=== PATIENT | female | born 1940 | race Caucasian/White ===

== ENCOUNTER 2020-07-04 11:01 | Outpatient (REF) | payer MEDICARE, SELFPAY ==
--- NOTE | ~2020-07-04 | MM_ITS ---
EXAMINATION: MM SCREENING DIGITAL BREAST TOMOSYNTHESIS, BILATERAL CLINICAL INFORMATION: Screening. Asymptomatic. The lifetime risk of breast cancer based on the Tyrer-Cuzick Model is 0.8%. COMPARISON: Mammography: June 13, 2019 and studies dating back to March 07, 2010 TECHNIQUE: Digital breast tomosynthesis is performed in both the craniocaudal and mediolateral oblique views along with computer-aided detection (CAD). Synthesized 2D images are generated from the tomosynthesis. FINDINGS: There are scattered areas of fibroglandular density (ACR BI-RADS breast composition Category b). There are no significant masses, abnormal calcifications, or other abnormalities. MM/MM tomosynthesis screening BI IMPRESSION: There are no significant changes from prior study. ASSESSMENT: BI-RADS 1: Negative RECOMMENDATION: Routine annual mammography screening. This patient's information was entered into a reminder system with a target due date for their next mammogram.
== END 2020-07-04 11:02 | disposition home or self-care (01) ==
LOC: HO.MAMMO 11:01
PROVIDERS: Visit Provider Internal Medicine
DX: Z12.31 Encounter for screening mammogram for malignant neoplasm of breast (principal)
CPT/HCPCS: 77063; 77067

== ENCOUNTER 2021-07-05 10:18 | Outpatient (REF) | payer MEDICARE, SELFPAY ==
--- NOTE | ~2021-07-05 | MM_ITS ---
EXAMINATION: MM SCREENING DIGITAL BREAST TOMOSYNTHESIS, BILATERAL CLINICAL INFORMATION: Screening. Asymptomatic. The lifetime risk of breast cancer based on the Tyrer-Cuzick Model is 1%. COMPARISON: Mammography: 07/04/2020, 06/13/2019, 06/11/2018 TECHNIQUE: Digital breast tomosynthesis is performed in both the craniocaudal and mediolateral oblique views along with computer-aided detection (CAD). Synthesized 2D images are generated from the tomosynthesis. FINDINGS: There are scattered areas of fibroglandular density (ACR BI-RADS breast composition Category b). Parenchymal pattern is similar to prior studies. There is stable oval asymmetric density central left breast mid depth on MLO view similar to prior exams. There is no developing density or interval mass or architectural abnormality in either breast. No abnormal calcifications. The axilla and skin contours are unremarkable. MM/MM tomosynthesis screening BI IMPRESSION: No significant changes from prior exams. ASSESSMENT: BI-RADS 2: Benign RECOMMENDATION: Routine annual mammography screening. This patient's information was entered into a reminder system with a target due date for their next mammogram.
== END 2021-07-05 10:19 | disposition home or self-care (01) ==
LOC: HO.MAMMO 10:18
PROVIDERS: PCP Internal Medicine; Visit Provider Internal Medicine
DX: Z12.31 Encounter for screening mammogram for malignant neoplasm of breast (principal)
CPT/HCPCS: 77063; 77067

== ENCOUNTER 2022-07-07 10:16 | Outpatient (REF) | payer MEDICARE, SELFPAY ==
--- NOTE | ~2022-07-07 | MM_ITS ---
EXAMINATION: MM SCREENING DIGITAL BREAST TOMOSYNTHESIS, BILATERAL CLINICAL INFORMATION: Screening. Asymptomatic. COMPARISON: Mammography: 07/05/2021, 07/04/2020, 06/13/2019 TECHNIQUE: Digital breast tomosynthesis is performed in both the craniocaudal and mediolateral oblique views along with computer-aided detection (CAD). Synthesized 2D images are generated from the tomosynthesis. FINDINGS: There are scattered areas of fibroglandular density (ACR BI-RADS breast composition Category b). There are no significant masses, abnormal calcifications, or other abnormalities. No architectural abnormality or developing density or significant change from prior studies. There is a dermal lesion overlying the mid medial left breast, marked with skin marker. There are some scattered incidental vascular calcifications. The axilla are unremarkable. MM/MM tomosynthesis screening BI IMPRESSION: No mammographic evidence of malignancy. ASSESSMENT: BI-RADS 2: Benign RECOMMENDATION: Routine annual mammography screening. This patient's information was entered into a reminder system with a target due date for their next mammogram.
== END 2022-07-07 10:17 | disposition home or self-care (01) ==
LOC: HO.MAMMO 10:16
PROVIDERS: Visit Provider Internal Medicine
DX: Z12.31 Encounter for screening mammogram for malignant neoplasm of breast (principal)
CPT/HCPCS: 77063; 77067

== ENCOUNTER 2024-12-25 14:55 | Emergency (ER) | payer MEDICARE, SELFPAY ==
--- OUTSIDE RECORDS SUMMARY | 2024-12-20 23:59 | XMS_ITS | Continuity of Care Document ---
Author Organization [facility], [place] Pedro lt Address [address] [place] [address]- Care Team Providers Care Front Services Agent Name Role Phone Bere DENTON, Elanie Mcwilliams Primary Care Physician [phone] Encounter [facility] Date(s): 12/13/24 - 12/20/24 [facility] [place] [address] [place] [address]- Encounter Diagnosis Benign Essential Hypertension(Discharge Diagnosis) - 12/12/24 Osteoporosis(Discharge Diagnosis) - 12/13/24 Fatty liver(Discharge Diagnosis) - 12/13/24 Subclinical hypothyroidism(Discharge Diagnosis) - 12/13/24 Disturbance of memory MOCA immed recall 0/5(Discharge Diagnosis) - 12/13/24 Attending Physician: Elaine Blackburn NP Referring Physician: Tre Morales MD Encounter Type: Office Visit Allergies, Adverse Reactions, Alerts Substance Criticality Severity Reaction Reaction Severity Status amoxicillin 1 Active methenamine 2 Active Nuts Active Paxlovid 3 Active nitrofurantoin 4 Act adalberto lisinopril cough Active Augmentin Active Percocet 7.5/325 nausea Act adalberto 1pt tolerated piperacillin/tazobactam without issue (03/2013) 2raynauds 3diarrhea 4naisea hair loss Immunizations Given and Recorded Vaccine Date Status Refusal Reason RSV vaccine, preF A-preF B, recombinant 06/03/24 R ecorded influenza virus vaccine, inactivated 01/15/24 Jassi rded influenza virus vaccine, inactivated 02/01/23 Jassi rded influenza virus vaccine, inactivated 02/05/22 Jassi rded influenza virus vaccine, inactivated 01/16/21 Jassi rded influenza virus vaccine, inactivated 02/10/18 Give n influenza virus vaccine, inactivated 1 02/02/17 Gi sandra influenza virus vaccine, inactivated 02/14/16 Give n influenza virus vaccine, inactivated 02/06/15 Give n influenza virus vaccine, inactivated 02/07/14 Give n influenza virus vaccine, inactivated 01/11/13 Give n influenza virus vaccine, inactivated 02/19/11 Give n influenza virus vaccine, inactivated 03/01/10 Give n SARS-CoV-2(COVID-19)mRNA-LNP vac([id number]) 01/15/24 Recorded SARS-CoV-2(COVID-19)mRNA-LNP vac([id number]) 02/01/23 Recorded pneumococcal 20-valent conjugate vaccine 2 10/29/22 Given tetanus-diphtheria toxoids (Td) 3 07/09/22 Given tetanus-diphtheria toxoids (Td) 4 07/11/08 Given [id number] 12y+ bivalent booster vax 02/05/22 Recorded SARS-CoV-2 mRNA ([id number]) vax 09/03/21 Recorded SARS-CoV-2 (COVID-19) mRNA BNT-162b2 vac 02/12/21 Recorded SARS-CoV-2 (COVID-19) mRNA BNT-162b2 vac 06/25/20 Given SARS-CoV-2 (COVID-19) mRNA BNT-162b2 vac 06/04/20 Recorded hepatitis B adult vaccine 07/12/20 Given hepatitis B adult vaccine 01/23/20 Given hepatitis B adult vaccine 12/21/19 Given Hepatitis A Adult Vaccine 07/12/20 Given Hepatitis A Adult Vaccine 12/21/19 Given Influenza Virus Vaccine (oldterm) 12/28/19 Recorde d Influenza Virus Vaccine (oldterm) 02/01/14 Recorde d Influenza Virus Vaccine (oldterm) 02/09/09 Given Influenza Virus Vaccine (oldterm) 02/29/08 Given zoster vaccine, inactivated 10/26/17 Recorded zoster vaccine, inactivated 08/26/17 Recorded pneumococcal 13-valent vaccine 05/16/14 Given pneumococcal 13-valent vaccine 05/16/14 Given tetanus/diphtheria/pertussis, acel(Tdap) 03/12/12 Given Fluzone Preservative-Free (oldterm) 5 01/27/12 Giv en Zostavax (oldterm) 01/11/11 Given pneumococcal 23-valent vaccine 6 07/11/08 Given pneumococcal 23-valent vaccine 09/05/98 Given Influenza Inactive (IM) (oldterm) 7 04/15/06 Given Tetanus Toxoid Vaccine (oldterm) 05/04/98 Given 1Result Comment: [02/02/2017] [facility] [id number] HD 2Result Comment: [id number] 3Result Comment: [facility]# [id number] 4Admin Note: ADMIN BY MEGGAN 5Anikolein Note: vis given 6Admin Note: ADMIN BY MEGGAN 7Amiko Note: recieved elsewhere Medications amLODIPine 5 mg oral tablet 1 tablet, By Mouth, Daily, # 30 tablet, 5 Refills, Maintenance, 11/08/24 7:11:00 AM EDT, [facility] # [facility], 159.5, cm, 10/18/24 10:10:00 EDT, Height, 63.5, kg, 03/17/23 17:41:00 EST, Dry Weight Start Date: 11/08/24 Status: Ordered Quantity: 30.0 Unit: tablet Repeat number: 6 aspirin 81 mg oral delayed release tablet 81 mg, 1, tablet, By Mouth, Daily, # 30 tablet, Refills 0, Maintenance, 09/01/20 10:24:00 PM EDT, Partial fill upon patient request if the prescription is for a schedule II opioid drug. Start Date: 09/01/20 Status: Ordered Quantity: 30.0 Unit: tablet Repeat number: 1 diclofenac 1% topical gel 1 application, Topically, 4 times a day, # 100 Gm, 0 Refills, Maintenance, 10/18/24 10:21:00 AM EDT,Gel, [facility] # [facility], Partial fill upon patient request if the prescription is for a schedule II opioid drug., 159.5, cm, 10/18/24 10:10:00 EDT, Height, 63.5, kg, 03/17/23 17:41:00 EST, Dry Weight Start Date: 10/18/24 Status: Ordered Quantity: 100.0 Unit: g Repeat number: 1 Estrace Vaginal Cream 0.1 mg/g See Instructions, Three times a week, # 42.5 Gm, 0 Refills, Maintenance, 05/14/22 2:45:00 PM EST, [facility] # [facility], Partial fill upon patient request if the prescription is for a schedule II opioiddrug., 165.1, cm, 04/29/22 11:53:00 EST, Height, 61.69, kg, 12/03/21 16:38:00 EDT, Dry Weight Start Date: 05/14/22 Status: Ordered Quantity: 42.5 Unit: g Repeat number: 1 Indications: Urinary tract infection, site not specified; famotidine 40 mg oral tablet 1 tablet, By Mouth, Daily at bedtime, # 90 tablet, 1 Refills, Maintenance, 07/11/24 7:10:00 PM EDT, [facility] # [facility], 159.5, cm, 06/03/24 9:08:00 EST, Height, 63.5, kg, 03/17/23 17:41:00 EST, Dry Weight Start Date: 07/11/24 Status: Ordered Quantity: 90.0 Unit: tablet Repeat number: 1 fluticasone 50 mcg/inh nasal spray See Instructions, INHALE 2 SPRAYS IN EACH NOSTRIL DAILY. USE OPPOSITE HAND FOR EACH NOSTRIL, # 16 Gm, 5 Refills, Maintenance, 10/17/24 7:13:00 AM EDT, [facility] # [facility], 30, INHALE 2 SPRAYS IN EACH NOSTRIL DAILY. USE OPPOSITE HAND FOR EACH NOSTRIL, 159.5, cm, 06/03/24 9:08:00 EST, Height, 63.5, kg, 03/17/23 17:41:00 EST, Dry Weight Start Date: 10/17/24 Status: Ordered Quantity: 16.0 Unit: g Repeat number: 6 hydrocortisone 1% topical cream 1 application, Topically, 3 times a day, # 21 Gm, 1 Refills, Maintenance, 03/04/21 11:10:00 AM EDT, Cream, [facility] # [facility], Partial fill upon patient request if the prescription is for a schedule II opioid drug., 1 application Topically 3 times a day, 165, cm, 02/19/21 9:19:00 EDT, Height, 62, kg, 02/04/21 18:38:00 EDT, Dry Weight Start Date: 03/04/21 Status: Ordered Quantity: 21.0 Unit: g Repeat number: 2 losartan 50 mg oral tablet 50 mg, 1, tablet, By Mouth, Daily, # 90 tablet, Refills 1, Tot. Refills 1, Maintenance, 08/24/24 11:01:00 AM EDT, Route to Pharmacy Electronically, [facility], 159.5, cm, 06/03/24 9:08:00 EST, Height, 63.5, kg, 03/17/23 17:41:00 EST, Dry Weight Start Date: 08/24/24 Status: Ordered Quantity: 90.0 Unit: tablet Repeat number: 2 MiraLax oral powder for reconstitution = 17 Gm, By Mouth, Daily, dissolve in water before taking, # 255 Gm, 1 Refills, Maintenance, 12/01/22 10:34:00 AM EDT, REC Powder, [facility], Partial fill upon patient request if the prescription is for a schedule II opioid drug., 17 Gm By Mouth Daily,Instr:dissolve in water before taking,165, cm, 11/29/22 19:50:00 EDT, Height, 62, kg, 11/29/22 19:50:00 EDT, Dry Weight Start Date: 12/01/22 Status: Ordered Quantity: 255.0 Unit: g Repeat number: 2 mirtazapine 15 mg oral tablet 1 tablet, By Mouth, Daily at bedtime, # 90 tablet, 1 Refills, Maintenance, 10/09/24 5:14:00 PM EDT, [facility], 159.5, cm, 06/03/24 9:08:00 EST, Height, 63.5, kg, 03/17/23 17:41:00 EST, Dry Weight Start Date: 10/09/24 Status: Ordered Quantity: 90.0 Unit: tablet Repeat number: 1 Prolia 60 mg/mL subcutaneous solution 1 mL = 60 mg, Subcutaneous Injection, Every 6 months, # 1 mL, 1 Refills, Maintenance, 06/03/24 9:12:00 AM EST, Solution, [facility], 159.5, cm, 06/03/24 9:08:00 EST, Height, 63.5, kg, 03/17/23 17:41:00 EST, Dry Weight Start Date: 06/03/24 Status: Ordered Quantity: 1.0 Unit: mL Repeat number: 2 Tums Smoothies 750 mg oral tablet, chewable 1 tablet = 750 mg, Chew, 2 times a day, PRN as needed for dyspepsia, # 8 tablet, 0 Refills, Maintenance, 09/01/20 10:25:00 PM EDT, Chew Tablet, Partial fill upon patient request if the prescription is for a schedule II opioid drug. Start Date: 09/01/20 Status: Ordered Quantity: 8.0 Unit: tablet Repeat number: 1 Tylenol 325 mg oral tablet 650 mg, 2, tablet, By Mouth, Every 4 hours, PRN, Do not take together with percocer, Refills 0, Maintenance, Pain , Mild, 07/15/21 10:20:00 AM EDT, Partial fill upon patient request if the prescription is for a schedule II opioid drug. Start Date: 07/15/21 Status: Ordered Repeat number: 1 Vitamin B12 1000 mcg oral tablet 1 tablet = 1,000 mcg, By Mouth, Daily, 0 Refills, Maintenance, 03/13/21 7:04:00 AM EST, Partial fill upon patient request if the prescription is for a schedule II opioid drug. Start Date: 03/13/21 Status: Ordered Repeat number: 1 Vitamin D3 oral tablet 1 tablet = 400 International_Units, By Mouth, Daily, # 30 tablet, 0 Refills, Maintenance, 09/01/20 10:25:00 PM EDT, Tablet, Partial fill upon patient request if the prescription is for a schedule II opioid drug. Start Date: 09/01/20 Status: Ordered Quantity: 30.0 Unit: tablet Repeat number: 1 Problem List Condition Confirmation Course Effective Dates Status H ealth Status Informant Acquired lymphedema 1 Confirmed Active Asymptomatic bacteriuria- Klebsiella pneum Confirmed Active Asymptomatic Varicose Veins 2 Confirmed Active Benign Essential Hypertension Confirmed 07/11/08 Active Chronic back pain Confirmed Active Dupuytren's contracture rt hnad Confirmed Active H/O ovarian cancer Confirmed Active H/O multiple small bowel obstructions Confirmed 03/19/13 Active History of compression fracture of vertebral column L5 Confirmed Active Insomnia Confirmed Active Leukopenia Confirmed Active LVH (left ventricular hypertrophy) 3, 4 Confirmed Active Disturbance of memory MOCA immed recall 0/5 Confirmed 01/17/22 Active Osteoporosis compf fx spine.normal PTH/no paraprotein 5, 6 Confirmed Active Peripheral neuropathy normal B12/spep 2019 Confirmed 11/19/20 Active Proctitis;radiation 7 Confirmed Active Prolonged QT interval 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' now 448 Confirmed Active Raynaud's disease Confirmed Active Recurrent UTI- seeing urology Confirmed Active RLS (restless legs syndrome) 8 Confirmed Active Fatty liver Confirmed 12/15/19 Active Celiac artery stenosis- no intervention needed per vascular team Confirmed 02/04/21 Active Subclinical hypothyroidism Confirmed 11/17/19 Active Vitamin B12 deficiency (non anemic) Confirmed Active 1followed Dr beaver; surgery 1004.[address] Beaver ;vascular 3402.10 4asymmetric septal hypettrophy also 5alendronare 10+ years 6no paraprotein 7per colonoscopy 2005 8refuses meds Diagnosis Diagnosis Type Effective Dates Health Status Clinical Service Informant Benign Essential Hypertension Discharge Diagnosis 12/12/24 Osteoporosis Discharge Diagnosis 12/13/24 Non-Specified Fatty liver Discharge Diagnosis 12/13/24 Subclinical hypothyroidism Discharge Diagnosis 12/13/24 Disturbance of memory MOCA immed recall 0/5 Discharge Diagnosis 12/13/24 Social History Social History Type Response Smoking Status Never (less than 100 in lifetime) entered on: 10/23/22 Sex Sex Representation Female (finding) Note * Marisol Miles: PERFORM Event Display: Patient Education/Instruction Authored Date: [id number] Ambulatory Adult Visit Summary [facility] [place] [facility] [address] [address] Name: SARBJIT ASHLEY : 1940?? Visit: 12/13/2024 08:55?? Ambulatory Visit Instructions ?? Your Care Team Primary Care Provider Bere Elaine DENTON? This Visit Provider Bere Elaine DENTON. Your Diagnosis Benign Essential Hypertension Osteoporosis compf fx spine.normal PTH/no paraprotein Fatty liver Subclinical hypothyroidism Disturbance of memory MOCA 24 immed recall 0/5 Vitals Signs Pulse Rate: 74 bpm Height: 159.5 cm Systolic Blood Pressure: 114 mm Hg Weight: 67.8 kg Diastolic Blood Pressure: 70 mm Hg Body Mass Index:??26.65 kg/m2??High Oxygen Saturation: 96 % Body surface area: 1.73 What to do next Follow-Up Appointments Follow Up with??Elaine Blackburn NP Why: for annual exam Where: ?? Follow Up with??Elaine Blackburn NP When:??In 6 months Where: ?? Future Orders TSH Rfx on Abnormal to Free T4 - Routine, Once, 12/13/24 9:21:00 EDT, Order for Today, [facility], Blood?? Vitamin D 25 Hydroxy Level - Routine, Once, 12/13/24 9:21:00 EDT, Order for Today, [facility], Blood?? Comprehensive Metabolic Panel - Routine, Once, 12/13/24 9:30:00 EDT, Order for Today, [facility], Blood?? Medications The list below reflects the information in our records and provided by you today along with any changes made during this visit. Please continue your medications until treatment is completed or stopped by your provider. If this is different from the information you have or there are other questions,please contact the prescribing provider. What How Much When Why Instructions Unchanged Acetaminophen (Tylenol 325 mg oral tablet) 2 tab(s) Oral Every 4 hours as needed for Pain , Mild Do not take together with percocer ?? Unchanged Amlodipine (amLODIPine 5 mg oral tablet) 1 tab(s) Oral Daily Unchanged Aspirin (aspirin 81 mg oral delayed release tablet) 1 tab(s) Oral Daily Unchanged Calcium Carbonate (Tums Smoothies 750 mg oral tablet, chewable) 1 tab(s) Chew Twice a day as needed for as needed for dyspepsia Unchanged Cholecalciferol (Vitamin D3 oral tablet) 1 tab(s) Oral Daily Unchanged Cyanocobalamin (Vitamin B12 1000 mcg oral tablet) 1 tab(s) Oral Daily Unchanged denosumab (Prolia 60 mg/ mL subcutaneous solution) 1 Milliliter Subcutaneous Injection Every 6 months Unchanged Diclofenac Topical (diclofenac 1% topical gel) 1 melchor Topically 4 times a day Unchanged Estradiol Topical (Estrace Vaginal Cream 0.1 mg/ g) See instructions Recurrent UTI;2017 Three times a week ?? Unchanged Famotidine (famotidine 40 mg oral tablet) 1 tab(s) Oral Daily at Bedtime Unchanged Fluticasone Nasal (fluticasone 50 mcg/ inh nasal spray) See instructions INHALE 2 SPRAYS IN EACH NOSTRIL DAILY. USE OPPOSITE HAND FOR EACH NOSTRIL ?? Unchanged Hydrocortisone Topical (hydrocortisone 1% topical cream) 1 melchor Topically 3 times a day Unchanged Losartan (losartan 50 mg oral tablet) 1 tab(s) Oral Daily Unchanged Mirtazapine (mirtazapine 15 mg oral tablet) 1 tab(s) Oral Daily at Bedtime Unchanged Polyethylene Glycol 3350 (MiraLax oral powder for reconstitution) 17 gram Oral Daily dissolve in water before taking ?? Test Performed Below is a partial list of the tests performed during your Visit. You may have had other tests and procedures not included in this list. Please discuss all test results with your provider. Comprehensive Metabolic Panel?-- Results Pending -- TSH Rfx on Abnormal to Free T4?-- Results Pending -- Vitamin D 25 Hydroxy Level?-- Results Pending -- Medications and Immunizations Administered Medications Given During Visit No medications given during this visit.?? Allergies (NKA means No Known Allergies) Augmentin Nuts Paxlovid Percocet 7.5/325??(nausea) amoxicillin lisinopril??(cough) methenamine nitrofurantoin Common Emergency Awareness Tips IS IT A STROKE? Act FAST and Check for these signs: FACE Does the face look uneven? ARM Does one arm drift down? SPEECH Does their speech sound strange? TIME Call at any sign of stroke ?? Heart Attack Signs Chest discomfort: Most heart attacks involve discomfort in the center of the chest and lasts more than a few minutes, or goes away and comes back. It can feel like uncomfortable pressure, squeezing, fullness or pain. Discomfort in upper body: Symptoms can include pain or discomfort in one or both arms, back, neck, jaw or stomach. Shortness of breath: With or without discomfort. Other signs: Breaking out in a cold sweat, nausea, or lightheaded. Remember, MINUTES DO MATTER. If you experience any of these heart attack warning signs, call to get immediate medical attention! ?? Smoking can increase your chances of developing chronic health problems and can cause harmful effects to other family members in your house. If you smoke, you are strongly encouraged to quit. Please call [facility] [employer]Row at [phone] or [phone]) or log in to [email or web address] for referrals to smoking cessation programs. ?? The National Suicide Prevention Hotline is available 24/11 if you or someone you know needs to find a reason to keep living. By calling 7-090-240-[employer] (2421) you'll be connected to a skilled, trained counselor at a crisis center in your area. [facility] ALTHIA Portal You can view and manage your care through the patient portal or by using a health care melchor of your choosing. [employer] is a website that allows you to securely view your medical information including your hospital discharge summary, office visit summaries, medications and follow-up visits. You can also request appointments, renew medications, and request access to your medical information using a health care melchor of your choosing, or just ask a question. You can enroll at [email or web address] or register during your next office visit. [facility], in keeping with [facility] guidance, no longer requires face masks for staff, patientsor visitors in most situations. Similiar to time spent indoors at other locations, there is the chance that you were exposed to repiratory viruses during your time with us (such as flu or COVID-19). If you develop symptoms concerning for a viral respiratory infection, please seek testing (and treatment if indicated) from your medical provider or home test kit. ?? Disclaimer: The information provided is of a general nature and is intended to be used in conjunction with the recommendations and advice of your health care practitioner. Every effort has been made to ensure that the information provided is accurate and complete at the time it is provided to you however, as your needs change, or, as new information becomes available, different or additional instructions may be required. ?? If you have questions, please consult with your primary care provider or pharmacist, as appropriate. This information is not intended to serve as substitution for assessment and evaluation by a qualified health care provider. If you do not have a primary care provider, you may find a [facility] provider by calling [employer] Link at [phone]. * [employer] Marianna MORA: PERFORM, SIGN, VERIFY Event Display: Clinical Summary Authored Date: [id number] Patient: SARBJIT ASHLYE Age: 84 years Sex: Female : 1940 Associated Diagnoses: None Author: Tiffani RN, Marianna Visit Information Type of Visit Action Taken: Patient here with Elaine for a visit today, Supplied her own Prolia, RN administered 60mg Prolia to right arm, Patient tolerated well. Due next in Jun 2025. [id number] exp september 2027. Patient on medication for osteoporosis .. Patient Care team information Care Team Personnel Name: Jerry Hernández RN Position: [facility] ED RN W/OE and Tasks Member Role: Primary Care Nurse Name: Darline Schneider NP Position: [facility] Associate Professional Member Role: Primary Care Nurse Address: [address] [place] [address] [place] [address]- FN Telecom: Name: Cherise Werner RN Position: [facility] RN Member Role: Primary Care Nurse Name: Edyta Plok RN Position: [facility] AMB Nurse Member Role: Primary Care Nurse Name: Teetee Rodriguez RN Position: [facility] RN Member Role: Primary Care Nurse Name: Elaine Blackburn NP Position: [facility] PCO Associate Professional Member Role: PCP Address: [address] [place] [address]- Telecom: Name: Muna Baldwin RN Position: [facility] RN Member Role: Primary Care Nurse Name: Rosanne Sequeira RN Position: [facility] RN Member Role: Primary Care Nurse Name: Mac Pfeiffer RN Position: [facility] Outreach Member Role: Primary Care Nurse Name: Tolu Koehler RN Position: [facility] Juventino RN Member Role: Primary Care Nurse Name: Kelvin Raymundo RN Position: [facility] RN Member Role: Primary Care Nurse Name: Janice Hutchinson RN Position: [facility] RN Member Role: Primary Care Nurse Name: Yvonne Tong RN Position: [facility] RN Member Role: Primary Care Nurse Name: Ari Witt RN Position: [facility] RN Member Role: Primary Care Nurse Name: Jared Brunner RN Position: [facility] RN Member Role: Primary Care Nurse Name: Ralf Donovan RN Position: [facility] RN Member Role: Primary Care Nurse Name: Susanne Crooks RN Position: [facility] RN Member Role: Primary Care Nurse Name: Gardenia Garner RN Position: [facility] RN Member Role: Primary Care Nurse Name: Tracy Cruz RN Position: [facility] Catering Sales Manager Member Role: Primary Care Nurse Name: Lindsey Michel RN Position: [facility] Catering Sales Manager Member Role: Primary Care Nurse Name: Macho Woo RN Position: [facility] Outreach Member Role: Primary Care Nurse Name: Ally Siddiqui RN Position: [facility] RN Member Role: Primary Care Nurse Name: Sanam Tellez RN Position: [facility] RN Member Role: Primary Care Nurse Name: Hailee Vogt RN Position: [facility] RN Member Role: Primary Care Nurse Name: Bertha Hernandez RN Position: [facility] RN Member Role: Primary Care Nurse Name: Cherise Westbrook RN Position: [facility] RN Member Role: Primary Care Nurse Care Team Related Persons Name: STEPHANIE ASHLEY Name: DAMON ASHLEY Insurance Providers Guarantor name: [facility] [place] [facility] [place] Plan Information #: 1 Payer: [facility] PPO Payer Identifier: CHARLEEN Member Number: [id number] Group Number: CHARLEEN Subscriber Identifier: [id number] Relationship to Subscriber: self Coverage Type: Medicare PPO Coverage Verification Date: NA Telecom: CHARLEEN Address:
--- NOTE | ~2024-12-25 | XR_ITS ---
CLINICAL HISTORY: anterior swelling and tender 4 view left knee Comparison: None provided Findings: Osteopenia. Transversely oriented fracture of the mid portal vein subtle, nondisplaced. Trace joint effusion. 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 No radiopaque foreign body. Anterior soft tissue swelling. IMPRESSION: Patellar fracture. This document has been electronically signed by: Mahamed Bean MD on 12/25/2024 17:44:17
--- NOTE | ~2024-12-25 | XR_ITS ---
CLINICAL HISTORY: fall, olecranon ttp 2 view right elbow Comparison: None provided Findings: Distracted olecranon fracture, with 1.6 cm diastasis between the fragments. Additional nondisplaced fracture along the olecranon process. Regional soft tissue edema/hematoma. No significant arthritic change or erosions. Small joint effusion. No radiopaque foreign body. IMPRESSION: Multipart proximal ulnar fracture. This document has been electronically signed by: Mahamed Bean MD on 12/25/2024 17:38:43
[2024-12-25 15:02] VITALS: BP 138/80; PULSE 71; O2SAT 98
[2024-12-25 15:26] VITALS: BP 152/72; PULSE 72; RESP 20; TEMP 36.6; O2SAT 96; BMI 25.9
[2024-12-25 16:00] VITALS: BP 178/88; PULSE 70; RESP 15; TEMP 36.9; O2SAT 96
--- NOTE | 2024-12-25 16:20 | ED.FALL ---
HPI - Fall General Chief Complaint: Fall Stated Complaint: FALL, LT KNEE PAIN, RT ELBOW PAIN Time Seen by Provider: 12/25/24 16:05 Related Data Allergies Allergy/AdvReac Type Severity Reaction Status Date / Time No Known Allergies Allergy Verified 12/25/24 15:30 [facility] Social History Social History Smoked in Last 30 Days: No Use of substances other than those prescribed or required for medical reasons: No Advance Directives: Yes Advance Directives Information Provided: No Advance Directives on File: No Do you have a plan to hurt others: No Plan Physical Exam Exam: Exam: Primary Survey: GCS: 15 Airway: Intact airway Breathing: Spontaneous respirations with bilateral breath sounds Circulation: Palpable bilateral carotid, brachial, femoral DP pulses with good skin color and distal perfusion. Disability: No gross paresis of the extremities or obvious focal neuro deficit. E FAST Ultrasound: NA Secondary Survey GENERAL: Well appearing. No apparent distress. Alert. HEAD: The head is atraumatic, without swelling or ecchymosis of the face or behind the ears, including the periorbital area. There is no tenderness to face, and the oral and nasal mucosa are nonbloody. Dentition is intact. The TMs are without hemotympanum. NECK: Cervical collar in place. There is no midline cervical neck tenderness or stepoffs. The patient denies any numbness, tingling, or weakness of the extremities. ?After CT/clinical clearance; Later examination after collar removal: The patient is able to range their neck completely without midline cervical pain, numbness, tingling, or weakness. EYES: Normal to inspection. Sclera non-icteric. EOMI, Pupils grossly symmetric/reactive. ENMT: External nose normal. No facial depression, gross hemotympanum, epistaxis. RESPIRATORY: Respiratory effort normal. Lungs clear to auscultation bilaterally. CARDIOVASCULAR: Regular rate. Normal rhythm. No murmur. No rubs. GI: Soft, non-tender, non-distended. No rebound or guarding. No masses palpable. No hepatosplenomegaly. No bruising. MSK: Chest Wall: Atraumatic, nontender, no crepitus, seat belt sign or ecchymosis. Back: No ecchymosis, no abrasions or other external signs of trauma, no midline spinal tenderness. Upper Extremities: Right upper extremity right-hand dominant bruising tenderness right elbow olecranon region. No gross instability she is able to pronate and supinate with limited range neurovascularly intact distally otherwise: Atraumatic, no swelling, deformity, focal tenderness, +FROM of all joints. Lower Extremities: Left knee severe tenderness over the patella moderate swelling diffusely. Limited range of motion secondary to pain. No popliteal tenderness or gross instability. Full range of motion at the ankle with some pain exhibited. Neurovascularly intact otherwise: Atraumatic, no swelling, deformity, focal tenderness, +FROM of all joints. SKIN: No jaundice. No abrasions, lacerations, or ecchymosis. NEUROLOGICAL: Alert. Comprehensive Neuro exam: Face symmetric, tongue midline, strong symmetric eye closure intact strong face deviation and shoulder shrug. Sensation intact to light touch throughout 5 out of 5 strength in bilateral upper extremities, 5 and 5 strength in lower extremities bilaterally? PSYCHIATRIC: Alert. Appearance appropriate for situation. Attitude cooperative. Vital Signs: Vital Signs: Last Vital Signs Temp 97.9 F 12/25/24 15:26 Pulse 72 12/25/24 15:26 Resp 20 12/25/24 15:26 BP 152/72 H 12/25/24 15:26 Pulse Ox 96 12/25/24 15:26 O2 Del Method Room Air 12/25/24 15:26 BMI result Body Mass Index 25.9 Medications Administered Discontinued Medications Generic Name Dose Route Start Last Admin Trade Name Freq PRN Reason Stop Dose Admin Acetaminophen 975 mg 12/25/24 16:18 12/25/24 17:16 Acetaminophen 325 Mg Tablet PO 12/25/24 16:19 975 mg ONCE ONE Administration Medical Decision Making Medical Decision Making MDM Narrative: Medical Decision Makin-year-old female quite healthy on baby aspirin no other anticoagulation with clear nonsyncopal, mechanical fall just prior to arrival and a drug store slipped on her shoe fell directly onto the right elbow and left knee no other blunt injuries or direct blows. No loss of consciousness pain and swelling and bruising to the right elbow and left knee only. No neurologic symptoms. Patient on unable to successfully support herself we will initiate PT case management. I did discuss this inability to ambulate or safely take care of herself at home with orthopedic team they did not feel that if she was admitted to the hospital she would get urgent surgery and recommended rehab. 17:51 we will initiate case management physician observation Preliminary Favored Differential Diagnosis: Elbow or knee fracture among additional considered etiologies Testing Interpreted Independently: ?See below for details Radiology or Lab testing Results Reviewed: ?See below for details Consults: ?See below for details Independent Historians/External Chart Reviews: ?See below for details Social Determinants of Health Impacting MDM/Planning: ?See below for details Independent Interpretation I performed an independent interpretation of an: Plain X-Ray (Right elbow with olecranon fracture, left knee with horizontal patellar fracture) Discharge Plan Discharge Clinical Impression: Closed olecranon fracture, Patellar fracture Patient Disposition: Home, Self-Care Instructions: Crutch Instructions (ED), Elbow Fracture (DC), Patellar Fracture (ED) Additional Instructions: DISCHARGE DIAGNOSES: Right olecranon, elbow bone fracture splint in place Left patella fracture horizontal with knee immobilizer in place HISTORY OF PRESENTATION: ?Fall without passing out or other injuries aside from right elbow and left knee EMERGENCY DEPARTMENT COURSE,TESTS, TREATMENTS: While in the ED today you had an x-ray of the right elbow and left knee identifying the fractures above you had a splint placed in the right arm with a sling and a knee immobilizer placed in the left leg DISCHARGE MEDICATIONS: ?[We have made no changes to your regular medication regimen] FOLLOW-UP: ?Call your primary or general physician soon as possible to discuss your symptoms, your ED visit and to discuss follow up plans Call orthopedics for follow up they are aware of your case INSTRUCTIONS ?& RETURN PRECAUTIONS: If any symptoms change first call your primary physician, if it is after-hours your primary doctors office should have a provider immigration paralegal you can speak with. If the symptoms are severe or very concerning to you then call 911 or return to the ED. Ibuprofen and Tylenol as needed keep the left knee elevated with a bag of ice on 10 minutes at a time several times a day Ben Logan MD Emergency Physician [facility] Referrals: [facility] [Provider Group, Hand Surgery] Referral Note: Be sure to tell him you have right elbow fracture but also a left knee patellar fracture Print Language: Tamazight
[2024-12-25 18:00] VITALS: BP 179/84; PULSE 70; RESP 15; TEMP 36.9; O2SAT 96
--- NOTE | 2024-12-25 21:59 | ED.FALL ---
HPI - Fall General Chief Complaint: Fall Stated Complaint: FALL, LT KNEE PAIN, RT ELBOW PAIN Time Seen by Provider: 12/25/24 16:05 History of Present Illness ED Provider: Ben Logan MD HPI Narrative: 84-year-old female with nonsyncopal fall at [facility] prior to arrival. Struck directly in the right elbow and left knee no other injuries. No LOC. takes baby aspirin daily pain and swelling about the right elbow no focal motor or sensory symptoms described. Pain and swelling left anterior knee with swelling there Related Data Home Medications ?Medication ?Instructions ?Recorded ?Confirmed amlodipine 5 mg tablet 5 mg PO DAILY 12/26/24 12/26/24 denosumab 60 mg/mL subcutaneous 60 mg subcut [id number] 12/26/24 12/26/24 syringe (Prolia) famotidine 40 mg tablet 40 mg PO DAILY 12/26/24 12/26/24 losartan 50 mg tablet 50 mg PO DAILY 12/26/24 12/26/24 mirtazapine 15 mg tablet 15 mg PO BEDTIME 12/26/24 12/26/24 Previous Rx's ?Medication ?Instructions ?Recorded oxycodone 5 mg tablet 5 mg PO Q6H PRN pain #4 tabs 12/28/24 Allergies Allergy/AdvReac Type Severity Reaction Status Date / Time No Known Allergies Allergy Verified 12/25/24 15:30 Physical Exam Exam: Exam: Primary Survey: GCS: 15 Airway: Intact airway Breathing: Spontaneous respirations with bilateral breath sounds Circulation: Palpable bilateral carotid, brachial, femoral DP pulses with good skin color and distal perfusion. Disability: No gross paresis of the extremities or obvious focal neuro deficit. E FAST Ultrasound: NA Secondary Survey GENERAL: Well appearing. No apparent distress. Alert. HEAD: The head is atraumatic, without swelling or ecchymosis of the face or behind the ears, including the periorbital area. There is no tenderness to face, and the oral and nasal mucosa are nonbloody. Dentition is intact. The TMs are without hemotympanum. NECK: Cervical collar in place. There is no midline cervical neck tenderness or stepoffs. The patient denies any numbness, tingling, or weakness of the extremities. ?After CT/clinical clearance; Later examination after collar removal: The patient is able to range their neck completely without midline cervical pain, numbness, tingling, or weakness. EYES: Normal to inspection. Sclera non-icteric. EOMI, Pupils grossly symmetric/reactive. ENMT: External nose normal. No facial depression, gross hemotympanum, epistaxis. RESPIRATORY: Respiratory effort normal. Lungs clear to auscultation bilaterally. CARDIOVASCULAR: Regular rate. Normal rhythm. No murmur. No rubs. GI: Soft, non-tender, non-distended. No rebound or guarding. No masses palpable. No hepatosplenomegaly. No bruising. MSK: Chest Wall: Atraumatic, nontender, no crepitus, seat belt sign or ecchymosis. Back: No ecchymosis, no abrasions or other external signs of trauma, no midline spinal tenderness. Upper Extremities: Right elbow ecchymotic swollen limited range of motion pronation flexion-extension due to pain and swelling. Soft compartments in the upper and forearm. Neurovascularly intact distally otherwise: Atraumatic, no swelling, deformity, focal tenderness, +FROM of all joints. Lower Extremities: Left knee swelling tender over the patella. Atraumatic, no swelling, deformity, focal tenderness, +FROM of all joints. SKIN: No jaundice. No abrasions, lacerations, or ecchymosis. NEUROLOGICAL: Alert. Comprehensive Neuro exam: Face symmetric, tongue midline, strong symmetric eye closure intact strong face deviation and shoulder shrug. Sensation intact to light touch throughout 5 out of 5 strength in bilateral upper extremities, 5 and 5 strength in lower extremities bilaterally? PSYCHIATRIC: Alert. Appearance appropriate for situation. Attitude cooperative. Vital Signs: Vital Signs: Last Vital Signs Temp 97.6 F 12/28/24 11:27 Pulse 86 12/28/24 11:27 Resp 20 12/28/24 11:27 BP 125/67 12/28/24 11:27 Pulse Ox 94 12/28/24 11:27 O2 Del Method Room Air 12/28/24 11: O2 Flow Rate 94 12/26/24 01:19 BMI result Body Mass Index 25.9 Course Reevaluation(s) Reevaluation #1: 19:00 physician observation placed for case management SNF placement due to injury. Inability to walk safely home. Time: 08:25 Reevaluation #2: 0825 12/26/24 Leopoldo, VISUAL BASIC PROGRAMMER: Patient remains on physician observation pending PT/CM evaluation. Vital signs stable. Time: 09:00AM Date: 12/27/24 Provider: CEZAR Gross Patient in physician observation for case management needs. No acute events reported overnight.? No current issues or complaints. VS stable. Patient is pending placement at facility/pending PT/CM eval. Will continue to monitor. 4:25 PM 12/27/2024 (Jerrica Hylton PA-C): It was brought to my attention that patient is hypotensive, patient reports that she is feeling well, has no current concerns. Blood pressure 87/55. She does report that she is tired however states that this is attributed to her not being able to sleep for the last 2 days as she has been awaiting in the emergency room. 6:00 PM 12/27/2024 (Jerrica Hylton PA-C): Labs returned, she has no leukocytosis, stable H&H, chemistry revealing elevated creatinine at 1.53 and a BUN of 27, no previous for comparison. AST and ALT slightly elevated at 50 and 46, alk phos 217. Patient medicated with 1 L of IV fluids. Likely dehydration and etiology. Discussed with Dr. Diaz, who recommends repeating chemistry after IV fluids are completed. We will also repeat troponin as we have no previous EKG for comparison. Blood pressure has improved, 116/59. EKG performed, revealing normal sinus rhythm at a ventricular rate of 84 beats per minute, there is a right bundle-branch block seen, we have no previous for comparison. No STEMI. Sign-out given to my colleague, Alejandro Mclean PA-C pending repeat CMP, trop, will continue in physician observation. Reevaluation #3: 1:44 AM 12/28/2024 (Marilee ROBB): Patient is signed out to this provider at shift change, in summary the patient is an 84-year-old female originally presenting to the ED for evaluation after a fall, was found to have a patellar fracture, was held for case management and STR placement. On previous provider's shift the patient reportedly became hypotensive without complaint. Patient was provided IV fluid hydration with resolution of hypotension. Initial labs prior to fluid hydration showed stable H&H, without leukocytosis, there was an elevated creatinine at 1.53 with BUN of 27. Following IV fluid hydration patient was ordered for repeat troponin and CMP. Patient is signed out pending repeat laboratory evaluation. At this time the patient's laboratory evaluation has resulted and shows improvement in creatinine, as well as normal troponin. The patient is medically cleared to return to case management status for STR placement. 0912/28/2024 Observation care revealed the the patient does not meet medical necessity for hospitalization. Final disposition of discharge to [facility] discussed with the patient. Patient completed observation care at 0911, total time spent in observation care was 2 days, 15 hours, and 20 minutes. Time: 11:03 Additional Reevaluation(s): 01/01/25 O'Ramos- the patient's urine culture grew mixed bacterial do characteristics of contamination. I reviewed her urinalysis that did not have a significant amount of squamous epithelial cells, there was positive leukocytes, esterase and nitrites. The patient is discharged to [facility], I called [facility] and spoke to the patient's nurse. The patient has no fever in his not had any complaints of UTI symptoms. I advised nursing staff that if the patient does complain of UTI symptoms she can have their provider repeat a urinalysis. Medications Administered Discontinued Medications Generic Name Dose Route Start Last Admin Trade Name Freq PRN Reason Stop Dose Admin Acetaminophen 975 mg 12/25/24 16:18 12/25/24 17:16 Acetaminophen 325 Mg Tablet PO 12/25/24 16:19 975 mg ONCE ONE Administration Acetaminophen 650 mg 12/25/24 20:00 12/26/24 08:24 Acetaminophen 325 Mg Tablet PO 650 mg RQ4H WHILE AWAKE [place] Administration Acetaminophen 650 mg 12/26/24 12:00 12/28/24 07:58 Acetaminophen 325 Mg Tablet PO 650 mg RQ4H WHILE AWAKE [place]A Administration Al Hydroxide/Mg Hydroxide 30 ml 12/28/24 03:34 12/28/24 03:48 Magnesium Hydrox/Alum Hydrox 30 Ml Oral.Susp PO 12/28/24 03:35 30 ml ONCE ONE Administration Amlodipine Besylate 5 mg 12/26/24 08:32 12/26/24 09:35 Amlodipine Besylate 5 Mg Tablet PO 12/26/24 08:33 5 mg ONCE ONE Administration Protocol Aspirin 81 mg 12/26/24 09:27 12/26/24 09:34 Aspirin 81 Mg Tab.Chew PO 12/26/24 09:28 81 mg ONCE ONE Administration Famotidine 40 mg 12/26/24 08:32 12/26/24 09:34 Famotidine 20 Mg Tablet PO 12/26/24 08:33 40 mg ONCE ONE Administration Famotidine 20 mg 12/28/24 03:34 12/28/24 03:48 Famotidine 20 Mg Tablet PO 12/28/24 03:35 20 mg ONCE ONE Administration Sodium Chloride 1,000 mls @ 999 mls/hr 12/27/24 16:26 12/27/24 18:29 Ns IV 12/27/24 17:26 Infused .Q1H1M ONE Infusion Lidocaine HCl 15 ml 12/28/24 03:34 12/28/24 03:48 Lidocaine Hcl Viscous 2 % 15 Ml Solution PO 12/28/24 03:35 15 ml ONCE ONE Administration Losartan Potassium 50 mg 12/26/24 08:32 12/26/24 09:36 Losartan Potassium 50 Mg Tablet PO 12/26/24 08:33 50 mg ONCE ONE Administration Protocol Ondansetron HCl 4 mg 12/26/24 17:37 12/26/24 17:41 Ondansetron Odt 4 Mg Tab.Rapdis TRANSLINGU 12/26/24 17:38 4 mg ONCE ONE Administration Ondansetron HCl 4 mg 12/27/24 13:33 12/27/24 13:37 Ondansetron Odt 4 Mg Tab.Rapdis TRANSLINGU 12/27/24 13:34 4 mg ONCE ONE Administration Ondansetron HCl 4 mg 12/28/24 05:15 12/28/24 05:49 Ondansetron Hcl 4 Mg/2 Ml Vial IVPUSH 12/28/24 05:16 4 mg ONCE ONE Administration Oxycodone HCl 5 mg 12/25/24 21:07 12/26/24 08:58 Oxycodone Hcl Immed Release 5 Mg Tablet PO 5 mg Q6H PRN Administration Pain, Mild 1-3,fever,headache Oxycodone HCl 5 mg 12/26/24 04:45 12/26/24 04:57 Oxycodone Hcl Immed Release 5 Mg Tablet PO 12/26/24 04:46 5 mg ONCE ONE Administration Procedures Orthopedic Splinting/Casting Injury #1: Side: right Upper Extremity Injury Location: elbow Upper Extremity Immobilizer: posterior splint Medical Decision Making Medical Decision Making MDM Narrative: Medical Decision Makin-year-old female with nonsyncopal fall striking the right elbow left knee. Injuries identified by x-rays and clinical examination are limited to right olecranon fracture and left horizontal patellar fracture. Case discussed with orthopedics see discussion below. Patient unfortunately due to the dominant arm injury and left knee injury her age and frailty given the situation she will not be safely discharged. Plan for knee immobilizer splint crutches and possible SNF placement tomorrow morning. No urgent operation as planned by Orthopedics per my discussion with the team Preliminary Favored Differential Diagnosis: [ ] among additional considered etiologies Testing Interpreted Independently: ?See below for details Radiology or Lab testing Results Reviewed: ?See below for details Consults: ?See below for details Independent Historians/External Chart Reviews: ?See below for details Social Determinants of Health Impacting MDM/Planning: ?See below for details Lab Data 12/27/24 16:49 12/27/24 19:22 Labs: Lab Results 12/27/24 12/27/24 12/28/24 Range/Units 16:49 19:22 06:34 WBC 4.8 (4.8-10.8) X10*3/uL RBC 4.03 L (4.20-5.50) X10*6/uL Hgb 12.7 (12.0-16.0) g/dl Hct 38.4 (37.0-47.0) % MCV 95.3 (80.0-98.0) fL MCH 31.5 (27.0-33.0) pg MCHC 33.1 (31.0-35.0) g/dl RDW 14.1 (11.0-16.0) % Plt Count 280 (160-400) X10*3/uL MPV 9.0 L (9.4-12.3) fL Immature Gran % (Auto) 0.4 (0.0-0.4) % Neut % (Auto) 81.6 H (45-73) % Lymph % (Auto) 8.2 L (20-40) % [place] % (Auto) 9.2 (2-11) % Eos % (Auto) 0.4 (0-4) % Baso % (Auto) 0.2 (0-2) % Lymph # (Auto) 0.4 L (1.2-4.9) X10*3/uL [place] # (Auto) 0.4 (0.1-1.2) X10*3/uL Eos # (Auto) 0.0 (0.0-0.4) X10*3/uL Baso # (Auto) 0.0 (0.0-0.2) X10*3/uL Abs Immat Gran (auto) 0.02 (0.00-0.03) X10*3/uL Absolute Neuts (auto) 3.9 (2.0-8.3) x10*3/uL Absolute Nucleated RBC 0.000 (0.0-0.012) X10*3/uL Nucleated RBC % (auto) 0.0 (0.0-0.2) /100WBC Sodium 139 140 (135-145) mmol/L Potassium 4.4 4.4 (3.3-5.1) mmol/L Chloride 108 109 H (96-108) mmol/L Carbon Dioxide 22 21 L (22-29) mmol/L Anion Gap 13 14 (12-20) BUN 27 H 27 H (9-16) mg/dL Creatinine 1.53 H 1.34 (0.5-1.4) mg/dL Estim Creat Clear Calc 26.0 29.7 Estimated GFR 32 38 Random Glucose 139 H 132 H (60-115) mg/dL Calcium 8.5 8.5 (8.4-10.2) mg/dL Magnesium 2.0 (1.6-2.6) mg/dL Total Bilirubin 0.7 0.7 (0.0-1.0) mg/dL Direct Bilirubin 0.3 (0.0-0.5) mg/dL AST 50 H 46 H (5-31) U/L ALT 46 H 47 H (0-31) U/L Alkaline Phosphatase 217 H 206 H (39-117) U/L Troponin I High Sens 7.0 6.0 (<3.5-17.0) ng/L Total Protein 6.1 L 5.9 L (6.5-8.0) g/dL Albumin 3.6 3.6 (3.5-5.0) g/dL Urine Color Yellow Urine Appearance Cloudy Urine pH 6.0 (5.0-9.0) Ur Specific [place] >= 1.030 H (1.005-1.025) Urine Protein 30 (1+) H (Neg-Trace) mg/dL Urine Glucose (UA) Negative (Negative) mg/dL Urine Ketones Trace (Negative) mg/dL Urine Blood Moderate (2+) H (Negative) Urine Nitrite Positive H (Negative) Ur Leukocyte Esterase Small (1+) H (Negative) Urine RBC >20 H (0-2) /HPF Urine WBC >50 H (0-5) /HPF Ur Squamous Epith Cells 0-2 (0-2) /HPF Calcium Oxalate Crystal Present Urine Bacteria 4+ (None Seen) Hyaline Casts 0-2 (0-2) /LPF Independent Interpretation I performed an independent interpretation of an: Plain X-Ray (Olecranon displaced fracture right side. Left horizontal patellar fracture) Discharge Plan Discharge Clinical Impression: Closed olecranon fracture, Patellar fracture Patient Disposition: Xfer SNF Transfer Details: [facility] Instructions: Crutch Instructions (ED), Elbow Fracture (DC), Patellar Fracture (ED) Additional Instructions: DISCHARGE DIAGNOSES: Right olecranon, elbow bone fracture splint in place Left patella fracture horizontal with knee immobilizer in place HISTORY OF PRESENTATION: ?Fall without passing out or other injuries aside from right elbow and left knee EMERGENCY DEPARTMENT COURSE,TESTS, TREATMENTS: While in the ED today you had an x-ray of the right elbow and left knee identifying the fractures above you had a splint placed in the right arm with a sling and a knee immobilizer placed in the left leg DISCHARGE MEDICATIONS: ?[We have made no changes to your regular medication regimen] FOLLOW-UP: ?Call your primary or general physician soon as possible to discuss your symptoms, your ED visit and to discuss follow up plans Call orthopedics for follow up they are aware of your case INSTRUCTIONS ?& RETURN PRECAUTIONS: If any symptoms change first call your primary physician, if it is after-hours your primary doctors office should have a provider operations liaison you can speak with. If the symptoms are severe or very concerning to you then call 911 or return to the ED. Ibuprofen and Tylenol as needed keep the left knee elevated with a bag of ice on 10 minutes at a time several times a day Ben Logan MD Emergency Physician [facility] Prescriptions: New oxycodone 5 mg tablet 5 mg PO Q6H PRN (Reason: pain) Qty: 4 0RF Rx Instructions: Partial Fill upon patient request. No Action losartan 50 mg tablet 50 mg PO DAILY famotidine 40 mg tablet 40 mg PO DAILY amlodipine 5 mg tablet 5 mg PO DAILY mirtazapine 15 mg tablet 15 mg PO BEDTIME Prolia 60 mg/mL syringe 60 mg subcut [id number] Referrals: [facility] Orthopedic Surgeons [Provider Group, Hand Surgery] Referral Note: Be sure to tell him you have right elbow fracture but also a left knee patellar fracture [facility] [Outside] Referral Note: [address] [place] [address] Elaine Blackburn NP [Primary Care Provider, Internal Medicine] Interventions: ED Discharge Assessment Last Done: 12/28/24 11:27 Discharge Date/Time: 12/28/24 11:28 Print Language: Finnish
[2024-12-26] VITALS (7 sets, daily range): BP systolic 95–144; BP diastolic 62–80; PULSE 72–106; RESP 14–18; TEMP 36.3–36.6; O2SAT 94–95
[2024-12-26] MEDS: oxyCODONE HCl Immed Release 5 MG TABLET PO ×3 (01:23→08:58)
--- NOTE | 2024-12-26 02:09 | PC.NURSE ---
Left knee immobilizer applied. Switched to hospital bed. Tolerated well.
--- NOTE | 2024-12-26 07:40 | PHA.MEDREC ---
Pharmacy Consult ? Medication Reconciliation Pharmacy has reviewed the medication reconciliation completed nu nursing. Claims match med rec.
--- NOTE | 2024-12-26 07:47 | PC.NURSE ---
Pt A&O X4 VSS Lise po well, at Bedside. Pt denies complaints.
--- NOTE | 2024-12-26 09:40 | PC.NURSE ---
Pt seen by PT and recommended for shirt term rehab per pt but pt and state they want pt to go home with VNA. I explained to pt concerns for mobility and safety -pt and verbalize understanding but states there's no place like home .
--- NOTE | 2024-12-26 15:19 | MHC.CM.PN ---
S/P Fall DX Ulnar + Patella FX. Baseline independent. PT eval recommendation is STR. [facility] has offered a bed. Patient has accepted the bed. Insurance authorization is pending. DP STR @ [facility] via BLS.
--- NOTE | 2024-12-26 17:58 | PC.NURSE ---
Addendum entered by Loyda Rosales RN 12/26/24 18:26: Pt continues to feel nauseous Noted episode of vomiting with three large heaves. Pt complaining of pain to RUE Reviewed availability for Tylenol and PRN Oxycodone Discussed with Pt and family at this time that will let GI rest for a short term to see if n/v improves. Ice chips ok for now and will progress as tolerated. Pt in agreement and will alert RN when she feels ready to be medicated. Original Note: Scheduled Tylenol not given at due time as Pt was sleeping. Discsussed with Pts family and all in agreement to allow Pt to rest. Will medicate when Pt awake. This RN called to bedside by family as Pt was significantly nauseous and vomiting. One dose Zofran given. Will continue to monitor.
[2024-12-27 03:58] VITALS: BP 111/57; PULSE 82; RESP 17; TEMP 36.6; O2SAT 93
[2024-12-27 05:08] VITALS: BP 101/51; PULSE 82; RESP 16; TEMP 36.9; O2SAT 93
[2024-12-27 16:00] VITALS: BP 87/55; PULSE 90; RESP 18; TEMP 36.8; O2SAT 97
--- NOTE | 2024-12-27 16:26 | ECG_ITS ---
Test Reason : FALL Blood Pressure : */* mmHG Vent. Rate : 84 BPM Atrial Rate : 84 BPM P-R Int : 132 ms QRS Dur : 108 ms QT Int : 390 ms P-R-T Axes : 55 -66 42 degrees QTcB Int : 460 ms Normal sinus rhythm Right bundle branch block Left anterior fascicular block Bifascicular block Abnormal ECG No previous ECGs available Referred By: Jerrica Hylton Electronically Signed By: SAJAN KIDD
[2024-12-27 16:30] VITALS: BP 99/60; PULSE 87
--- NOTE | 2024-12-27 16:32 | MHC.CM.PN ---
Insurance authorization has been received. Patient will discharge to [facility] tomorrow 12/27/24. Transportation is scheduled for 11 am peanut picker at [facility]
[2024-12-27 16:54] LABS: MANUAL DIFF FLAG NO
--- NOTE | 2024-12-27 16:54 | PC.NURSE ---
PA aware of low bp and decreased urinary output. 20g IV placed in left ac. fluids infusing per order
--- NOTE | 2024-12-27 16:55 | PC.NURSE ---
d/t right knee fx patient unable to complete ortho bp`s, PA aware stating will cancel
[2024-12-27 17:02] LABS: Hematocrit 38.4 % (37.0-47.0); Hemoglobin 12.7 g/dl (12.0-16.0); Imm Gran Abs Auto 0.02 X10*3/uL (0.00-0.03); Imm Gran Pct Auto 0.4 % (0.0-0.4); Lymphocytes Absolute Auto 0.4 X10*3/uL (1.2-4.9); Mean Corpuscular HGB Conc 33.1 g/dl (31.0-35.0); Mean Corpuscular Hemoglobin 31.5 pg (27.0-33.0); Mean Corpuscular Volume 95.3 fL (80.0-98.0); NRBC Abs Auto 0.000 X10*3/uL (0.0-0.012); NRBC Pct Auto 0.0 /100WBC (0.0-0.2); Platelet Count 280 X10*3/uL (160-400); Red Blood Count 4.03 X10*6/uL (4.20-5.50); White Blood Count 4.8 X10*3/uL (4.8-10.8)
[2024-12-27 17:03] VITALS: BP 116/59
[2024-12-27 17:10] LABS: Alanine Aminotransferase 46 U/L (0-31); Albumin Level 3.6 g/dL (3.5-5.0); Alkaline Phosphatase 217 U/L (39-117); Anion Gap 13 (12-20); Aspartate Amino Transferase 50 U/L (5-31); Blood Urea Nitrogen 27 mg/dL (9-16); Calcium 8.5 mg/dL (8.4-10.2); Carbon Dioxide 22 mmol/L (22-29); Chloride 108 mmol/L (96-108); Creatinine Clr Calc Pharmacy 26.0; Estimated Glomerular Filt Rate 32; Magnesium 2.0 mg/dL (1.6-2.6); Potassium 4.4 mmol/L (3.3-5.1); Sodium 139 mmol/L (135-145); Total Protein 6.1 g/dL (6.5-8.0)
[2024-12-27 17:17] LABS: Troponin-I High Sensitivity 7.0 ng/L (<3.5-17.0)
--- NOTE | 2024-12-27 17:57 | PC.NURSE ---
bladder scanned for 202mls, provider aware
--- NOTE | 2024-12-27 19:26 | PC.NURSE ---
pt is axox4 resting comfortably at this time, family is at bedside. vitals improved. pt denies pain at this time, had approx 10mL UO in purewick, denies urge to urinate at this time. ordered labs drawn. plan of care ongoing.
[2024-12-27 19:38] VITALS: BP 126/65; PULSE 89; RESP 18; TEMP 36.9; O2SAT 94
[2024-12-27 19:47] LABS: Alanine Aminotransferase 47 U/L (0-31); Albumin Level 3.6 g/dL (3.5-5.0); Alkaline Phosphatase 206 U/L (39-117); Anion Gap 14 (12-20); Aspartate Amino Transferase 46 U/L (5-31); Blood Urea Nitrogen 27 mg/dL (9-16); Calcium 8.5 mg/dL (8.4-10.2); Carbon Dioxide 21 mmol/L (22-29); Chloride 109 mmol/L (96-108); Creatinine Clr Calc Pharmacy 29.7; Estimated Glomerular Filt Rate 38; Potassium 4.4 mmol/L (3.3-5.1); Sodium 140 mmol/L (135-145); Total Protein 5.9 g/dL (6.5-8.0)
[2024-12-27 19:52] LABS: Troponin-I High Sensitivity 6.0 ng/L (<3.5-17.0)
[2024-12-28 01:39] VITALS: BP 132/64; PULSE 80; RESP 14; O2SAT 96
--- NOTE | 2024-12-28 01:40 | PC.NURSE ---
pt had approx 100mL UO. bladder scan showed 449mL. pt denies any discomfort. per Alejandro ROBB to hold off on interventions at this time and will continue to monitor urine output.
--- NOTE | 2024-12-28 03:35 | PC.NURSE ---
pt reports had some juice then started having cp/indigestion like sx. Alejandro ROBB made aware.
[2024-12-28] MEDS: Lidocaine HCl Viscous 2 % 15 ML SOLUTION PO (03:48)
[2024-12-28] MEDS: Magnesium Hydrox/Alum Hydrox 30 ML ORAL.SUSP PO (03:48)
[2024-12-28 06:22] VITALS: BP 125/67; PULSE 86; RESP 20; TEMP 36.4; O2SAT 94
[2024-12-28 06:41] LABS: Appearance Urine Cloudy; Glucose Urine UA Negative (Negative); PH 6.0 (5.0-9.0); Specific Gravity - Urine >= 1.030 (1.005-1.025); UMIC TRIGGER UACC YES
--- NOTE | 2024-12-28 07:30 | PC.NURSE ---
Care of Pt assumed at change of shift. request Pt be boosted in bed. while attempting to boost, bed sheets noted to be soiled in urine. Full bed linen change completed and new puriwck placed. Pt scheduled to transfer to [facility] at 11a today.
[2024-12-28 08:41] LABS: UACC Culture Trigger YES
--- NOTE | 2024-12-28 09:08 | MHC.CM.ED ---
Patient remains in ER. Will d/c to [facility] via BLS at 11am. [facility] verified to be booked. Med nec with chart. Patient, Loyda De La O RN and Karoline ROBB aware. Continue to monitor for d/c needs.
--- NOTE | 2024-12-28 10:31 | PC.NURSE ---
Call placed to Graciela Ambrosio @ [phone] to completed RN to dry transfer man report. Per the community service organization director, the RN is unable to come to the phone d/t med pass. Name and call back number provided for RN to reach out when available.
[2024-12-28 11:27] VITALS: BP 125/67; PULSE 86; RESP 20; TEMP 36.4; O2SAT 94
== END 2024-12-28 11:28 | disposition skilled nursing facility (03) ==
PROVIDERS: Physician Assistant Medical; Emergency Provider Emergency Medicine; PCP Nurse Practitioner Family
DX: S52.021A Displaced fracture of olecranon process without intraarticular extension of right ulna, initial encounter for closed fracture (principal); S82.002A Unspecified fracture of left patella, initial encounter for closed fracture; W18.30XA Fall on same level, unspecified, initial encounter; M25.562 Pain in left knee; M79.89 Other specified soft tissue disorders; Y93.01 Activity, walking, marching and hiking; Y92.481 Parking lot as the place of occurrence of the external cause; Y99.9 Unspecified external cause status; Z79.899 Other long term (current) drug therapy
CPT/HCPCS: 29125; 36415; 73070; 73564; 80048; 80053; 80076; 81001; 83735; 84484; 85025; 87086; 93005; 97162; 99285; J2405

== ENCOUNTER → 2024-12-25 16:20 | Outpatient (BNV) | payer MEDICARE, SELFPAY | PROVIDERS: Emergency Provider Emergency Medicine; PCP Nurse Practitioner Family; Visit Provider Radiology Diagnostic Radiology | DX: S82.002A Unspecified fracture of left patella, initial encounter for closed fracture (principal); S52.001A Unspecified fracture of upper end of right ulna, initial encounter for closed fracture; W19.XXXA Unspecified fall, initial encounter | CPT/HCPCS: 73070; 73564 ==

== ENCOUNTER → 2024-12-27 16:26 | Outpatient (BNV) | payer MEDICARE, SELFPAY | PROVIDERS: Emergency Provider Emergency Medicine; PCP Nurse Practitioner Family; Visit Provider Internal Medicine | DX: I45.2 Bifascicular block (principal) | CPT/HCPCS: 93010 ==

== ENCOUNTER 2025-01-04 09:47 | Outpatient (AMB) | payer MEDICARE, SELFPAY ==
--- OUTSIDE RECORDS SUMMARY | 2023-07-15 05:00 | XMS_ITS ---
Author Organization Kb Asher III, MD Address [address] [place] [address] Care Team Providers Care Mechanical Engineering Specialist Name Role Phone Mery GALO, Chavez Primary Care Provider Kb Cook Unavailable [phone] Allergies Allergen (clinical drug ingredient) Drug/Non Drug Allergy documented on EMR Reaction Allergy Type Onset Date Status amoxicillin / clavulanate Augmentin Unknown Drug Allergy Active amoxicillin Amoxicillin Rash Drug Allergy Act adalberto acetaminophen / oxycodone Percocet nausea/ hives Drug Allergy Active REASON FOR VISIT History of ovarian sarcoma Medications Medication SIG (Take, Route, Frequency, Duration) Notes Start Date End Date Status amLODIPine Besylate 5 MG (Prior Auth: Rx Ref#:[id number]) Oral Active Eliquis 5 MG as directed Orally Active Aspirin 81 81 MG 1 tablet Orally Once a day Active Vitamin D 1000 UNIT 1 tablet Orally Once a day Active Calcium 150 MG as directed Orally Active Acamprosate Calcium 333 MG 3 tablets Ora lly once aday Active Losartan Potassium 50 MG 1 tablet Orally Once a day Active Vitamin B 12 100 MCG as directed Orally once a day Active Social History Tobacco Use: Social History Observation Description Date Details (start date - stop date) Never Smoker NA - NA Tobacco Use/Smoking Question Answer Notes Patient is a nonsmoker Additional Findings: Tobacco Non-User Aggressive non-smoker Vital Signs Temperature 98.3 degrees Fahrenheit 07/15/19 24 Blood pressure systolic 138 mm Hg 07/15/19 24 Blood pressure diastolic 78 mm Hg 024 Heart Rate 79 /min 07/15/2023 Height 64 in 07/15/2023 Weight 144 lbs 07/15/2023 BMI 24.71 kg/m2 07/15/2023 Encounters Encounter Location Date Provider Diagnosis Kb Asher III, MD [address] [place] [address] DR [place]AL, YOL[place]DA [address] 07/15/2023 Kb Asher Ovarian sarcoma, 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 His free of disease. She will be seen once a year. 07/15/2023 Hiatal hernia (ICD-1 0 - K44.9) Her symptoms are mild and well controlled with kflj-nam-tsnxkmd medication. No change in her regimen is necessary. 07/15/2023 Asymptomatic postsurgical menopause (ICD-10 - E89.40) She remains under the care of culture room worker and primary care physician. 07/15/2023 Gastrointestinal hemorrhage, unspecified gastrointestinal hemorrhage type (ICD-10 - K92.2) She gives a history of episodic bleeding. Causes unclear and she is not aware of it. She has been referred to a surgeon at [facility] to evaluate this and also a possible small bowel obstruction episode. 07/15/2023 Acute deep vein thrombosis (DVT) of calf muscle vein of left lower extremity (ICD-10 - I82.462) She has had no further blood clots since 2019. There was no sign of such on today's examination. No change in her therapy was made. Plan Of Treatment Medication Medication Name Sig Start Date Stop Date Notes amLODIPine Besylate 5 MG (Prior Auth: Rx Ref#:[id number]) Oral Eliquis 5 MG as directed Orally Aspirin 81 81 MG 1 tablet Orally Once a day Vitamin D 1000 UNIT 1 tablet Orally Once a day Calcium 150 MG as directed Orally Acamprosate Calcium 333 MG 3 tablets Orally once aday Losartan Potassium 50 MG 1 tablet Orally Once a day Vitamin B 12 100 MCG as directed Orally once a day Next Appt Details Follow Up: 1 Year, Reason: O V no tests Provider Name:Kb Asher, 07/13/2025 10:00:00 AM, [address] [place] [address] DR, [place] [address], [place], [address], Progress Notes * Moriah ASHLEY ADOB:1939 (83 yo F)Acc No.[id number]:07/15/2023 Progress Notes Patient: Moriah Burt Provider: Florencio Asher MD :1940 A ge:83 Y S ex:Female Date:07/15/2023 Address:[address] [place], [place] [id number] Pcp:Chavez Ordonez MD Subjective: * Chief Complaints: * H istory of ovarian sarcoma * HPI: C OVID-19 Screening: 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 She is now 83 years old and asymptomatic. Her primary care provider is Vanessa Blackburn NP, at the [facility] in [place]. She is on an antibiotic for UTI. She has had no vaginal bleeding rectal bleeding pain, anorexia or weight loss. Questions H ave you experienced fever, chills, cough, sore throat, shortness of breath, difficulty breathing, muscle aches, loss of taste or smell? N o H ave you been exposed to the virus within the last 10 days? N o H ave you travelled internationally in the last 10 days? N o H ave you been exposed to COVID-19 in the past? Y es * ROS: G eneral/Constitutional: pain o nly normal aches and pains. C hills d enies.?Fatigue a dmits. F ever d enies. E NT: Decreased hearing i n both ears. R espiratory: Cough d enies. C ardiovascular: Chest pain with exertion d enies. D yspnea on exertion?denies. S hortness of breath d enies. G astrointestinal: Constipation o ccasional. D ecreased appetite d enies. D iarrhea d enies. H eartburn d enies. N ausea d enies. R ectal bleeding d enies. V omiting d enies. H ematology: bruising d enies. p etechiae d enies. S wollen glands n one have been noted. G enitourinary: Frequent urination a small amount. M usculoskeletal: Muscle aches d enies. P ainful joints d enies. S ciatica d enies. W eakness d enies. S kin: Itching d enies. R misty d enies. S kin lesion(s)?denies. N eurologic: Difficulty speaking d enies. D izziness d enies.?Headache d enies. L ow back pain d enies. P sychiatric: Depressed mood d enies. * Medical History: * Surgical History: t onsillectomy oophorectomy SBO treated conservatively * Hospitalization/Major Diagno stic Procedure: b lock of small bowel 03/2018 * Family History: F ather: 45 yrs, myocardial infarction,arthric rhematic cardiac problems. M other: 86 yrs, Parkinsons, alzheimer. 2 brother(s) , 1 sister(s) . 1 son(s) , 1 daughter(s) - healthy. . Her sister has arthritis and a brother has Crohn\'s disease. * Social History: T obacco Use: T obacco Use/Smoking P atient is a n onsmoker A dditional Findings: Tobacco Non-User A ggressive non-smoker S he was born in [place], [place]. She is to [place] for many years. * Medications: T akingVitamin B 12 100 MCG Lozenge as directed Orally once a dayAcamprosate Calcium 333 MG Tablet Delayed Release 3 tablets Orally once adayLosartan Potassium 50 MG Tablet 1 tablet Orally Once a dayamLODIPine Besylate 5 MG Tablet (Prior Auth: Rx Ref#:[id number]) Oral Eliquis 5 MG Tablet as directed Orally Aspirin 81 81 MG Tablet Delayed Release 1 tablet Orally Once a dayVitamin D 1000 UNIT Tablet 1 tablet Orally Once a dayCalcium 150 MG Tablet as directed Orally Taking Vitamin B 12 100 MCG Lozenge as directed Orally once a dayTaking Acamprosate Calcium 333 MG Tablet Delayed Release 3 tablets Orally once adayTaking Losartan Potassium 50 MG Tablet 1 tablet Orally Once a dayTaking amLODIPine Besylate 5 MG Tablet (Prior Auth: Rx Ref#:[id number]) Oral Taking Eliquis 5 MG Tablet as directed Orally Taking Aspirin 81 81 MG Tablet Delayed Release 1 tablet Orally Once a dayTaking Vitamin D 1000 UNIT Tablet 1 tablet Orally Once a dayTaking Calcium 150 MG Tablet as directed Orally DiscontinuedFosamax Plus D 70-2800 MG-UNIT Tablet 1 tablet Orally once a weekMedication List reviewed and reconciled with the patientDiscontinued Fosamax Plus D 70-2800 MG-UNIT Tablet 1 tablet Orally once a weekMedication List reviewed and reconciled with the patient * Allergies: P ercocet: nausea/ hives - Side EffectsAmoxicillin: RashAugmentinno[Allergies Verified] Objective: * Vitals: H t: 64, Wt:144, BMI:24.71, BP:138/78, HR:79, Temp:98.3, Wt-k.32. * Examination: G eneral Examination: GENERAL APPEARANCE: p leasant, well nourished, well developed, in no acute distress, calm and relaxed , elderly woman. HEAD: a traumatic, normocephalic. EYES: e alta, perrla, anicteric, conjugate. EARS: n ormal. NOSE: s eptum intact. ORAL CAVITY: n ormal, unremarkable. NECK/THYROID: n o jugular venous distention, no carotid bruit, thyroid normal. LYMPH NODES: n o enlarged lymph nodes,spleen normal. SKIN: n o suspicious lesions, anicteric. HEART: n o clicks, gallops, murmurs, or rubs, regular rhythm, S1, S2 normal, no s3, or vascular bruits. LUNGS: c lear to auscultation . BREASTS: n ot examined. ABDOMEN: b owel sounds normal, no ascites, no organomegaly, no mass. RECTAL EXAM: n ot examined. MUSCULOSKELETAL: e xtremities unremarkable, no clubbing, cyanosis or edema. PERIPHERAL PULSES: n ormal. NEUROLOGIC: a lert and oriented, cranial nerves 2-12 grossly intact, deep tendon reflexes 2+ symmetrical, motor strength normal upper and lower extremities, sensory exam intact. PSYCH: a lert, oriented. Assessment: * Assessment: 1. O varian sarcoma, unspecified laterality - C56.9 (Primary), There is no sign of relapse or new primary today and she seems healthy and well. His free of disease. She will be seen once a year. 2. H iatal hernia - K44.9, Her symptoms are mild and well controlled with crpq-gbm-nojjrah medication. No change in her regimen is necessary. 3 . 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 4 . G astrointestinal hemorrhage, unspecified gastrointestinal hemorrhage type - K92.2, She gives a history of episodic bleeding. Causes unclear and she is not aware of it. She has been referred to a surgeon at [facility] to evaluate this and also a possible small bowel obstruction episode. 5 . A cute deep vein thrombosis (DVT) of calf muscle vein of left lower extremity - I82.462, She has had no further blood clots since 2019. There was no sign of such on today's examination. No change in her therapy was made. Plan: * Treatment: 2. O thers Continue Aspirin 81 Tablet Delayed Release, 81 MG, 1 tablet, Orally, Once a day; C ontinue Vitamin D Tablet, 1000 UNIT, 1 tablet, Orally, Once a day; C ontinue Calcium Tablet, 150 MG, as directed, Orally. * Procedure Codes: * Follow Up: 1 Year (Reason: OV no tests ) * Images: * Sign off status: Completed true * Provider: Florencio Asher MD Date: 0 07/15/2023 Generated for Mario burton/Michael/Joceitting on: 0 01/04/2025 10:54 AM EDT History and Physical Notes * HPI (History of Present Illness) Category Sub-Category Detail Notes COVID-19 Screening Questions Have you had any new onset fever, chills, cough, congestion, sore throat, shortness of breath, muscle aches?: No Have you been exposed to the virus withi n the last 10 days?: No Have you travelled internationally in last 10 days?: No Have you been exposed to COVID-19 in the past?: Yes Examination Category Sub-Category Detail Notes General Examination GENERAL APPEARANCE: pleasant , well nourished, well developed, in no acute distress, calm and relaxed , elderly woman HEAD: atraumatic, normocep halic EYES: eomi, perrla, anicte ascencion, conjugate EARS: normal NOSE: septum intact NECK/THYROID: no jugular venous di stention, no carotid bruit, thyroid normal HEART: no clicks, gallops, murmurs, or rubs, regular rhythm, S1, S2 normal, no s3, or vascular bruits LUNGS: clear to auscultatio n ABDOMEN: bowel sounds normal, no ascites, no organomegaly, no mass NEUROLOGIC: alert and oriented, cranial nerves 2-12 grossly intact, deep tendon reflexes 2+ symmetrical, motor strength normal upper and lower extremities, sensory exam intact SKIN: no suspicious lesion s, anicteric PERIPHERAL PULSES: normal BREASTS: not examined MUSCULOSKELETAL: extremities unremark able, no clubbing, cyanosis or edema LYMPH NODES: no enlarged lymph no hermes,spleen normal RECTAL EXAM: not examined PSYCH: alert, oriented ORAL CAVITY: normal, unremarkable
--- OUTSIDE RECORDS SUMMARY | 2024-07-20 05:30 | XMS_ITS ---
Author Organization Kb Asher III, MD Address [address] [place] [address] Care Team Providers Care White Metal Caster Name Role Phone Mery GALO, Chavez Primary Care Provider Kb Cook Unavailable [phone] Allergies Allergen (clinical drug ingredient) Drug/Non Drug [...] amLODIPine Besylate 5 MG (Prior Auth: Rx Ref#:[id number]) Oral Active Eliquis 5 MG as directed Orally Active Social History Tobacco Use: Social History Observation Description Date Details (start date - stop date) Never Smoker NA - NA Tobacco Use/Smoking Question Answer Notes Patient is a nonsmoker Additional Findings: Tobacco Non-User Aggressive non-smoker Problems Problem Type SNOMED Code ICD Code Onset Dates Problem Status W/U Status Risk Notes Problem 5983060 Former smoker (Z87.891) Active confirmed She has [...] Date Provider Diagnosis Kb Asher III, MD [address] [place] [address] [address] VELIZSARAH, YOLANDA [address] 07/20/2024 Kb Asher Ovarian sarcoma, unspecified laterality [...] symptoms are mild and well controlled with ofro-svh-zyjcmnf medication. No change in her regimen is necessary. 07/20/2024 Ileus of unspecified type (ICD-10 - K56.7) 07/20/2024 Asymptomatic postsurgical menopause (ICD-10 - E89.40) She remains under the care of grain wafer machine operator and primary care physician. 07/20/2024 Gastrointestinal hemorrhage, unspecified gastrointestinal hemorrhage type (ICD-10 - K92.2) She gives a history of episodic bleeding. Causes unclear and she is not aware of it. She has been referred to a surgeon at [facility] to evaluate this and also a [...] amLODIPine Besylate 5 MG (Prior Auth: Rx Ref#:[id number]) Oral Eliquis 5 MG as directed Orally Next Appt Details Follow Up: 1 Year, Reason: o v Provider Name:Kb Asher, 07/13/2025 10:00:00 AM, [address] [place] [address] GISELA [place]ADO, [place], [address], Progress Notes * Moriah ASHLEY ADOB:1939 (84 yo F)Acc No.[id number]:07/20/2024 Progress Notes Patient: Moriah FISHER Provider: Florencio Asher MD :1940 A ge:84 Y S ex:Female Date:07/20/2024 Address:[address] [place], [place] [id number] Pcp:Chavez Ordonez MD Subjective: * Chief Complaints: * H istory of ovarian sarcomaHistory of DVTHistory of gastrointestinal hemorrhage * HPI: C OVID-19 Screening: 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 She was treated with resection followed by adjuvant radiation therapy. He has been compliant with follow-up by DIETITIAN CONSULTANT. She has had no new complaints since [...] ggressive non-smoker S he was born in [place], [place]. She is to Chavez for many years. * Medications: T akingVitamin B 12 100 MCG Lozenge as directed Orally once a day Acamprosate Calcium 333 MG Tablet Delayed Release 3 tablets Orally once aday Losartan Potassium 50 MG Tablet 1 tablet Orally Once a day amLODIPine Besylate 5 MG Tablet (Prior Auth: Rx Ref#:[id number]) Oral Eliquis 5 MG Tablet as directed [...] Besylate 5 MG Tablet (Prior Auth: Rx Ref#:[id number]) Oral Taking Eliquis 5 MG Tablet as [...] symptoms are mild and well controlled with xpde-wnp-lsetreo medication. No change in her regimen is necessary. 3 . I leus of unspecified type - K56.7 4 . 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 5 . G astrointestinal hemorrhage, unspecified gastrointestinal hemorrhage type - K92.2 N otes :She gives a history of episodic bleeding. Causes unclear and she is not aware of it. She has been referred to a surgeon at [facility] to evaluate this and also a [...] 07/20/2024 Generated for Mario burton/Michael/Joceitting on: 0 01/04/2025 [...]
--- NOTE | 2025-01-04 10:20 | A.OFFVIS_ITS ---
Vital Signs 01/04/25 10:24 Height 5 ft 5 in Weight 144 lb BMI 24.0 Intake Visit Reasons: B/L RT elbow olecranon fx and LT knee patella fx Intake Note: Moriah is an 84 year old female who presents today as a new patient for an ER follow up of right olecranon fracture and left patella fracture, DOI 12/25/24. Patient presented to [facility] by ambulance status post fall while she was at [facility]. She was placed in a sugar tong splint and a knee immobilizer. Patient reports she is doing well, states not really any pain or discomfort. She complains of bruising on her arm. States her swelling has improved. She has been using Tylenol Extra Strength as needed for her discomfort. Allergies No Known Allergies Allergy (Verified 01/04/25 10:35) Medication List - Last Reconciled 01/04/25 by Anjana Austin PA-C amlodipine 5 mg PO DAILY denosumab (Prolia) 60 mg subcut [id number] famotidine 40 mg PO DAILY losartan 50 mg PO DAILY mirtazapine 15 mg PO BEDTIME HPI HPI B/L RT elbow olecranon fx and LT knee patella fx: Details: 84 yo female presents to the office today for an injury she sustained to her right elbow and left knee after sustaining a fall 12/25/24 . She [facility] and may have caught her foot and fell. She does not use a walker or cane at baseline. She was brought to ED via EMS. X-rays obtained in the emergency department were significant for a displaced right olecranon fracture and a nondisplaced left patellar fracture. She was placed in an immobilizer for the left knee and a splint for the right elbow and referred to our office for ortho eval. Patient lives at home with her . She does not use a walker or a cane at baseline and she is independent with her ADLs. No Significant cardiopulmonary disease. [facility] Medical History (Updated 01/04/25 @ 11:12 by Anjana Austin PA-C) Hypertension Surgical History History of gastric surgery Social History (Updated 01/04/25 @ 10:24 by KAMAR Avalos) Patient Tobacco Use Status: Never used Tobacco Current occupational status: retired Review of Systems Const All systems reviewed & are unremarkable except as noted in HPI and below Physical Exam Vital Signs: BMI result Body Mass Index 24.0 Const General: cooperative, healthy appearing, comfortable, no acute distress, well developed and alert Orientation/consciousness: patient oriented x3 HEENT Head: Yes normal to inspection, Yes normocephalic and Yes atraumatic Eyes General: appearance normal, both eyes and all related structures Neck Neck: Yes normal visual inspection and Yes no lymphadenopathy Resp Effort & Inspection: normal respiratory effort and able to speak in complete sentences Cardio Rate: regular rate Peripheral pulses: Peripheral pulses 2+ throughout GI Inspection: Yes normal to inspection Palpation (GI): Soft to palpation Skin General skin exam: no rashes or lesions noted Neuro General: patient oriented x3 Extrem Other: Right elbow skin is intact there is no open wounds or abrasions. She does have mild swelling through the elbow with some ecchymosis. She is neurovascularly intact. Left knee skin is intact. She has mild tenderness along the patella with no abnormalities proximal or distal to the patella. Calf is supple and nontender neurovascularly intact. Psych Appearance: grossly normal Mental Status: mental status grossly normal Office Procedures Casting/Splints 59185-Kuotvbn Splint Application Procedure code (CPT) selection complete Results Reviewed Results Reviewed: X-rays of the right elbow obtained in the office today show a displaced olecranon fracture X-rays of the left knee obtained in the office today show a nondisplaced patellar fracture Assessment & Plan Assessment & Plan (1) Closed olecranon fracture: Code(s): S52.023A - Displaced fracture of olecranon process without intraarticular extension of unspecified ulna, initial encounter for closed fracture Category: Medical Qualifiers: Encounter type: initial encounter Laterality: right Qualified Code(s): S52.021A - Displaced fracture of olecranon process without intraarticular extension of right ulna, initial encounter for closed fracture Plan: I explained to the patient and her family the extent of his injury which would benefit from surgical intervention for optimal functioning. The patient does understand nonsurgical intervention would result in significantly limited function of the right elbow and also risk of joint collapse. Given the patient's activity level and he is independent with ADL's, it would be recommended to pursue surgical intervention. We discussed the procedure in detail along with the risks benefits and alternatives. Risks including but not limited to infection, injury to surrounding nerves and tissue and bone, small and large vessels, stiffness,need for further surgery, DVT/PE along with intraoperative complications including but not limited to . We discussed postoperative recovery which includes Home with VNA vs STR. I explained typical recovery is often a splint immediately postop followed by some gentle range of motion and caution with lifting for 6 weeks. Overall recovery could be anywhere from 3-6 months. The patient does express understanding and would like to proceed with Operative fixation of the right elbow with Dr. Gutierrez. The patient will be booked accordingly. She was placed in a posterior splint of her right elbow prior to discharge today. (2) Patellar fracture: Code(s): S82.009A - Unspecified fracture of unspecified patella, initial encounter for closed fracture Category: Medical Qualifiers: Encounter type: initial encounter Fracture alignment: nondisplaced Fracture morphology: transverse Fracture type: closed Laterality: left Qualified Code(s): S82.035A - Nondisplaced transverse fracture of left patella, initial encounter for closed fracture Plan: I explained to the patient and her family the patella fracture is nondisplaced therefore if we keep it straight and avoid any type of flexion or stress on the patella we could hopefully maintain its alignment and avoid surgery. She is currently in a knee immobilizer which she will continue to use. She can apply weight on her left lower extremity, partial weight-bearing and increase in weightbearing as tolerated. She should use a verito walker as to not put any weight on the right upper extremity. She is currently in his short-term rehab and we will need to be instructed on how to begin weight-bearing and using the walker prior to discharge. I would like to see her back in 2 weeks for her left knee so we can re-x-ray and see if she is able to progress with range of motion. Patient is content with this plan and will see me back as discussed. Orders: Orders XR elbow RT min 3V Today M25.521 - Pain in right elbow XR knee LT 2V Today M25.562 - Pain in left knee Coding Level of Care Code New Pt Level 4 (49249) Complex EM visit Add On G2211 Diagnoses Closed olecranon fracture S52.021A Encounter type: initial encounter Laterality: right Patellar fracture S82.035A Encounter type: initial encounter Fracture alignment: nondisplaced Fracture morphology: transverse Fracture type: closed Laterality: left CPT Codes Splint - CPT: 24348-Hycgwfd Splint Application ([id number])
[2025-01-04 10:24] VITALS: BMI 24.0
--- OUTSIDE RECORDS SUMMARY | 2025-01-04 10:55 | XMS_ITS | Patient Health Record ---
Author Organization Kb Asher III, MD Address [address] [place] [address] Care Team Providers Care Robotic Weld Technician Name Role Phone Mery GALO, Chavez Primary Care Provider Kb Cook Unavailable [phone] Allergies Allergen (clinical drug ingredient) Drug/Non Drug Allergy documented on EMR Reaction Allergy Type Onset Date Status acetaminophen / oxycodone Percocet nausea/ hives Drug Allergy Active amoxicillin / clavulanate Augmentin Unknown Drug Allergy Active amoxicillin Amoxicillin Rash Drug Allergy Act adablerto Reason For Referral No Information Medications Medication SIG (Take, Route, Frequency, Duration) Notes Start Date End Date Status Aspirin 81 81 MG 1 tablet Orally Once a day Active Vitamin D 1000 UNIT 1 tablet Orally Once a day Active amLODIPine Besylate 5 MG (Prior Auth: Rx Ref#:[id number]) Oral Active Eliquis 5 MG as directed Orally Active Acamprosate Calcium 333 MG 3 tablets Ora lly once aday Active Losartan Potassium 50 MG 1 tablet Orally Once a day Active Vitamin B 12 100 MCG as directed Orally once a day Active Calcium 150 MG as directed Orally Active Immunizations Vaccine Route Administration Date Status Comme nts Influenza Unknown 02/01/2014 Administered Pneumococcal Unknown 02/13/2014 Administered Social History Tobacco Use: Social History Observation Description Date Details (start date - stop date) Never Smoker NA - NA Tobacco Use/Smoking Question Answer Notes Patient is a nonsmoker Additional Findings: Tobacco Non-User Aggressive non-smoker Alcohol Screen Question Answer Notes Did you have a drink containing alcohol in the p ast year? 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 Problem 80326859 Hiatal hernia (K44.9) Active confirmed Her symptoms are mild and well controlled with ycfw-xkn-rdzg ter medication. No change in her regimen is necessary. 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 His free of disease. She will be seen once a year. 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 Problem 63134991 Gastrointestinal hemorrhage, unspecified gastrointestinal hemorrhage type (K92.2) Active confirmed She gives a history of episodic bleeding. Causes unclear and she is not aware of it. She has been referred to a surgeon at [facility] to evaluate this and also a possible small bowel obstruction episode. 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 There was no sign of such on today's examination. No change in her therapy was made. Vital Signs Heart Rate 78 /min 07/20/2024 Temperature 97.7 degrees Fahrenheit 07/20/2024 Blood pressure diastolic 78 mm Hg 07/20/2024 Height 64 in 07/20/2024 Blood pressure systolic 138 mm Hg 07/20/2024 Weight 149 lbs 07/20/2024 BMI 25.57 kg/m2 07/20/2024 Encounters Encounter Location Date Provider Diagnosis Kb Asher III, MD [address] [place] [address] DR [place], YOLANDA [address] 07/20/2024 Kb Asher Ovarian sarcoma, unspecified laterality C56.9 ; Hiatal hernia K44.9 ; Ileus of unspecified type K56.7 ; Asymptomatic postsurgical menopause E89.40 ; Gastrointestinal hemorrhage, unspecified gastrointestinal hemorrhage type K92.2 and Former smoker Z87.891 Assessments Encounter Date Diagnosis (ICD Code) Assessment Notes Treat ment Notes Treatment Clinical Notes 07/20/2024 Hiatal hernia (ICD-1 0 - K44.9) Her symptoms are mild and well controlled with ndqo-akm-msiyjtm medication. No change in her regimen is necessary. 07/20/2024 Ovarian sarcoma, unspecified laterality (ICD-10 - 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 His free of disease. She will be seen once a year. 07/20/2024 Ileus of unspecified type (ICD-10 - K56.7) 07/20/2024 Asymptomatic postsurgical menopause (ICD-10 - E89.40) She remains under the care of chemistry intern and primary care physician. 07/20/2024 Gastrointestinal hemorrhage, unspecified gastrointestinal hemorrhage type (ICD-10 - K92.2) She gives a history of episodic bleeding. Causes unclear and she is not aware of it. She has been referred to a surgeon at [facility] to evaluate this and also a possible small bowel obstruction episode. 07/20/2024 Former smoker (ICD-1 0 - Z87.891) She has a plan to prevent relapse in times of stress and illness. Plan Of Treatment Next Appt Details Provider Name:Kb Asher, 07/13/2025 10:00:00 AM, [address] [place] [address] GISELA CORONADO, [place], [address], Insurance Providers Payer Name Payer Address Payer Phone Subscriber Number Group Number Insured Name Patient Relationship to Insured Coverage Start Date Coverage End Date [facility] [address] [place], [place] [id number] [phone] [id number] Moriah Zacarias Self - patient is the insured Medical (General) History Medical History History ICD Code [id number] menopause between ages 52 and 54 In 1975 she was hospitalized for a sheba ite obtained in PDV. 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
--- OUTSIDE RECORDS SUMMARY | 2025-01-04 10:55 | XMS_ITS | Encounter Summary ---
Author Organization [facility] Address [address] [address] Phone Care Team Providers Care Traffic Sign Erection Supervisor Name Role Phone Pcp, Unknown Primary Care Provider Elaine Manning NP Primary Care Provider [phone] Reason for Referral * Physical Therapy (Routine) - Closed Specialty Diagnoses / Procedures Referred By Contariana t Referred To Contact Physical Therapy Diagnoses Encounter for rehabilitation Shay Baker MD [address] [place] [address] Phone: tel: fax: [email or web address] [place] [address] Phone: tel: Referral ID Status Reason Start Date Expiration Date Visits Re quested Visits Authorized [id number] Closed 08/06/2023 2024 99 99 Encounter Details Date Type Department Care Team (Latest Contact Info) Description 08/06/2023 Transcribe Orders [facility] [address] [place] [address] Shay Baker MD [address] [place] [address] [email or web address] Encounter for rehabilitation (Primary Dx) Social History Tobacco Use Types Packs/Day Years Used Date Smoking Tobacco: Never Assessed Education Answer Date Recorded Are you interested in more education? Not on gregory e 08/29/2022 Are you concerned about learning? Not on file 08/29/2022 No 08/29/2022 No 08/29/2022 Digital Access Answer Date Recorded No 09/30/2022 No 09/30/2022 Reliable internet access at home? Not on file 09/30/2022 Device with a working camera? Not on file Comments Unknown Sex and Gender Information Value Date Recorded Sex Assigned at Not on file Legal Sex Female 9:42 AM EDT Gender Identity Not on file Sexual Orientation Not on file documented as of this encounter Plan of Treatment Not on file documented as of this encounter Procedures Procedure Name Priority Date/Time Associated Diagnosis Comments AMB REFERRAL TO [facility] PHYSICAL THERAPY Routine 10/28/2023 10:13 AM EDT Encounter for rehabilitation documented in this encounter Results * Ambulatory referral to [facility] Physical Therapy (10/28/2023 10:13 AM EDT) Other us Shay Baker MD AMB [facility] REFERRALS Final R esult documented in this encounter Visit Diagnoses Diagnosis Encounter for rehabilitation- Primary documented in this encounter Care Teams Traffic Sign Erection Supervisor Relationship Specialty Start Date End Date Pcp, Unknown PCP - General 08/04/23 11/01/23 Elaine Blackburn NP [address] [place] [address] PCP - General Nurse Practitioner 11/02/23 documented as of this encounter Additional Source Comments The information contained in this document represents components of the legal health record. It is not the complete legal health record.[facility]
--- OUTSIDE RECORDS SUMMARY | 2025-01-04 10:55 | XMS_ITS | Clinical Summary ---
Author Organization [facility] Address [address] [place] [address] Phone Care Team Providers Care Quality Assurance Supervisor Body Name Role Phone Elaine Blackburn NP Primary Care Provider [phone] Allergies No known active allergies Medications No known medications Active Problems No known active problems Encounters Date Type Department Care Team Description 12/22/2024 Ancillary Orders [facility],Outside Imaging [address] [place] [address] Nirav Gastelum MD 12/20/2024 12:00 PM EDT Office Visit [facility] [address] [place] [address] Alvin Tyson, PAMoiseC Primary osteoarthritis of left knee (Primary Dx) 12/20/2024 Orders Only [facility] [address] [place] [address] Provider, MD Lara 10/18/2024 - 10/18/2024 11:59 PM EDT [facility] [address] [place] [address] Unknown, MD Nirav Discharge Disposition: Home or Self Care from Last 3 Months Social History Tobacco Use Types Packs/Day Years [...] on file Sexual Orientation Not on file Plan of Treatment Health Maintenance Due Date Last Done Comments Adult Td,Tdap Booster 1938 DEPRESSION SCREENING 1950 PNEUMOCOCCAL VACCINES (50+ years) (1 of 1 - PCV) 1988 ZOSTER VACCINES (1 of 2) 1988 OSTEOPOROSIS SCREENING INITI AL (ONE-TIME) 2003 RSV VACCINE (1 - 1-dose 75+ series) 2013 COVID-19 VACCINE (2023-2 5 season) 2024 06/25/2020, 06/04/2020 INFLUENZA VACCINE (#1) 2024 12/28/2019 HEPATITIS A VACCINES Aged Out 07/12/2020 No long er eligible based on patient's age to complete this topic HIB VACCINES Aged Out No longer eligi ble based on patient's age to complete this topic MENINGOCOCCAL VACCINES (ACWY) Aged Out No longer eligible based on patient's age to complete this topic MENINGOCOCCAL VACCINES (B) Aged Out N o longer eligible based on patient's age to complete this topic Medical Devices Not on file Procedures Procedure Name Priority Date/Time Associated Diagnosis Comments OUTSIDE IMAGING Routine 12/20/2024 4:10 PM EDT XR LOWER EXTREMITY OUTSIDE (NO INTERPRETATION) Routine 10/18/2024 12:00 AM EDT from Last 3 Months Results * Outside Imaging Report Only (12/20/2024 4:10 PM EDT) us Historical Provider MD LOPEZ XR CHEST Final Res ult * XR Lower Extremity Outside (No Interpretation) (10/18/2024 12:00 AM EDT) Narrative SYSTEMGENERATED, DOCUMENTATION - 12/22/2024 7:53 AM EDT This study is for PACS storage only and not for interpretation. us Unknown Unknown MD LOPEZ OUTSIDE IMAGING W/OUT INT ERPRETATION Final Result from Last [address] [place] [address] MEDICARE PPO [address] [place] [address] [place] [address] MED[address]ARE PPO [address] [place] [address] [place] [address] [address]PO BLUE [place] [address] [place] [address] MEDICARE PPO BLUE REPLACEMENT Care Teams Quality Assurance Supervisor Body Relationship Specialty Start Date End Date Elaine Blackburn NP [address] [place] [address] PCP - General Nurse Practitioner 11/02/23 Additional Source Comments The information contained in this document represents components of the legal health record. It is not the complete legal health record.[facility]
--- OUTSIDE RECORDS SUMMARY | 2025-01-04 10:55 | XMS_ITS | Encounter Summary ---
Author Organization [facility] Address [address] [place] [address] Phone Care Team Providers Care Carbon Brushes Assembler Name Role Phone BereElaine NP Primary Care Provider [phone] Encounter Details Date Type Department Care Team (Late st Contact Info) Description 12/20/2024 Orders Only [facility] Orthopedics & Sports Medicine [address] [place] [address] Provider, MD Lara [address] [place] [address] Social History Tobacco Use Types Packs/Day Years [...] OUTSIDE IMAGING Routine 12/20/2024 4:10 PM EDT documented in this encounter Results * Outside Imaging Report Only (12/20/2024 4:10 PM EDT) Historical Provider MD IMG XR CHEST Final Res ult documented in this encounter Visit Diagnoses Not on filedocumented in this encounter Care Teams Carbon Brushes Assembler Relationship Specialty Start Date End Date Bere, CORRIE Henry [address] [place] [address] PCP - General Nurse Practitioner 11/02/23 documented as of this encounter Additional Source Comments The information contained in this document represents components of the legal health record. It is not the complete legal health record.[facility]
== END 2025-01-04 12:04 | disposition home or self-care (01) ==
LOC: HO.HOS 09:48
PROVIDERS: PCP Nurse Practitioner Family; Visit Provider Physician Assistant
DX: S52.021A Displaced fracture of olecranon process without intraarticular extension of right ulna, initial encounter for closed fracture (principal); S82.035A Nondisplaced transverse fracture of left patella, initial encounter for closed fracture
CPT/HCPCS: 29125; 99204

== ENCOUNTER → 2025-01-04 09:50 | Outpatient (BNV) | payer MEDICARE, SELFPAY | PROVIDERS: Visit Provider Radiology Diagnostic Radiology | DX: M25.521 Pain in right elbow (principal); S52.031D Displaced fracture of olecranon process with intraarticular extension of right ulna, subsequent encounter for closed fracture with routine healing; M25.562 Pain in left knee; M25.462 Effusion, left knee; S82.045D Nondisplaced comminuted fracture of left patella, subsequent encounter for closed fracture with routine healing | CPT/HCPCS: 73080; 73560 ==

== ENCOUNTER 2025-01-04 15:02 | Outpatient (REF) | payer MEDICARE, SELFPAY ==
--- NOTE | ~2025-01-04 | XR_ITS ---
EXAMINATION: XR KNEE, LEFT CLINICAL INFORMATION: M25.562 - Pain in left knee COMPARISON: December 25, 2024 TECHNIQUE: AP and lateral views of the left knee. FINDINGS: There is no joint effusion. Again seen is an obliquely oriented fracture through patella extends from the central anterior surface to the inferior margin of the articular surface. Joint effusion is resolved. There is mild narrowing of the medial greater than lateral joint spaces. Medial intercondylar tubercle is peaked. XR/XR knee LT 2V IMPRESSION: Stable nondisplaced intra-articular fracture of the inferior pole patella. Result joint effusion. Mild degenerative change. Electronically signed by: Myron Baugh MD 01/04/2025 10:59 AM EDT
--- NOTE | ~2025-01-04 | XR_ITS ---
EXAMINATION: XR ELBOW, RIGHT CLINICAL INFORMATION: M25.521 - Pain in right elbow , follow-up intra-articular fracture COMPARISON: December 25, 2024 TECHNIQUE: AP, lateral, and oblique views of the right elbow. FINDINGS: Since prior examination, splint has been placed along the dorsal region of the elbow. Again seen is an intra-articular fracture through the base of the olecranon. The olecranon fragment is distracted by approximately 2 cm which is similar to the prior. The olecranon fragment is fractured into the anterior and posterior fragment. No other abnormality is evident. XR/XR elbow RT min 3V IMPRESSION: Distracted intra-articular olecranon fracture. Stable. Electronically signed by: Myron Baugh MD 01/04/2025 10:57 AM EDT
== END 2025-01-04 15:03 | disposition home or self-care (01) ==
LOC: HO.HOSX 15:02
PROVIDERS: Visit Provider Physician Assistant
DX: S52.021A Displaced fracture of olecranon process without intraarticular extension of right ulna, initial encounter for closed fracture (principal); S82.035A Nondisplaced transverse fracture of left patella, initial encounter for closed fracture; X58.XXXA Exposure to other specified factors, initial encounter
CPT/HCPCS: 29125; 73080; 73560; 99202

== ENCOUNTER → 2025-01-05 13:00 | Outpatient (REF) | payer MEDICARE, SELFPAY ==
--- OUTSIDE RECORDS SUMMARY | 2023-07-15 05:00 | XMS_ITS ---
Author Organization Kb Asher III, MD Address [address] [place] [address] Care Team Providers Care Electroplating Sales Representative Name Role Phone Mery GALO, Chavez Primary Care Provider Kb Cook Unavailable [phone] Allergies Allergen (clinical drug ingredient) Drug/Non Drug [...] amLODIPine Besylate 5 MG (Prior Auth: Rx Ref#:[id number]) Oral Active Eliquis 5 MG as directed [...] Date Provider Diagnosis Kb Asher III, MD [address] [place] [address] [address] VILLARREAL, YOLANDA [address] 07/15/2023 Kb Asher Ovarian sarcoma, unspecified laterality [...] symptoms are mild and well controlled with munc-rqm-glypwir medication. No change in her regimen is necessary. 07/15/2023 Asymptomatic postsurgical menopause (ICD-10 - E89.40) She remains under the care of soil technician and primary care physician. 07/15/2023 Gastrointestinal hemorrhage, unspecified gastrointestinal hemorrhage type (ICD-10 - K92.2) She gives a history of episodic bleeding. Causes unclear and she is not aware of it. She has been referred to a surgeon at [facility] to evaluate this and also a possible [...] amLODIPine Besylate 5 MG (Prior Auth: Rx Ref#:[id number]) Oral Eliquis 5 MG as directed Orally [...] tests Provider Name:Kb Asher, 07/13/2025 10:00:00 AM, [address] [place] [address] DR, [place] [address], [place], [address], Progress Notes * Moriah ASHLEY ADOB:1939 (83 yo F)Acc No.[id number]:07/15/2023 Progress Notes Patient: Moriah Burt Provider: Florencio Asher MD :1940 A ge:83 Y S ex:Female Date:07/15/2023 Address:[address] [place], [place] [id number] Pcp:Chavez Ordonez MD Subjective: * Chief Complaints: * H istory of ovarian sarcoma * HPI: C OVID-19 Screening: 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 She is now 83 years old and asymptomatic. Her primary care provider is Vanessa Blackburn NP, at the [facility] [place]. She is on an antibiotic for UTI. [...] ggressive non-smoker S he was born in [place], [place]. She is to [place] for many years. * Medications: T akingVitamin B 12 100 MCG Lozenge as directed Orally once a dayAcamprosate Calcium 333 MG Tablet Delayed Release 3 tablets Orally once adayLosartan Potassium 50 MG Tablet 1 tablet Orally Once a dayamLODIPine Besylate 5 MG Tablet (Prior Auth: Rx Ref#:[id number]) Oral Eliquis 5 MG Tablet as directed [...] Besylate 5 MG Tablet (Prior Auth: Rx Ref#:[id number]) Oral Taking Eliquis 5 MG Tablet as [...] symptoms are mild and well controlled with vftq-hah-byikrjo medication. No change in her regimen is necessary. 3 . 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 4 . G astrointestinal hemorrhage, unspecified gastrointestinal hemorrhage type - K92.2, She gives a history of episodic bleeding. Causes unclear and she is not aware of it. She has been referred to a surgeon at [facility] to evaluate this and also a possible [...] 07/15/2023 Generated for Mario burton/Michael/Joceitting on: 0 01/05/2025 02:15 PM EDT History and Physical Notes * HPI [...]
--- OUTSIDE RECORDS SUMMARY | 2024-07-20 05:30 | XMS_ITS ---
Author Organization Kb Asher III, MD Address [address] [place] [address] Care Team Providers Care Promotions Firm Accounts Manager Name Role Phone Mery GALO, Chavez Primary Care Provider Kb Cook Unavailable [phone] Allergies Allergen (clinical drug ingredient) Drug/Non Drug [...] amLODIPine Besylate 5 MG (Prior Auth: Rx Ref#:[id number]) Oral Active Eliquis 5 MG as directed Orally Active Social History Tobacco Use: Social History Observation Description Date Details (start date - stop date) Never Smoker NA - NA Tobacco Use/Smoking Question Answer Notes Patient is a nonsmoker Additional Findings: Tobacco Non-User Aggressive non-smoker Problems Problem Type SNOMED Code ICD Code Onset Dates Problem Status W/U Status Risk Notes Problem 4397015 Former smoker (Z87.891) Active confirmed She has [...] Date Provider Diagnosis Kb Asher III, MD [address] [place] [address] DR VELIZSARAH, YOLANDA [address] 07/20/2024 Kb Asher Ovarian sarcoma, unspecified laterality [...] symptoms are mild and well controlled with moaw-eas-ctspcfn medication. No change in her regimen is necessary. 07/20/2024 Ileus of unspecified type (ICD-10 - K56.7) 07/20/2024 Asymptomatic postsurgical menopause (ICD-10 - E89.40) She remains under the care of home health assistant and primary care physician. 07/20/2024 Gastrointestinal hemorrhage, unspecified gastrointestinal hemorrhage type (ICD-10 - K92.2) She gives a history of episodic bleeding. Causes unclear and she is not aware of it. She has been referred to a surgeon at [facility] to evaluate this and also a [...] amLODIPine Besylate 5 MG (Prior Auth: Rx Ref#:[id number]) Oral Eliquis 5 MG as directed Orally Next Appt Details Follow Up: 1 Year, Reason: o v Provider Name:Kb Asher, 07/13/2025 10:00:00 AM, [address] [place] [address] GISELA [place], [place], [address], Progress Notes * Moriah ASHLEY ADOB:1939 (84 yo F)Acc No.[id number]:07/20/2024 Progress Notes Patient: Moriah FISHER Provider: Florencio Asher MD :1940 A ge:84 Y S ex:Female Date:07/20/2024 Address:[address] [place], [place] [id number] Pcp:Chavez Ordonez MD Subjective: * Chief Complaints: * H istory of ovarian sarcomaHistory of DVTHistory of gastrointestinal hemorrhage * HPI: C OVID-19 Screening: 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 She was treated with resection followed by adjuvant radiation therapy. He has been compliant with follow-up by WAREHOUSE FOREMAN. She has had no new complaints since [...] ggressive non-smoker S he was born in [place], [place]. She is to Chavez for many years. * Medications: T akingVitamin B 12 100 MCG Lozenge as directed Orally once a day Acamprosate Calcium 333 MG Tablet Delayed Release 3 tablets Orally once aday Losartan Potassium 50 MG Tablet 1 tablet Orally Once a day amLODIPine Besylate 5 MG Tablet (Prior Auth: Rx Ref#:[id number]) Oral Eliquis 5 MG Tablet as directed [...] Besylate 5 MG Tablet (Prior Auth: Rx Ref#:[id number]) Oral Taking Eliquis 5 MG Tablet as [...] symptoms are mild and well controlled with gals-lcl-flovvxi medication. No change in her regimen is necessary. 3 . I leus of unspecified type - K56.7 4 . 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 5 . G astrointestinal hemorrhage, unspecified gastrointestinal hemorrhage type - K92.2 N otes :She gives a history of episodic bleeding. Causes unclear and she is not aware of it. She has been referred to a surgeon at [facility] to evaluate this and also a [...] 0 07/20/2024 Generated for Mario burton/Michael/Joceitting on: 0 01/05/2025 [...]
--- NOTE | 2025-01-05 13:03 | CA_ITS ---
Transthoracic Echocardiogram Patient (Last, First, Middle): Moriah Zacarias A Gender: F Date of : 1940 Age: 84 Procedure Date: 01/05/2025 Procedure Type: Transthoracic Echocardiogram Location: OP Height: 165.1 cm Weight: 64.41 kg BSA: 1.71 m2 Heart Rate: bpm BP: 140 / 82 mmHg Teller Coordinator: TO Referring MD: Anjana Austin PA-C Slot Machine Key Person: Norberto Nelson MD Symptoms: Z01.818 - Encounter for other preprocedural examination Study Quality: Technically Difficult ECG Rhythm: Sinus Conclusions: - 1. Normal LV ejection fraction of 65-70% with mild asymmetric septal hypertrophy with dynamic LVOT obstruction of mild degree 2. Normal cardiac valvular Dopplers 3. Normal RV systolic pressure 4. No gross pericardial effusion Findings Procedure Information Contrast agent, definity, is being given per protocol without apparent complications. Left Ventricle Normal left ventricular size, thickness, and systolic function. The visually estimated ejection fraction is between 65-70%. The left ventricular outflow tract gradient at rest is 7 mmHg. Spectral Doppler is indicative of an impaired relaxation filling pattern. E/E prime ratio is between 8 and 15 consistent with indeterminate filling pressures. There is mild septal asymmetric hypertrophy. that has mild increasing gradient across the LVOT with Valsalva maneuver to a peak of 33 mm Hg consistent with dynamic obstruction Right Ventricle Normal right ventricular cavity size and systolic function. Atria Both atria are normal in size. Interatrial shunt cannot be excluded. Aortic Valve There is mild calcification of the aortic valve. There is no aortic valve stenosis. There is no aortic valve regurgitation. Mitral Valve There is mild anterior and posterior mitral leaflet thickening. There is mild mitral annular calcification. There is trace mitral valve regurgitation. There is no mitral valve stenosis. Pulmonic Valve The pulmonic valve was not well visualized. Tricuspid Valve Likely normal tricuspid valve structure and function. There is mild tricuspid valve regurgitation. The right ventricular systolic pressure is normal. The right ventricular systolic pressure is 31 mmHg. Normal right atrial pressure. There is no evidence of pulmonary hypertension. Great Vessels All visible segments of the aorta are normal in size. The pulmonary artery was not well visualized. There is no dilatation of the ascending aorta measuring 3.10 cm. Small plaque is seen in the sino tubular ridge. Venous The inferior vena cava is normal in size and collapses greater than 50% with inspiration. Pericardium/Pleural There is no evidence of pericardial effusion. Prior Study Comparison No prior study available for comparison. Measurements 2D Linear Measurements IVSd: 1.33 0.6-0.9/0.6-1.0 cm LVIDd: 3.74 3.9-5.3/4.2-5.9 cm LVIDd Index: 2.19 2.4-3.2/2.2-3.1 cm/m2 LVIDs: 2.43 2.0-3.6 cm LVPWd: 0.82 0.7-1.1 cm LV Mass: 158.43 67-162/88-224 g LV Mass Index: 92.65 43-95/49-115 g/m2 LVOT Diam: 2.10 3.0+(-)1.3 cm 2D Systolic Function EF 4C: 65.30 >55% EF 2C: 72.30 >55% EF BiP: 69.20 >55% Mitral Valve MV Pk E: 0.63 MV PK A: 0.89 MV Decel Time: 219.00 E/A: 0.70 E'Lateral: 7.40 E'Medial: 5.66 E/E' Med: 11.10 E/E' Lat: 8.50 PHT: 64.00 MVA PHT: 3.44 Decel Shelby: 2.86 Aortic Valve AoV Pk Valdez: 1.94 AoV Mn Valdez: 1.25 AoV VTI: 0.35 AoV Pk Grad: 15.00 Aov Mn Grad: 7.00 VAUGHN Cont.VTI: 3.34 LVOT LVOT Pk Valdez: 1.79 LVOT Mn Valdez: 1.27 LVOT VTI: 0.33 LVOT Pk Grad: 13.00 LVOT Mn Grad: 7.00 LVOT Diam: 2.10 LVOT Area: 3.46 Diastolic Function MV Pk E: 0.63 MV Pk A: 0.89 E/A: 0.70 E'Medial: 5.66 E/E' Med: 11.10 E' Laterial: 7.40 E/E' Lat: 8.50 Right Ventricle TAPSE (mm): 17.70 TVS' Valdez: 10.90 Tricuspid Valve TR Pk Valdez: 2.65 TR Pk Grad: 28.00 RA Press: 3.00 RVSP: 31.00 Great Vessels Aorta Sinus of Valsalva: 3.52 2.0-3.5 cm Ao Asc: 3.10 2.1-3.4 cm Updated in Other Vendor System with Status of Final Norberto Nelson MD electronically signed on 01/05/2025 3:42:40 PM with status of Final
--- OUTSIDE RECORDS SUMMARY | 2025-01-05 14:16 | XMS_ITS | Clinical Summary ---
Author Organization [facility] Address [address] [place] [address] Phone Care Team Providers Care Mobile Health Vehicle Operator Name Role Phone Elaine Blackburn NP Primary Care Provider [phone] Allergies No known active allergies Medications No known medications Active Problems No known active problems Encounters Date Type Department Care Team Description 12/22/2024 Ancillary Orders [facility],Outside Imaging [address] [place] [address] Nirav Gastelum MD 12/20/2024 12:00 PM EDT Office Visit [facility] Orthopedics & Sports Medicine [address] [place] [address] Alvin Tyson, PAMoiseC Primary osteoarthritis of left knee (Primary Dx) 12/20/2024 Orders Only [facility] Orth[facility]ics & Sports Medicine [address] [place] [address] Provider, MD Lara 10/18/2024 - 10/18/2024 11:59 PM EDT [facility] [address] [place] [address] Unknown, MD Nirav Discharge Disposition: Home or [...] VACCINE (1 - 1-dose 75+ series) 2013 INFLUENZA VACCINE (#1) 2024 12/28/2019 COVID-19 VACCINE (3 - 2024-2 6 season) 2025 06/25/2020, 06/04/2020 HEPATITIS A VACCINES Aged Out 07/12/2020 No [...] Final Result from Last [address] [place] [address] [address] [place] [address] MEDICARE PPO BLUE [place] [address] [address] MEDICARE PPO [place] [address] [place] [address] MEDICARE PPO [place] [address] [place] [address] MEDICARE PPO BLUE REPLACEMENT Care Teams Mobile Health Vehicle Operator Relationship Specialty Start Date End Date Elaine Blackburn NP [address] [place] [address] PCP - General Nurse Practitioner 11/02/23 Additional Source Comments The information contained in this document represents components of the legal health record. It is not the complete legal health record.[facility]
--- OUTSIDE RECORDS SUMMARY | 2025-01-05 14:16 | XMS_ITS | Encounter Summary ---
Author Organization [facility] Address [address] [address] Phone Care Team Providers Care [facility] Psychiatrist Name Role Phone Pcp, Unknown Primary Care Provider Elaine Manning NP Primary Care Provider [phone] Reason for Referral * Physical Therapy (Routine) - Closed Specialty Diagnoses / Procedures Referred By Contariana t Referred To Contact Physical Therapy Diagnoses Encounter for rehabilitation Shay Baker MD [address] [place] [address] Phone: tel: fax: [email or web address] [address] [place] [address] Phone: tel: Referral ID Status Reason Start Date Expiration Date Visits Re quested Visits Authorized [id number] Closed 08/06/2023 2024 99 99 Encounter Details Date Type Department Care Team (Latest Contact Info) Description 08/06/2023 Transcribe Orders [facility] [address] [place] [address] Shay Baker MD [address] [place] [address] [email or web address] Encounter for rehabilitation (Primary Dx) Social History [...] Date/Time Associated Diagnosis Comments AMB REFERRAL TO [facility] PHYSICAL THERAPY Routine 10/28/2023 10:13 AM EDT Encounter for rehabilitation documented in this encounter Results * Ambulatory referral to [facility] Physical Therapy (10/28/2023 10:13 AM EDT) Other us Shay Baker MD AMB [facility] REFERRALS Final R esult documented in this encounter Visit Diagnoses Diagnosis Encounter for rehabilitation- Primary documented in this encounter Care Teams [facility] Facility Psychiatrist Relationship Specialty Start Date End Date Pcp, Unknown PCP - General 08/04/23 11/01/23 Elaine Blackburn NP [address] [place] [address] PCP - General Nurse Practitioner 11/02/23 documented as of this encounter Additional Source Comments The information contained in this document represents components of the legal health record. It is not the complete legal health record.[facility]
--- OUTSIDE RECORDS SUMMARY | 2025-01-05 14:16 | XMS_ITS | Patient Health Record ---
Author Organization Kb Asher III, MD Address [address] [place] [address] Care Team Providers Care Qa Analyst Name Role Phone Mery GALO, Chavez Primary Care Provider Kb Cook Unavailable [phone] Allergies Allergen (clinical drug ingredient) Drug/Non Drug Allergy documented on EMR Reaction Allergy Type Onset Date Status acetaminophen / oxycodone Percocet nausea/ hives Drug Allergy Active amoxicillin / clavulanate Augmentin Unknown Drug Allergy Active amoxicillin Amoxicillin Rash Drug Allergy Act adalberto Reason For Referral No Information Medications Medication SIG (Take, Route, Frequency, Duration) Notes Start Date End Date Status Aspirin 81 81 MG 1 tablet Orally Once a day Active Vitamin D 1000 UNIT 1 tablet Orally Once a day Active amLODIPine Besylate 5 MG (Prior Auth: Rx Ref#:[id number]) Oral Active Eliquis 5 MG as directed [...] Problem Status W/U Status Risk Notes Problem 7262147 Former smoker (Z87.891) Active confirmed She has a plan to prevent relapse in times of stress and illness. Problem 94821033 Hiatal hernia (K44.9) Active confirmed Her symptoms are mild and well controlled with bstw-mqf-wtrx ter medication. No change in her regimen is necessary. 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 His free of disease. She will be seen once a year. 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 Problem 48223248 Gastrointestinal hemorrhage, unspecified gastrointestinal hemorrhage type (K92.2) Active confirmed She gives a history of episodic bleeding. Causes unclear and she is not aware of it. She has been referred to a surgeon at [facility] to evaluate this and also a possible small bowel obstruction episode. Problem [id number] Acute deep vein thrombosis (DVT) of calf [...] Date Provider Diagnosis Kb Asher III, MD [address] [place] [address] DR VILLARREAL, YOLANDA [id number] 07/20/2024 Kb Asher Ovarian sarcoma, unspecified laterality [...] symptoms are mild and well controlled with dbmy-xbe-bfhowdh medication. No change in her regimen is [...] E89.40) She remains under the care of superintendent geophysical laboratory and primary care physician. 07/20/2024 Gastrointestinal hemorrhage, unspecified gastrointestinal hemorrhage type (ICD-10 - K92.2) She gives a history of episodic bleeding. Causes unclear and she is not aware of it. She has been referred to a surgeon at [facility] to evaluate this and also a possible small bowel obstruction episode. 07/20/2024 Former smoker (ICD-1 0 - Z87.891) She has a plan to prevent relapse in times of stress and illness. Plan Of Treatment Next Appt Details Provider Name:Kb Asher, 07/13/2025 10:00:00 AM, [address] [place] [address] GISELA CORONADO, [place], [address], Insurance Providers Payer Name Payer Address Payer Phone Subscriber Number Group Number Insured Name Patient Relationship to Insured Coverage Start Date Coverage End Date [facility] [address] [place], [place] [id number] Moriah Zacarias Self - patient is the insured Medical (General) History Medical History History ICD Code [id number] menopause between ages 52 and 54 In 1975 she was hospitalized for a sheba ite obtained in [place]. 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
--- OUTSIDE RECORDS SUMMARY | 2025-01-05 14:16 | XMS_ITS | Encounter Summary ---
Author Organization [facility] Address [address] [place] [address] Phone Care Team Providers Care Embedded Software Engineer Name Role Phone BereElaine NP Primary Care Provider [phone] Encounter Details Date Type Department Care Team (Late st Contact Info) Description 12/20/2024 Orders Only [facility] Orthopedics & Sports Medicine [address] [place] [address] Provider, MD Lara [address] [place] [address] Social History Tobacco Use Types Packs/Day [...] on filedocumented in this encounter Care Teams Embedded Software Engineer Relationship Specialty Start Date End Date Bere, CORRIE Henry [address] [place] [address] PCP - General Nurse Practitioner 11/02/23 documented as of this encounter Additional Source Comments The information contained in this document represents components of the legal health record. It is not the complete legal health record.[facility]
== END ==
LOC: HO.CARD 13:00
PROVIDERS: Visit Provider Physician Assistant
DX: Z01.818 Encounter for other preprocedural examination (principal)
CPT/HCPCS: 93306; Q9957

== ENCOUNTER → 2025-01-05 13:03 | Outpatient (BNV) | payer MEDICARE, SELFPAY | PROVIDERS: Visit Provider Internal Medicine Cardiovascular Disease | DX: I42.1 Obstructive hypertrophic cardiomyopathy (principal) | CPT/HCPCS: 93306 ==

== ENCOUNTER 2025-01-11 08:23 | Day surgery (SDC) | payer MEDICARE, SELFPAY ==
--- OUTSIDE RECORDS SUMMARY | 2023-07-15 05:00 | XMS_ITS ---
Author Organization Kb Asher III, MD Address [address] [place] [address] Care Team Providers Care Race Starter Name Role Phone Mery GALO, Chavez Primary Care Provider Kb Cook Unavailable [phone] Allergies Allergen (clinical drug ingredient) Drug/Non Drug [...] amLODIPine Besylate 5 MG (Prior Auth: Rx Ref#:[id number]) Oral Active Eliquis 5 MG as directed [...] Date Provider Diagnosis Kb Asher III, MD [address] [place] [address] [address] VILLARREAL, YOLANDA [address] 07/15/2023 Kb Asher Ovarian sarcoma, unspecified laterality [...] symptoms are mild and well controlled with mhco-pgl-kivasui medication. No change in her regimen is necessary. 07/15/2023 Asymptomatic postsurgical menopause (ICD-10 - E89.40) She remains under the care of merchandise appraiser and primary care physician. 07/15/2023 Gastrointestinal hemorrhage, unspecified gastrointestinal hemorrhage type (ICD-10 - K92.2) She gives a history of episodic bleeding. Causes unclear and she is not aware of it. She has been referred to a surgeon at [facility] to evaluate this and also a possible [...] amLODIPine Besylate 5 MG (Prior Auth: Rx Ref#:[id number]) Oral Eliquis 5 MG as directed Orally [...] tests Provider Name:Kb Asher, 07/13/2025 10:00:00 AM, [address] [place] [address] DR, [place] [address], [place], [address], Progress Notes * Moriah ASHLEY ADOB:1939 (83 yo F)Acc No.[id number]:07/15/2023 Progress Notes Patient: Moriah Brut Provider: Florencio Asher MD :1940 A ge:83 Y S ex:Female Date:07/15/2023 Address:[address] [place], [place] [id number] Pcp:Chavez Ordonez MD Subjective: * Chief Complaints: * H istory of ovarian sarcoma * HPI: C OVID-19 Screening: 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 She is now 83 years old and asymptomatic. Her primary care provider is Vanessa Blackburn NP, at the [facility] in [place]. She is on an antibiotic for UTI. [...] ggressive non-smoker S he was born in [place], [place]. She is to [place] for many years. * Medications: T akingVitamin B 12 100 MCG Lozenge as directed Orally once a dayAcamprosate Calcium 333 MG Tablet Delayed Release 3 tablets Orally once adayLosartan Potassium 50 MG Tablet 1 tablet Orally Once a dayamLODIPine Besylate 5 MG Tablet (Prior Auth: Rx Ref#:[id number]) Oral Eliquis 5 MG Tablet as directed [...] Besylate 5 MG Tablet (Prior Auth: Rx Ref#:[id number]) Oral Taking Eliquis 5 MG Tablet as [...] symptoms are mild and well controlled with ylxk-nug-qeqeben medication. No change in her regimen is necessary. 3 . 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 4 . G astrointestinal hemorrhage, unspecified gastrointestinal hemorrhage type - K92.2, She gives a history of episodic bleeding. Causes unclear and she is not aware of it. She has been referred to a surgeon at [facility] to evaluate this and also a possible [...] 07/15/2023 Generated for Mario burton/Michael/Joceitting on: 0 01/09/2025 04:49 PM EDT History and Physical Notes * [...]
--- OUTSIDE RECORDS SUMMARY | 2024-07-20 05:30 | XMS_ITS ---
Author Organization Kb Asher III, MD Address [address] [place] [address] Care Team Providers Care Clinical Technician Name Role Phone Mery GALO, [place] Primary Care Provider Kb Cook Unavailable [phone] Allergies Allergen (clinical drug ingredient) Drug/Non Drug [...] amLODIPine Besylate 5 MG (Prior Auth: Rx Ref#:[id number]) Oral Active Eliquis 5 MG as directed Orally Active Social History Tobacco Use: Social History Observation Description Date Details (start date - stop date) Never Smoker NA - NA Tobacco Use/Smoking Question Answer Notes Patient is a nonsmoker Additional Findings: Tobacco Non-User Aggressive non-smoker Problems Problem Type SNOMED Code ICD Code Onset Dates Problem Status W/U Status Risk Notes Problem [id number] Former smoker (Z87.891) Active confirmed She has [...] Date Provider Diagnosis Kb Asher III, MD [address] [place] [address] DR VELIZSARAH, YOLANDA [address] 07/20/2024 Kb Asher Ovarian sarcoma, unspecified laterality [...] symptoms are mild and well controlled with qupk-msl-kqxeewj medication. No change in her regimen is necessary. 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 07/20/2024 Gastrointestinal hemorrhage, unspecified gastrointestinal hemorrhage type (ICD-10 - K92.2) She gives a history of episodic bleeding. Causes unclear and she is not aware of it. She has been referred to a surgeon at [facility] to evaluate this and also a [...] amLODIPine Besylate 5 MG (Prior Auth: Rx Ref#:[id number]) Oral Eliquis 5 MG as directed Orally Next Appt Details Follow Up: 1 Year, Reason: o v Provider Name:Kb Asher, 07/13/2025 10:00:00 AM, [address] [place] [address] GISELA CORONADO, [place], [address], Progress Notes * Moriah ASHLEY ADOB:1939 (84 yo F)Acc No.[id number]:07/20/2024 Progress Notes Patient: Moriah FISHER Provider: Florencio Ashre MD :1940 A ge:84 Y S ex:Female Date:07/20/2024 Address:[address] [place], [place] [id number] Pcp:Chavez Ordonez MD Subjective: * Chief Complaints: * H istory of ovarian sarcomaHistory of DVTHistory of gastrointestinal hemorrhage * HPI: C OVID-19 Screening: 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 She was treated with resection followed by adjuvant radiation therapy. He has been compliant with follow-up by PROJECT MANAGEMENT CONSULTANT. She has had no new complaints [...] ggressive non-smoker S he was born in [place], [place]. She is to [place]avez for many years. * Medications: T akingVitamin B 12 100 MCG Lozenge as directed Orally once a day Acamprosate Calcium 333 MG Tablet Delayed Release 3 tablets Orally once aday Losartan Potassium 50 MG Tablet 1 tablet Orally Once a day amLODIPine Besylate 5 MG Tablet (Prior Auth: Rx Ref#:[id number]) Oral Eliquis 5 MG Tablet as directed [...] Besylate 5 MG Tablet (Prior Auth: Rx Ref#:[id number]) Oral Taking Eliquis 5 MG Tablet as [...] symptoms are mild and well controlled with zrmn-tud-cnzolem medication. No change in her regimen is necessary. 3 . I leus of unspecified type - K56.7 4 . A symptomatic postsurgical menopause - E89.40 N otes :She remains under the care of security rep and primary care physician. 5 . G astrointestinal hemorrhage, unspecified gastrointestinal hemorrhage type - K92.2 N otes :She gives a history of episodic bleeding. Causes unclear and she is not aware of it. She has been referred to a surgeon at [facility] to evaluate this and also a [...] 07/20/2024 Generated for Mario burton/Michael/Joceitting on: 0 01/09/2025 [...]
[2025-01-05 14:51] VITALS: BMI 24.0
[2025-01-05 15:06] VITALS: BMI 24.0
--- NOTE | 2025-01-09 14:45 | HO.ANESPROP2 ---
Documented by User: Miley Nguyen NP 01/11/25 08:26 HPI - Anesthesia Eval Consult details Narrative: 84 yr old female for right olecranon ORIF Se[facility] [place] [facility] [place] nonsyncopal fall 12/26/24, EKG was notable for bivascular block, pt had echo done 01/05/25 that was essentially unremarkable (see below) PMFSH Past Medical History Medical History Subclinical hypothyroidism RLS (restless legs syndrome) Raynauds disease Prolonged QT interval Radiation proctitis Peripheral neuropathy Osteoporosis LVH (left ventricular hypertrophy) Leukopenia Insomnia Compression fracture of vertebra Ovarian cancer Small bowel obstruction Dupuytren contracture Fatty liver Chronic back pain Celiac artery stenosis Acquired lymphedema Hypertension Surgical History Surgical History History of gastric surgery Social History Social History Patient Tobacco Use Status: Never used Tobacco Use of substances other than those prescribed or required for medical reasons: No Advance Directives Information Provided: Yes FDLMP: n/a Current occupational status: retired Meds Allergies Allergy/AdvReac Type Severity Reaction Status Date / Time oxycodone Allergy Intermediate Nausea Verified 01/05/25 14:57 amoxicillin Allergy Unknown Unknown Verified 01/05/25 14:57 clavulanic acid (From Allergy Unknown Unknown Verified 01/05/25 14:57 Augmentin) methenamine Allergy Unknown Unknown Verified 01/05/25 14:57 nirmatrelvir (From Paxlovid) Allergy Unknown Unknown Verified 01/05/25 14:57 nitrofurantoin Allergy Unknown Unknown Verified 01/05/25 14:57 ritonavir (From Paxlovid) Allergy Unknown Unknown Verified 01/05/25 14:57 lisinopril AdvReac Intermediate Cough Verified 01/05/25 14:57 Home Medications ?Medication ?Instructions ?Recorded ?Confirmed ?Last Taken ?Type amlodipine 5 mg tablet 5 mg PO DAILY 12/26/24 01/05/25 01/10/25 History denosumab 60 mg/mL subcutaneous 60 mg subcut [id number] 12/26/24 01/05/25 10/11/24 History syringe (Prolia) famotidine 40 mg tablet 40 mg PO DAILY 12/26/24 01/05/25 01/10/25 History losartan 50 mg tablet 50 mg PO DAILY 12/26/24 01/05/25 01/10/25 History mirtazapine 15 mg tablet 15 mg PO BEDTIME 12/26/24 01/05/25 01/10/25 History aspirin 81 mg tablet,delayed 81 mg PO DAILY 01/05/25 01/05/25 01/09/25 History release cholecalciferol (vitamin D3) 10 10 mcg PO DAILY 01/05/25 01/05/25 01/09/25 History mcg (400 unit) tablet (Vitamin D3) cyanocobalamin (vitamin B-12) 1,000 mcg PO DAILY 01/05/25 01/05/25 01/10/25 History 1,000 mcg tablet (Vitamin B-12) fluticasone propionate 50 1 spray intranasal DAILY 01/05/25 01/05/25 01/10/25 History mcg/actuation nasal spray,suspension Exam Height,Weight and Vital Signs: Height 5 ft 5 in Weight 65.317 kg Pertinent Lab Results Pertinent Lab Results: Laboratory Tests 12/27/24 12/27/24 16:49 19:22 WBC 4.8 RBC 4.03 L Hgb 12.7 Hct 38.4 Plt Count 280 Sodium 140 Potassium 4.4 BUN 27 H Creatinine 1.34 Narrative Narrative: EKG 12/2024 Vent. Rate : 84 BPM Atrial Rate : 84 BPM P-R Int : 132 ms QRS Dur : 108 ms QT Int : 390 ms P-R-T Axes : 55 -66 42 degrees QTcB Int : 460 ms Normal sinus rhythm Right bundle branch block Left anterior fascicular block Bifascicular block Abnormal ECG No previous ECGs available ECHO 01/05/25 Conclusions: - 1. Normal LV ejection fraction of 65-70% with mild asymmetric septal hypertrophy with dynamic LVOT obstruction of mild degree 2. Normal cardiac valvular Dopplers 3. Normal RV systolic pressure 4. No gross pericardial effusion Documented by User: Irma Castillo MD 01/11/25 11:21 [facility] Past Medical History Medical History Subclinical hypothyroidism RLS (restless legs syndrome) Raynauds disease Prolonged QT interval Radiation proctitis Peripheral neuropathy Osteoporosis LVH (left ventricular hypertrophy) Leukopenia Insomnia Compression fracture of vertebra Ovarian cancer Small bowel obstruction Dupuytren contracture Fatty liver Chronic back pain Celiac artery stenosis Acquired lymphedema Hypertension Family History Family history of problems with anesthesia: No Surgical History Surgical History History of gastric surgery History of Problems with Anesthesia: No Social History Social History Patient Tobacco Use Status: Never used Tobacco Use of substances other than those prescribed or required for medical reasons: No Advance Directives Information Provided: Yes FDLMP: n/a Current occupational status: retired [employer] Allergies Allergy/AdvReac Type Severity Reaction Status Date / Time oxycodone Allergy Intermediate Nausea Verified 01/05/25 14:57 amoxicillin Allergy Unknown Unknown Verified 01/05/25 14:57 clavulanic acid (From Allergy Unknown Unknown Verified 01/05/25 14:57 Augmentin) methenamine Allergy Unknown Unknown Verified 01/05/25 14:57 nirmatrelvir (From Paxlovid) Allergy Unknown Unknown Verified 01/05/25 14:57 nitrofurantoin Allergy Unknown Unknown Verified 01/05/25 14:57 ritonavir (From Paxlovid) Allergy Unknown Unknown Verified 01/05/25 14:57 lisinopril AdvReac Intermediate Cough Verified 01/05/25 14:57 Home Medications ?Medication ?Instructions ?Recorded ?Confirmed ?Last Taken ?Type amlodipine 5 mg tablet 5 mg PO DAILY 12/26/24 01/05/25 01/10/25 History denosumab 60 mg/mL subcutaneous 60 mg subcut [id number] 12/26/24 01/05/25 10/11/24 History syringe (Prolia) famotidine 40 mg tablet 40 mg PO DAILY 12/26/24 01/05/2525 History losartan 50 mg tablet 50 mg PO DAILY 12/26/24 01/05/25 01/10/25 History mirtazapine 15 mg tablet 15 mg PO BEDTIME 12/26/24 01/05/25 01/10/25 History aspirin 81 mg tablet,delayed 81 mg PO DAILY 01/05/25 01/05/25 01/09/25 History release cholecalciferol (vitamin D3) 10 10 mcg PO DAILY 01/05/25 01/05/25 01/09/25 History mcg (400 unit) tablet (Vitamin D3) cyanocobalamin (vitamin B-12) 1,000 mcg PO DAILY 01/05/25 01/05/25 01/10/25 History 1,000 mcg tablet (Vitamin B-12) fluticasone propionate 50 1 spray intranasal DAILY 01/05/25 01/05/25 01/10/25 History mcg/actuation nasal spray,suspension Exam Airway Mallampati Class: II TM Dist: >3cm Neck ROM: Limited Heart: rrr Lungs: cta Assessment and Plan Assessment Anesthesia Assessment: Anesthesia Plan Discussed and Chart Reviewed Final Anesthetic Review Family History of Problems with Anesthesia: No History of Problems with Anesthesia: No NPO: Yes ASA Class: III Final Preanesthetic Review: No Changes in Pt Med Stat, Meds/Allgs Chart Reviewed, Consent Obtained/Reviewed and Anes Risks/Benef Reviewed Patient Risk: Intermediate Procedure Risk: Intermediate Anesthetic Plan Anesthetic Plan: GA, Regional Block and Agree w/ Assess. and Plan Disposition: Standard PACU
--- OUTSIDE RECORDS SUMMARY | 2025-01-09 16:49 | XMS_ITS | Encounter Summary ---
Author Organization [facility] Address [address] [address] Phone Care Team Providers Care Online Content Developer Name Role Phone Pcp, Unknown Primary Care Provider Elaine Manning NP Primary Care Provider [phone] Reason for Referral * Physical Therapy (Routine) - Closed Specialty Diagnoses / Procedures Referred By Contariana t Referred To Contact Physical Therapy Diagnoses Encounter for rehabilitation Shay Baker MD [address] [employer] [address] [place] [address] Phone: tel: fax: [email or web address]:[email or web address] [address] [place] [address] Phone: tel: Referral ID Status Reason Start Date Expiration Date Visits Re quested Visits Authorized [id number] Closed 08/06/2023 2024 99 99 Encounter Details Date Type Department Care Team (Latest Contact Info) Description 08/06/2023 Transcribe Orders [facility] Rehabilitation [facility] [address] [place] [address] Shay Baker MD [address] [employer] [address] [place] [address] [email or web address] Encounter for rehabilitation (Primary Dx) Social History [...] Date/Time Associated Diagnosis Comments AMB REFERRAL TO [facility] PHYSICAL THERAPY Routine 10/28/2023 10:13 AM EDT Encounter for rehabilitation documented in this encounter Results * Ambulatory referral to [facility] Physical Therapy (10/28/2023 10:13 AM EDT) Other us Shay Baker MD AMB [facility] REFERRALS Final R esult documented in this encounter Visit Diagnoses Diagnosis Encounter for rehabilitation- Primary documented in this encounter Care Teams Online Content Developer Relationship Specialty Start Date End Date Pcp, Unknown PCP - General 08/04/23 11/01/23 Elaine Blackburn NP [address] [place] [address] PCP - General Nurse Practitioner 11/02/23 documented as of this encounter Additional Source Comments The information contained in this document represents components of the legal health record. It is not the complete legal health record.[facility]
--- OUTSIDE RECORDS SUMMARY | 2025-01-09 16:49 | XMS_ITS | Encounter Summary ---
Author Organization [facility] Address [address] [place] [address] Phone Care Team Providers Care Electrical Calibrator Name Role Phone BereElaine NP Primary Care Provider [phone] Encounter Details Date Type Department Care Team (Late st Contact Info) Description 12/20/2024 Orders Only [facility] [address] [place] [address] Provider, MD Lara [address] [place] [address] Social History Tobacco Use Types Packs/Day [...] on filedocumented in this encounter Care Teams Electrical Calibrator Relationship Specialty Start Date End Date Bere, CORRIE Henry [address] [place] [address] PCP - General Nurse Practitioner 11/02/23 documented as of this encounter Additional Source Comments The information contained in this document represents components of the legal health record. It is not the complete legal health record.[facility]
--- OUTSIDE RECORDS SUMMARY | 2025-01-09 16:49 | XMS_ITS | Patient Health Record ---
Author Organization Kb Asher III, MD Address [address] [place] [address] Care Team Providers Care Supervisor Travel Trailer Name Role Phone Mery GALO, Chavez Primary Care Provider Kb Cook Unavailable [phone] Allergies Allergen (clinical drug ingredient) Drug/Non Drug [...] amLODIPine Besylate 5 MG (Prior Auth: Rx Ref#:[id number]) Oral Active Eliquis 5 MG as directed [...] Problem Status W/U Status Risk Notes Problem 9808431 Former smoker (Z87.891) Active confirmed She has a plan to prevent relapse in times of stress and illness. Problem 74172556 Hiatal hernia (K44.9) Active confirmed Her symptoms are mild and well controlled with oqyl-wvk-sakx ter medication. No change in her regimen is necessary. 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 His free of disease. She will be seen once a year. 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 Problem 29183099 Gastrointestinal hemorrhage, unspecified gastrointestinal hemorrhage type (K92.2) Active confirmed She gives a history of episodic bleeding. Causes unclear and she is not aware of it. She has been referred to a surgeon at [facility] to evaluate this and also a possible small bowel obstruction episode. Problem [id number] Acute deep vein thrombosis (DVT) of calf [...] Date Provider Diagnosis Kb Asher III, MD [address] [place] [address] DR VILLARREAL, YOLANDA [id number] 07/20/2024 Kb Asher Ovarian sarcoma, unspecified laterality [...] symptoms are mild and well controlled with ryqm-ghg-olzqrmh medication. No change in her regimen is [...] E89.40) She remains under the care of supply chain consultant and primary care physician. 07/20/2024 Gastrointestinal hemorrhage, unspecified gastrointestinal hemorrhage type (ICD-10 - K92.2) She gives a history of episodic bleeding. Causes unclear and she is not aware of it. She has been referred to a surgeon at [facility] to evaluate this and also a possible small bowel obstruction episode. 07/20/2024 Former smoker (ICD-1 0 - Z87.891) She has a plan to prevent relapse in times of stress and illness. Plan Of Treatment Next Appt Details Provider Name:Kb Asehr, 07/13/2025 10:00:00 AM, [address] [place] [address] GISELA CORONADO, [place], [address], Insurance Providers Payer Name Payer Address Payer Phone Subscriber Number Group Number Insured Name Patient Relationship to Insured Coverage Start Date Coverage End Date [facility] [address] [place], [place] [id number] Moriah Zacarias Self - patient is the insured Medical (General) History Medical History History ICD Code [id number] menopause between ages 52 and 54 In 1975 she was hospitalized for a sheba ite obtained in [email or web address]. 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
--- OUTSIDE RECORDS SUMMARY | 2025-01-09 16:49 | XMS_ITS | Clinical Summary ---
Author Organization [facility] Address [address] [place] [address] Phone Care Team Providers Care Process Description Writer Name Role Phone Elaine Blackburn NP Primary Care Provider [phone] Allergies No known active allergies Medications No known medications Active Problems No known active problems Encounters Date Type Department Care Team Description 12/22/2024 Ancillary Orders [facility],Outside Imaging [address] [place] [address] Nirav Gastelum MD 12/20/2024 12:00 PM EDT Office Visit [facility] [address] [place] [address] Alvin Tyson, PAMoise[employer] Primary osteoarthritis of left knee (Primary Dx) 12/20/2024 Orders Only [facility] [address] [place] [address] Provider, MD Lara 10/18/2024 - 10/18/2024 11:59 PM EDT [facility] [address] [place] [address] Unknown, MD Nirav Discharge Disposition: Home or [...] Final Result from Last [address] [place] [address] [address] [place] [address] MEDICARE PPO [place] [address] [address] [place] [address] [address] [place] [address] [place] [address] MED[address] [place] [address] [place] [address] MEDICARE PPO BLUE REPLACEMENT Care Teams Process Description Writer Relationship Specialty Start Date End Date Elaine Blackburn NP [address] [place] [address] PCP - General Nurse Practitioner 11/02/23 Additional Source Comments The information contained in this document represents components of the legal health record. It is not the complete legal health record.[facility]
[2025-01-11] VITALS (10 sets, daily range): BP systolic 123–161; BP diastolic 59–77; PULSE 69–79; RESP 12–20; TEMP 36.1–36.6; O2SAT 94–99; BMI 24.0
--- NOTE | ~2025-01-11 | FL_ITS ---
EXAMINATION: FL GUIDANCE ONLY HISTORY: olecranon ORIF, right COMPARISON: Correlation is made with plain films of the right elbow dated 01/04/2025. TECHNIQUE: Fluoroscopy time: 0.4 minutes. Cumulative Dose: 0.55 mGy. DAP: 0.0148 mGym2 Images: 3. FINDINGS: Fluoroscopic spot films of the right elbow demonstrate internal fixation of the previously seen comminuted fracture of the olecranon with a sideplate and multiple orthopedic screws. FL/FL guidance in OR IMPRESSION: Fluoroscopy during procedure. Please see procedure report for additional information. Electronically signed by: Kb Cartwright MD 01/11/2025 01:13 PM EDT
[2025-01-11] MEDS: Lactated Ringers 1,000 ML 100 ML IVCONT ×3 (09:19→23:13)
--- NOTE | 2025-01-11 09:20 | PC.NURSE ---
pt able to wiggle fingers denies numbness/tingling to right side pwd good capillary refill brace removed from left left leg elevated pt denies pain
--- NOTE | 2025-01-11 10:15 | MHC.SHP ---
Pre-Procedural Eval Section A - 24 Hr Update-Section A only Date of Service: 01/11/25 The patient is an INPATIENT: No Changes since office visit: No Cold of Flu in the past 2 weeks, No New Medical Problems, No Changes in Medication and No Patient answered all questions The patient has been examined within 24 hours of the surgical procedure. The History & Physical has been completed within 30 days and I have reviewed it.: Yes Section B - Complete if H&P > 30 days Chief Complaint: Displaced fracture of olecranon process Allergies: Allergies Allergy/AdvReac Type Severity Reaction Status Date / Time oxycodone Allergy Intermediate Nausea Verified 01/05/25 14:57 amoxicillin Allergy Unknown Unknown Verified 01/05/25 14:57 clavulanic acid (From Allergy Unknown Unknown Verified 01/05/25 14:57 Augmentin) methenamine Allergy Unknown Unknown Verified 01/05/25 14:57 nirmatrelvir (From Paxlovid) Allergy Unknown Unknown Verified 01/05/25 14:57 nitrofurantoin Allergy Unknown Unknown Verified 01/05/25 14:57 ritonavir (From Paxlovid) Allergy Unknown Unknown Verified 01/05/25 14:57 lisinopril AdvReac Intermediate Cough Verified 01/05/25 14:57 Plan I have reviewed the history and physical and performed a pertinent physical examination on my patient. No changes have occurred unless specified. Time Spent With Patient Time: Total time managing care of this patient today ____ minutes.
--- NOTE | 2025-01-11 13:22 | P.BOP_ITS ---
Brief Operative Note Date of Service: 01/11/25 Pre-op diagnosis: Displaced Olecranon fracture Post-op diagnosis: same Procedure: ORIF right Olecranon fracture Implants: [place] locking plate Surgeon: Blair Gutierrez MD Anesthesia: GETA Was an Central Communications Specialist used for this Procedure?: Yes Central Communications Specialist: Twila Jimenez Estimated blood loss (mL): 50 IV fluids (mL): 750 Pathology: none sent Condition: stable Disposition: PACU
[2025-01-11] MEDS: 0.9 % Sodium Chloride Flush 3 ML SYRINGE IVFLUSH (15:02)
--- NOTE | 2025-01-11 15:24 | PHA.MEDREC ---
Addendum entered by Augustus Gallegos, PharmD 01/11/25 16:15: MED REC CHECKED BY [facility] Original Note: Pharmacy Consult ? Medication Reconciliation Pharmacy has completed the medication reconciliation. Spoke with pt and pt son at bedside; spouse was able to confirm medications. Pt spouse confirmed pt takes Prolia every 6 months; spouse confirmed pt got it in the last couple months and isnt due to get it until the beginning of the year. Pt spouse states pt took one medication this morning but doesn't remember what one that was and confirmed everything else was yesterday.
--- NOTE | 2025-01-11 18:38 | P.CONHOSP_ITS ---
History of Present Illness Data of Consult Service Date: 01/11/25 Primary Care Provider: Elaine Blackburn NP HPI Reason for consult: Medical management Pt is an 84-year-old female with a PMH significant for HTN,, osteoporosis, GERD, and mood disorder who was admitted to the hospital under orthopedic services for elective ORIF of right olecranon fracture. Pt originally suffered olecranon and left patella fractures on 12/25 after mechanical fall in the community. Pt was initially treated conservatively with a sling, but is primarily right-hand dominant and elected to undergo surgical repair for maximum mobility on 01/11. Hospitalist consult for medical management. Pt seen and evaluated where she is resting comfortably in bed, eating her dinner using her left hand. Pt reports mild right arm discomfort but pain overall well-controlled. Also complains of some abdominal discomfort, but no nausea or vomiting, and is able to tolerate her diet. Denies any chest pain/pressure, palpitations. No SOB or difficulty breathing. Review of Systems Review of Systems: Negative except for that which is stated in the HPI. [facility] Medical History Subclinical hypothyroidism RLS (restless legs syndrome) Raynauds disease Prolonged QT interval Radiation proctitis Peripheral neuropathy Osteoporosis LVH (left ventricular hypertrophy) Leukopenia Insomnia Compression fracture of vertebra Ovarian cancer Small bowel obstruction Dupuytren contracture Fatty liver Chronic back pain Celiac artery stenosis Acquired lymphedema Hypertension Surgical History History of gastric surgery Social History Household Members: Spouse Housing: Condominium Do you presently have visiting nurse or other home services: No Comment: COUNTS CORRECT Patient Tobacco Use Status: Never used Tobacco Smoked in Last 30 Days: No Patient Interested in Nicotine Replacement: No Patient Given Instructions on How to Stop Smoking: No Second Hand Smoke Exposure: No Use of substances other than those prescribed or required for medical reasons: No Have you been hit, kicked, punched, or otherwise hurt by someone within the past year? If so, by whom?: No Do you feel safe in your current relationship?: Yes Is there a partner from a previous relationship who is making you feel unsafe now?: No Are you made to feel afraid or neglected: No Advance Directives Information Provided: Yes Do you have a plan to hurt others: No Plan Recently lost weight without trying: No Eating poorly because of decreased appetite: No Nutrition Risks: No Nutritional Risk Patient : No FDLMP: n/a : No Poor oral hygiene: No Current occupational status: retired [employer] Allergies Allergy/AdvReac Type Severity Reaction Status Date / Time oxycodone Allergy Intermediate Nausea Verified 01/05/25 14:57 amoxicillin Allergy Unknown Unknown Verified 01/05/25 14:57 clavulanic acid (From Allergy Unknown Unknown Verified 01/05/25 14:57 Augmentin) methenamine Allergy Unknown Unknown Verified 01/05/25 14:57 nirmatrelvir (From Paxlovid) Allergy Unknown Unknown Verified 01/05/25 14:57 nitrofurantoin Allergy Unknown Unknown Verified 01/05/25 14:57 ritonavir (From Paxlovid) Allergy Unknown Unknown Verified 01/05/25 14:57 lisinopril AdvReac Intermediate Cough Verified 01/05/25 14:57 Active Medications: Current Medications Acetaminophen (Acetaminophen 325 Mg Tablet) 650 mg PO Q6H PRN PRN Reason: Pain, Mild 1-3,fever,headache Amlodipine Besylate (Amlodipine Besylate 5 Mg Tablet) 5 mg PO DAILY [facility]; Protocol Aspirin (Aspirin 325 Mg Tablet) 325 mg PO BID [facility] Celecoxib (Celecoxib 200 Mg Capsule) 200 mg PO BID [facility] Cyanocobalamin (Cyanocobalamin (Vitamin B-12) 1,000 Mcg Tablet) 1,000 mcg PO DAILY [facility] Docusate Sodium (Docusate Sodium 100 Mg Capsule) 100 mg PO BID [facility] Famotidine (Famotidine 20 Mg Tablet) 40 mg PO DAILY [facility] Fluticasone Propionate (Fluticasone Propionate Nasal 16 Gm [place]) 1 spray NOSTRIL-B DAILY [facility] Hydromorphone HCl (Hydromorphone Hcl 0.5 Mg/0.5 Ml Syringe) 0.25 mg IVPUSH Q4H PRN; Protocol PRN Reason: Pain, Severe (Pain Scale 7-10) Lactated Ringer's (Lr) 1,000 mls @ 100 mls/hr IVCONT .Q10H [facility] Last Admin: 01/11/25 15:02 Dose: 100 mls/hr Losartan Potassium (Losartan Potassium 50 Mg Tablet) 50 mg PO DAILY [facility]; Protocol Magnesium Hydroxide (Milk Of Magnesia 30 Ml Oral.Susp) 30 ml PO DAILY PRN PRN Reason: Constipation Mirtazapine (Mirtazapine 15 Mg Tablet) 15 mg PO BEDTIME [facility] Naloxone HCl (Naloxone Hcl 0.4 Mg/Ml Vial) 0.04 mg IVPUSH Q5M PRN PRN Reason: Excessive sedation or RR < 8 Ondansetron HCl (Ondansetron Hcl 4 Mg/2 Ml Vial) 4 mg IVPUSH Q8H PRN PRN Reason: Nausea and Vomiting Oxycodone HCl (Oxycodone Hcl Immed Release 5 Mg Tablet) 5 mg PO Q4H PRN PRN Reason: Pain, Moderate(Pain Scale 4-6) Sodium Chloride (0.9 % Sodium Chloride Flush 3 Ml Syringe) 3 ml IVFLUSH QSHIFT [facility] Last Admin: 01/11/25 15:02 Dose: 3 ml Vitamin D (Cholecalciferol (Vitamin D3) 10 Mcg Tablet) 10 mcg PO DAILY [facility] Home Medications ?Medication ?Instructions ?Recorded ?Confirmed ?Last Taken ?Type amlodipine 5 mg tablet 5 mg PO DAILY 12/26/2401/1101/10/25 History denosumab 60 mg/mL subcutaneous 60 mg subcut [id number] 12/26/24 01/11/25 3 Months Ago History syringe (Prolia) ~10/11/24 famotidine 40 mg tablet 40 mg PO DAILY 12/26/2401/0201/10/25 History losartan 50 mg tablet 50 mg PO DAILY 12/26/2401/0201/10/25 History mirtazapine 15 mg tablet 15 mg PO BEDTIME 12/26/2401/10/25 History aspirin 81 mg tablet,delayed 81 mg PO DAILY 01/05/25 0 01/11/25 01/10/25 History release cholecalciferol (vitamin D3) 10 10 mcg PO DAILY 01/11/25 01/10/25 History mcg (400 unit) tablet (Vitamin D3) cyanocobalamin (vitamin B-12) 1,000 mcg PO DAILY 01/0501/11/25 01/10/25 History 1,000 mcg tablet (Vitamin B-12) fluticasone propionate 50 1 spray intranasal DAILY PRN Nasal 01/05/25 01/11/25 Unknown History mcg/actuation nasal Congestion spray,suspension d-mannose 500 mg capsule 500 mg PO DAILY 01/11/2502/2501/10/25 History Physical Exam Vital Signs and Narrative: Vital Signs: Last Vital Signs Temp 97.8 F 01/11/25 14:42 Pulse 76 01/11/25 14:42 Resp 16 01/11/25 14:42 BP 161/77 H 01/11/25 14:42 Pulse Ox 94 01/11/25 14:42 O2 Del Method Room Air 01/11/25 14:42 O2 Flow Rate 2 01/11/25 14:22 BMI result Body Mass Index 24.0 General: AOx3, no acute distress Resp: CTA bilaterally CVS: S1, S2, RRR GI: +BS, NT, no distention Skin: Warm, dry Neuro: Cranial nerves II-XII grossly intact bilaterally. Motor grossly intact bilaterally Extremities: No edema. Right arm in sling. Left knee in brace. Psych: Appropriate affect Results Imaging Radiologist's Impressions: Impressions Guidance Fluoroscopy 01/11/25 11:59 IMPRESSION: Fluoroscopy during procedure. Please see procedure report for additional information. Electronically signed by: Kb Cartwright MD 01/11/2025 01:13 PM EDT RP Assessment and Plan (1) Olecranon fracture: Status: Acute Plan Pt is an 84-year-old female with a PMH significant for HTN,, osteoporosis, GERD, and mood disorder who was admitted to the hospital under orthopedic services for elective ORIF of right olecranon fracture. Displaced right olecranon fracture S/p ORIF on 01/11, POD0 Pain well controlled Plan as per orthopedics HTN Continue amlodipine, losartan GERD Continue famotidine Mood disorder Continue mirtazapine Thank you for allowing us to participate in the care of this patient. Pt appears clinically stable without adjustments to current therapies. Signing off at this time. Please re-consult if any acute complaints or issues arise.
--- NOTE | 2025-01-11 22:01 | MHC.PIE ---
p; pt c/o unable to urinate, pt bladder scanned for >800. note; soliz order in ed - ? never placed in preop or pacu? i; pt educated on soliz, soliz placed e; immediate output of 800ml, will cont to monitor
[2025-01-12 03:31] VITALS: BP 134/66; PULSE 71; RESP 16; TEMP 36; O2SAT 97
[2025-01-12 06:24] LABS: MANUAL DIFF FLAG NO
[2025-01-12 06:27] LABS: Hematocrit 32.0 % (37.0-47.0); Hemoglobin 10.7 g/dl (12.0-16.0); Imm Gran Abs Auto 0.03 X10*3/uL (0.00-0.03); Imm Gran Pct Auto 0.4 % (0.0-0.4); Lymphocytes Absolute Auto 0.4 X10*3/uL (1.2-4.9); Mean Corpuscular HGB Conc 33.4 g/dl (31.0-35.0); Mean Corpuscular Hemoglobin 31.3 pg (27.0-33.0); Mean Corpuscular Volume 93.6 fL (80.0-98.0); NRBC Abs Auto 0.000 X10*3/uL (0.0-0.012); NRBC Pct Auto 0.0 /100WBC (0.0-0.2); Platelet Count 302 X10*3/uL (160-400); Red Blood Count 3.42 X10*6/uL (4.20-5.50); White Blood Count 7.6 X10*3/uL (4.8-10.8)
[2025-01-12 06:51] LABS: Anion Gap 11 (12-20); Blood Urea Nitrogen 17 mg/dL (9-16); Calcium 8.0 mg/dL (8.4-10.2); Carbon Dioxide 25 mmol/L (22-29); Chloride 110 mmol/L (96-108); Creatinine Clr Calc Pharmacy 54.2; Estimated Glomerular Filt Rate > 60; Potassium 4.0 mmol/L (3.3-5.1); Sodium 142 mmol/L (135-145)
[2025-01-12 07:28] VITALS: BP 129/62; PULSE 73; RESP 16; TEMP 36.6; O2SAT 96
[2025-01-12] MEDS: Cholecalciferol (Vitamin D3) 10 MCG TABLET PO (07:46)
[2025-01-12] MEDS: oxyCODONE HCl Immed Release 5 MG TABLET PO ×4 (08:12→19:47)
[2025-01-12] MEDS: Lactated Ringers 1,000 ML 100 ML IVCONT ×2 (09:22→19:30)
--- NOTE | 2025-01-12 09:34 | PM.PNORT ---
Subjective Subjective Date of Service: 01/12/25 Interval history: Postop day 1 status post right olecranon ORIF Patient resting comfortably in bed this morning Splint in place on right elbow, knee immobilizer in place on left knee Pain very well managed No acute events overnight No other acute complaints or concerns at this time Physical Exam Vital Signs: Vital Signs: Last Vital Signs Temp 97.9 F 01/12/25 07:28 Pulse 73 01/12/25 07:28 Resp 16 01/12/25 07:28 BP 129/62 01/12/25 07:28 Pulse Ox 96 01/12/25 07:28 O2 Del Method Room Air 01/12/25 07:28 O2 Flow Rate 2 01/11/25 14:22 BMI result Body Mass Index 24.0 Extrem: Other: Splint on right elbow clean, dry, intact Patient is able to flex and extend all digits of the right hand fully and without difficulty Distal sensation intact Capillary refill brisk Knee immobilizer in place on left knee Patient is able to flex and extend the digits of the left foot fully and without difficulty Compartments soft, nontender Distal sensation intact Capillary refill brisk Procedures Date of Service Date of Service: 01/12/25 Progress Note: A&P Assessment and plan (1) Olecranon fracture: Status: Acute (2) Nondisplaced fracture of left patella: Status: Acute Plan Continue pain management Keep splint clean, dry, intact at all times Sling in place Should work on range of motion of the right wrist and hand Left knee immobilizer to be in place at all times Weight-bearing as tolerated in immobilizer Dispo planning-PT/OT eval pending, case management ASA for DVT prophylaxis for 6 weeks Time Spent With Patient Time: Total time managing care of this patient today ____ minutes. Quality Stroke Does the patient have a stroke diagnosis?: No VTE Prior VTE?: No VTE Risk Level:: Surgical - high VTE Device Contraindication: N/A - Device Ordered VTE Drug Contraindication: N/A - Med Ordered
--- NOTE | 2025-01-12 11:25 | HO.POSTANES ---
Post Anesthesia Evaluation Post Anesthesia Evaluation Date of Service: 01/12/25 Vital Signs: Vital Signs Temp Pulse Resp BP Pulse Ox O2 Del Method 01/12/25 07:28 97.9 F 73 16 129/62 96 Room Air 01/12/25 03:31 96.8 F 71 16 134/66 97 Room Air Anesthesia: Regional and General Mental Status: Awake Pain Control: Satisfactory Nausea/Vomiting: None Hydration: Adequate Anesthesia-Related Issues: No Anes. Related Issues
--- NOTE | 2025-01-12 11:57 | MHC.CM.PN ---
Addendum entered by Maria T Steiner 01/13/25 08:59: [facility] HAS ACCEPTED, THERAPY WILL START ON THURSDAY PT AND AWARE AND AGREEABLE. Original Note: PT LIVES AT HOME WITH HER AND IS INDEPENDENT AT BASELINE SHE IS USING A CANE NOW, BUT TYPICALLY DOES NOT REQUIRE DME OR SERVICES COPY OF HCP REQUESTED PCP: MIGUEL ÁNGEL FELDMAN PT AND AWARE PT WILL NEED VNA AT DC THEY DENY HAVING ANY PREFERENCES REGARDING AGENCY WILL TRANSPORT
--- NOTE | 2025-01-12 15:07 | P.DS_ITS ---
DS: Providers Provider Date of Service: 01/12/25 <CEZAR Duran - Last Filed: 01/12/25 15:37> Date of discharge: 01/13/25 <Twila Jimenez PA-C - Last Filed: 01/13/25 09:36> Primary care physician: Elaine Blackburn NP <CEZAR Duran - Last Filed: 01/12/25 15:37> Consults: 01/11/25 14:42 Consult to Case Management Routine Comment: STR Consult to Hospitalist Routine Comment: Consulting Provider: [facility] [place] Hospitalists Reason For Exam: Routine medical management <CEZAR Duran Last Filed: 01/12/25 15:37> DS: Diagnosis Discharge Diagnosis (1) Olecranon fracture: Status: Acute <CEZAR Duran Last Filed: 01/12/25 15:37> (2) Nondisplaced fracture of left patella: Status: Acute <CEZAR Duran Last Filed: 01/12/25 15:37> DS: Summary Hospital Course Hospital Course: The patient underwent a successful right elbow olecranon ORIF on 01/11/2025, was transferred to PACU and then to the floor to recover. During their stay, their vitals were stable, afebrile at . Labs were unremarkable, H/H . POD 1 she was started on aspirin 325 mg b.i.d. a day for DVT ppx, they also received Physical Therapy services. The plan was for the patient to be discharged home with VNA services. Right elbow olecranon ORIF: -Nonweightbearing right upper extremity -Elevate throughout the day -No lifting with the right upper extremity -Perform fist/finger exercises throughout the day -Do not bathe or shower--keep splint clean, dry and intact Take Percocet 5/325mg tabs 1 tab by mouth every 4-6 hours as needed Left knee nondisplaced patella fracture: -Remain in left knee immobilizer at all times -Weightbear as tolerated on the left lower extremity with the knee immobilizer in place -DO NOT BEND LEFT KNEE - Nondisplaced patella fracture Follow-up in our office on 01/19/2025 with Twila Jimenez PA-C at 09:30am <CEZAR Duran Last Filed: 01/12/25 15:37> Status at Discharge Cognitive/behavioral status at discharge: Stable for discharge <CEZAR Duran - Last Filed: 01/12/25 15:37> Time Attestation Discharge Coordination Time (in mins): 30 <CEZAR Duran - Last Filed: 01/12/25 15:37> Quality: Safe Use of Opioids Does Pt have an Active Cancer Diagnosis on the Problem List?: No <CEZAR Duran - Last Filed: 01/12/25 15:37> Quality: Stroke Does the patient have a stroke diagnosis?: No <CEZAR Duran - Last Filed: 01/12/25 15:37> Physical Exam Vital Signs: Vital Signs: Last Vital Signs Temp 97.9 F 01/12/25 07:28 Pulse 73 01/12/25 07:28 Resp 16 01/12/25 07:28 BP 129/62 01/12/25 07:28 Pulse Ox 96 01/12/25 07:28 O2 Del Method Room Air 01/12/25 07:28 O2 Flow Rate 2 01/11/25 14:22 BMI result Body Mass Index 24.0 <CEZAR Duran - Last Filed: 01/12/25 15:37> Extrem: Other: Right elbow: Splint clean, dry, intact. Able to flex and extend all digits. Able to abduct and adduct. Sensation intact. Radial pulse intact. Left knee: Immobilizer in place. Able to dorsiflex and plantar flex. Sensation intact. Pedal pulse intact. <Twila Jimenez PA-C - Last Filed: 01/13/25 09:36> DS: Data Data Completed and Pending Labs on day of discharge: Laboratory Results - last 24 hr 01/12/25 06:00 WBC 7.6 RBC 3.42 L Hgb 10.7 L Hct 32.0 L MCV 93.6 MCH 31.3 MCHC 33.4 RDW 13.7 Plt Count 302 MPV 9.0 L Immature Gran % (Auto) 0.4 Neut % (Auto) 89.0 H Lymph % (Auto) 4.9 L Garfield % (Auto) 5.3 Eos % (Auto) 0.1 Baso % (Auto) 0.3 Lymph # (Auto) 0.4 L Garfield # (Auto) 0.4 Eos # (Auto) 0.0 Baso # (Auto) 0.0 Abs Immat Gran (auto) 0.03 Absolute Neuts (auto) 6.7 Absolute Nucleated RBC 0.000 Nucleated RBC % (auto) 0.0 Sodium 142 Potassium 4.0 Chloride 110 H Carbon Dioxide 25 Anion Gap 11 L BUN 17 H Creatinine 0.67 Estim Creat Clear Calc 54.2 Estimated GFR > 60 Fasting Glucose 108 H Calcium 8.0 L <CEZAR Duran - Last Filed: 01/12/25 15:37> Discharge Plan Discharge Patient Disposition: Home Health Service <CEZAR Duran - Last Filed: 01/12/25 15:37> Referrals: Kassidy Lynne [Outside] - 3-5 Days Referral Note: services will start on Thursday01/16/25 Twila Jimenez PA-C [Physician Copy Lathe Tender, Orthopedics] - 01/19/25 9:30 am <CEZAR Duran - Last Filed: 01/12/25 15:37> Discharge Medications: New celecoxib 200 mg Capsule 200 mg PO BID 30 Days Qty: 60 0RF acetaminophen 325 mg Tablet 650 mg PO Q6H PRN (Reason: Pain, Mild 1-3,Fever,Headache) 30 Days Qty: 240 0RF aspirin 325 mg Tablet 325 mg PO BID 42 Days Qty: 84 0RF docusate sodium 100 mg Capsule 100 mg PO BID 30 Days Qty: 60 0RF oxycodone 5 mg Tablet 5 mg PO Q4H PRN (Reason: Pain, Moderate(Pain Scale 4-6)) 7 Days Qty: 42 0RF Rx Instructions: Partial Fill upon patient request. Continued cyanocobalamin (vitamin B-12) [Vitamin B-12] 1,000 mcg Tablet 1,000 mcg PO DAILY fluticasone propionate 50 mcg/actuation spray,suspension 1 spray intranasal DAILY PRN (Reason: Nasal Congestion) cholecalciferol (vitamin D3) [Vitamin D3] 10 mcg (400 unit) Tablet 10 mcg PO DAILY d-mannose 500 mg Capsule 500 mg PO DAILY losartan 50 mg tablet 50 mg PO DAILY famotidine 40 mg tablet 40 mg PO DAILY amlodipine 5 mg tablet 5 mg PO DAILY mirtazapine 15 mg tablet 15 mg PO BEDTIME Prolia 60 mg/mL syringe 60 mg subcut [id number] Held aspirin 81 mg Tablet,Delayed Release (Dr/Ec) 81 mg PO DAILY Hold Instructions: Resume on 02/10/25. Hold until discontinuation of full- dose aspirin <CEZAR Duran - Last Filed: 01/12/25 15:37> Discharge Orders: Discharge Order (Routine); Ordered 01/13/25 Ordered By: Twila Jimenez <CEZAR Duran - Last Filed: 01/12/25 15:37> Diet: Advance to usual diet <CEZAR Duran Last Filed: 01/12/25 15:37> Advance to usual diet <Twila Jimenez PA-C - Last Filed: 01/13/25 09:36> Activity on Discharge: Use Splints or Immobilizers <CEZAR Duran Last Filed: 01/12/25 15:37> Use Splints or Immobilizers <Twila Jimenez PA-C - Last Filed: 01/13/25 09:36> Activity Restrictions/Additional Instructions: Right elbow olecranon ORIF: -Nonweightbearing right upper extremity -Elevate throughout the day -No lifting with the right upper extremity -Perform fist/finger exercises throughout the day -Do not bathe or shower--keep splint clean, dry and intact Take Percocet 5/325mg tabs 1 tab by mouth every 4-6 hours as needed Left knee nondisplaced patella fracture: -Remain in left knee immobilizer at all times -Weightbear as tolerated on the left lower extremity with the knee immobilizer in place -DO NOT BEND LEFT KNEE - Nondisplaced patella fracture Follow-up in our office on 01/19/2025 with Twila Jimenez PA-C at 09:30am <CEZAR Duran Last Filed: 01/12/25 15:37> Print Language: Angolan <CEZAR Duran Last Filed: 01/12/25 15:37>
[2025-01-12 15:21] VITALS: BP 114/56; PULSE 62; RESP 14; TEMP 36.9; O2SAT 95
[2025-01-12] MEDS: 0.9 % Sodium Chloride Flush 3 ML SYRINGE IVFLUSH ×2 (16:07→19:38)
--- NOTE | 2025-01-12 16:09 | W.MHC.F2F ---
Service Date Service Date: 01/12/25 Encounter Date of encounter: 01/13/25 Reasons for Services Signs and symptoms assessed: Status post right elbow olecranon ORIF Pt. is considered homebound due to recent surgery. Unable to drive, poor balance, poor gait mechanics. Right elbow olecranon ORIF: -Nonweightbearing right upper extremity -Elevate throughout the day -No lifting with the right upper extremity -Perform fist/finger exercises throughout the day -Do not bathe or shower--keep splint clean, dry and intact Take Percocet 5/325mg tabs 1 tab by mouth every 4-6 hours as needed Left knee nondisplaced patella fracture: -Remain in left knee immobilizer at all times -Weightbear as tolerated on the left lower extremity with the knee immobilizer in place -DO NOT BEND LEFT KNEE - Nondisplaced patella fracture Follow-up in our office on 01/19/2025 with Twila Jimenez PA-C at 09:30am Reason for physical therapy: home safety and mobility, therapeutic exercises, restore joint function, gait/transfer training and ADL training Reason for occupational therapy: home safety and mobility, therapeutic exercises, restore joint function, gait/transfer training and ADL training Homebound: Leaving the home is medically contraindicated at this time without the asist of a device and/or another person due th the listed conditions above and below. Reason homebound: unsteady gait / fall risk, leg weakness, pain with ambulation, pain with transfers, poor balance / fall risk and unable to drive Certification: Based on the above findings, I certify that this patient is confined to the home and needs intermittent [facility] care, physical therapy and/or speech therapy, or continues to need occupational therapy. The patient is under my care, and I have initiated the establishment of the plan of care. The patient will be followed by a physician who will periodically review the plan of care. Time Spent With Patient Time: Total time managing care of this patient today ____ minutes.
--- NOTE | 2025-01-12 18:11 | PC.NURSE ---
Grimes removed around 1:45pm. Patient voided 300ml at 6:12pm with a PVR of 0ml
[2025-01-12 20:00] VITALS: BP 120/60; PULSE 59; RESP 18; TEMP 36.3; O2SAT 99
[2025-01-13] MEDS: Lactated Ringers 1,000 ML 100 ML IVCONT (03:08)
[2025-01-13 03:19] VITALS: BP 150/67; PULSE 74; RESP 20; TEMP 36.6; O2SAT 95
--- NOTE | 2025-01-13 04:24 | PC.NURSE ---
pt woke up confused and c/o needing to urinate - pt placed on commode. pt able to void 600 ml clear yellow urine. pt cont to be confused calling on phone reporting i fell out of bed . note; this bond writer and staff in room took pt to commode and back to bed with no fall in between. pt checked for pvr - showing 400ml, pt denies any need to urinate at this time, pt in room trying to get pt calm, pt and reports will try again to urinate. dr loivarez notified
--- NOTE | 2025-01-13 06:24 | PC.NURSE ---
pt on commode voided 300 ml, pvr shows 210. pt back in bed calm and cooperative with in room. will cont to monitor
[2025-01-13 06:28] LABS: MANUAL DIFF FLAG NO
[2025-01-13 06:32] LABS: Hematocrit 31.1 % (37.0-47.0); Hemoglobin 10.1 g/dl (12.0-16.0); Imm Gran Abs Auto 0.03 X10*3/uL (0.00-0.03); Imm Gran Pct Auto 0.5 % (0.0-0.4); Lymphocytes Absolute Auto 0.4 X10*3/uL (1.2-4.9); Mean Corpuscular HGB Conc 32.5 g/dl (31.0-35.0); Mean Corpuscular Hemoglobin 30.9 pg (27.0-33.0); Mean Corpuscular Volume 95.1 fL (80.0-98.0); NRBC Abs Auto 0.000 X10*3/uL (0.0-0.012); NRBC Pct Auto 0.0 /100WBC (0.0-0.2); Platelet Count 282 X10*3/uL (160-400); Red Blood Count 3.27 X10*6/uL (4.20-5.50); White Blood Count 5.8 X10*3/uL (4.8-10.8)
[2025-01-13 06:49] LABS: Anion Gap 11 (12-20); Blood Urea Nitrogen 14 mg/dL (9-16); Calcium 7.7 mg/dL (8.4-10.2); Carbon Dioxide 24 mmol/L (22-29); Chloride 108 mmol/L (96-108); Creatinine Clr Calc Pharmacy 50.4; Estimated Glomerular Filt Rate > 60; Potassium 4.0 mmol/L (3.3-5.1); Sodium 139 mmol/L (135-145)
[2025-01-13] MEDS: oxyCODONE HCl Immed Release 5 MG TABLET PO ×2 (07:29→10:57)
[2025-01-13] MEDS: Cholecalciferol (Vitamin D3) 10 MCG TABLET PO (07:30)
[2025-01-13] MEDS: 0.9 % Sodium Chloride Flush 3 ML SYRINGE IVFLUSH (07:30)
[2025-01-13 07:34] VITALS: BP 146/66; PULSE 73; RESP 16; TEMP 36.7; O2SAT 93
--- NOTE | 2025-01-13 10:20 | MHC.CM.PN ---
pt dcd today benito notified dc summary and f2f sent to same
[2025-01-13 11:15] VITALS: BP 131/67; PULSE 75; RESP 16; TEMP 36.4; O2SAT 95
--- NOTE | 2025-01-16 16:03 | P.OP_ITS ---
Operative Note Operative Note Date of Service: 01/11/25 Narrative: Date of Service: 01/11/25 Pre-op diagnosis: Displaced Olecranon fracture Post-op diagnosis: same Procedure: ORIF right Olecranon fracture Implants: Smoaks locking plate Surgeon: Blair Gutierrez MD Anesthesia: GETA Was an Printed Forms Proofreader used for this Procedure?: Yes Printed Forms Proofreader: Twila Jimenez Estimated blood loss (mL): 50 IV fluids (mL): 750 Pathology: none sent Condition: stable Disposition: PACU Patient was brought to the operating room and placed in the left lateral decubitus position on the surgical table. Her right arm was placed on a well- padded armboard. All bony prominences were well padded. The site was prepped and draped in standard sterile fashion and a time out was called to identify proper site, proper procedure and IV antibiotics per weight were administered. I began by making a midline incision over the olecranon and proximal forearm. Sharp dissection was taken down to the bone and the proximal displaced olecranon fragment was visualized. Distally the ulnar shaft was dissected posteriorly and a sharp tenaculum was used to provisionally reduce the fracture. Prior to this the fracture fragments were cleaned out. I selected a 4 hole olecranon plate. With the fracture reduced I dissected the triceps out midline to be able to place the plate on bone proximally. I then used 2 locking screws through the proximal fragment and then placed a nonlocking compression screw through the proximal hole of the distal fragment. This reduce the fracture near anatomically although there was still some comminution. Biplanar fluoroscopy was used to confirm reduction and hardware placement. Three additional screws were placed in the distal fragment and 1 home run screw was placed across the fracture. Again fluoro was used to confirm plate alignment and fracture reduction. I was satisfied with these parameters and I copiously irrigated and closed with absorbable suture, skin glue and Steri-Strips. Patient was placed in sterile dressing and extubated brought to recovery room stable condition there were no known complications.
== END 2025-01-13 11:41 | disposition home health service (06) ==
LOC: HO.SSS 08:24 → HO.S3 11:33
PROVIDERS: Physician Assistant; PCP Nurse Practitioner Family; Visit Provider Orthopaedic Surgery
PROC: (CPT 24685; principal; 2025-01-11 11:00)
DX: S52.021A Displaced fracture of olecranon process without intraarticular extension of right ulna, initial encounter for closed fracture (principal); M25.521 Pain in right elbow; S82.035A Nondisplaced transverse fracture of left patella, initial encounter for closed fracture; M25.562 Pain in left knee; W01.0XXA Fall on same level from slipping, tripping and stumbling without subsequent striking against object, initial encounter; Y93.01 Activity, walking, marching and hiking; Y92.89 Other specified places as the place of occurrence of the external cause; Y99.9 Unspecified external cause status; R26.81 Unsteadiness on feet; F39 Unspecified mood [affective] disorder; I10 Essential (primary) hypertension; M81.0 Age-related osteoporosis without current pathological fracture; G89.29 Other chronic pain; I73.00 Raynaud's syndrome without gangrene; M54.9 Dorsalgia, unspecified; I89.0 Lymphedema, not elsewhere classified; K21.9 Gastro-esophageal reflux disease without esophagitis; Z79.82 Long term (current) use of aspirin; Z79.83 Long term (current) use of bisphosphonates; Z79.899 Other long term (current) drug therapy; Z88.1 Allergy status to other antibiotic agents; Z88.5 Allergy status to narcotic agent; Z88.8 Allergy status to other drugs, medicaments and biological substances; Z98.890 Other specified postprocedural states
CPT/HCPCS: 24685; 36415; 80048; 85025; 97116; 97162; 97530; C1713; J0131; J0665; J0736; J1100; J2003; J2405; J2704; J3010; J7120

== ENCOUNTER → 2025-01-11 08:23 | Outpatient (BNV) | payer MEDICARE, SELFPAY | PROVIDERS: PCP Nurse Practitioner Family; Visit Provider Student in an Organized Health Care Education/Training Program | DX: S52.023A Displaced fracture of olecranon process without intraarticular extension of unspecified ulna, initial encounter for closed fracture (principal) | CPT/HCPCS: 99223 ==

== ENCOUNTER → 2025-01-11 08:23 | Outpatient (BNV) | payer MEDICARE, SELFPAY | PROVIDERS: PCP Nurse Practitioner Family; Visit Provider Orthopaedic Surgery | DX: S52.023A Displaced fracture of olecranon process without intraarticular extension of unspecified ulna, initial encounter for closed fracture (principal); S82.002A Unspecified fracture of left patella, initial encounter for closed fracture | CPT/HCPCS: 24685; 99024; G0180 ==

== ENCOUNTER 2025-01-19 09:24 | Outpatient (AMB) | payer MEDICARE, SELFPAY ==
--- OUTSIDE RECORDS SUMMARY | 2024-07-20 05:30 | XMS_ITS ---
Author Organization Kb Asher III, MD Address [address] [place] [address] Care Team Providers Care Laundry Pricing Clerk Name Role Phone Mery GALO, [place] Primary Care Provider Kb Cook Unavailable [phone] Allergies Allergen (clinical drug ingredient) Drug/Non Drug [...] amLODIPine Besylate 5 MG (Prior Auth: Rx Ref#:[id number]) Oral Active Eliquis 5 MG as directed Orally Active Social History Tobacco Use: Social History Observation Description Date Details (start date - stop date) Never Smoker NA - NA Tobacco Use/Smoking Question Answer Notes Patient is a nonsmoker Additional Findings: Tobacco Non-User Aggressive non-smoker Problems Problem Type SNOMED Code ICD Code Onset Dates Problem Status W/U Status Risk Notes Problem 9310119 Former smoker (Z87.891) Active confirmed She has [...] Date Provider Diagnosis Kb Asher III, MD [address] [place] [address] DR VELIZSARAH, YOLANDA [address] 07/20/2024 Kb Asher Ovarian sarcoma, unspecified laterality [...] symptoms are mild and well controlled with vtab-tje-jfaikpp medication. No change in her regimen is necessary. 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 07/20/2024 Gastrointestinal hemorrhage, unspecified gastrointestinal hemorrhage type (ICD-10 - K92.2) She gives a history of episodic bleeding. Causes unclear and she is not aware of it. She has been referred to a surgeon at [facility] to evaluate this and also a [...] amLODIPine Besylate 5 MG (Prior Auth: Rx Ref#:[id number]) Oral Eliquis 5 MG as directed Orally Next Appt Details Follow Up: 1 Year, Reason: o v Provider Name:Kb Asher, 07/13/2025 10:00:00 AM, [address] [place] [address] GISELA CORONADO, [place], [address], Progress Notes * Moriah ASHLEY ADOB:1939 (84 yo F)Acc No.[id number]:07/20/2024 Progress Notes Patient: Moriah FISHER Provider: Florencio Asher MD :1940 A ge:84 Y S ex:Female Date:07/20/2024 Address:[address] [place], [place] [id number] Pcp:Chavez Ordonez MD Subjective: * Chief Complaints: * H istory of ovarian sarcomaHistory of DVTHistory of gastrointestinal hemorrhage * HPI: C OVID-19 Screening: 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 She was treated with resection followed by adjuvant radiation therapy. He has been compliant with follow-up by FRONT DESK MONITOR. She has had no new complaints since [...] ggressive non-smoker S he was born in [place], [place]. She is to [place]avez for many years. * Medications: T akingVitamin B 12 100 MCG Lozenge as directed Orally once a day Acamprosate Calcium 333 MG Tablet Delayed Release 3 tablets Orally once aday Losartan Potassium 50 MG Tablet 1 tablet Orally Once a day amLODIPine Besylate 5 MG Tablet (Prior Auth: Rx Ref#:[id number]) Oral Eliquis 5 MG Tablet as directed [...] Besylate 5 MG Tablet (Prior Auth: Rx Ref#:[id number]) Oral Taking Eliquis 5 MG Tablet as [...] symptoms are mild and well controlled with qwsn-wml-tkpkvey medication. No change in her regimen is necessary. 3 . I leus of unspecified type - K56.7 4 . A symptomatic postsurgical menopause - E89.40 N otes :She remains under the care of memorial designer and primary care physician. 5 . G astrointestinal hemorrhage, unspecified gastrointestinal hemorrhage type - K92.2 N otes :She gives a history of episodic bleeding. Causes unclear and she is not aware of it. She has been referred to a surgeon at [facility] to evaluate this and also a [...] 07/20/2024 Generated for Mario burton/Michael/Joceitting on: 0 01/19/2025 11:01 AM EDT History and Physical Notes * [...]
--- NOTE | 2025-01-19 09:57 | A.OFFVIS_ITS ---
Intake Visit Reasons: PO RT elbow ORIF 01/11/25 NE Intake Note: Moriah is a 84 year old female who presents today for a post op appointment for her right elbow ORIF 01/11/25 NE. Patient reports she is not having much pain today. Patient is in a knee immobilizer and a sling. Allergies oxycodone Allergy (Intermediate, Verified 01/19/25 10:10) Nausea amoxicillin Allergy (Unknown, Verified 01/19/25 10:10) Unknown clavulanic acid (From Augmentin) Allergy (Unknown, Verified 01/19/25 10:10) Unknown methenamine Allergy (Unknown, Verified 01/19/25 10:10) Unknown nirmatrelvir (From Paxlovid) Allergy (Unknown, Verified 01/19/25 10:10) Unknown nitrofurantoin Allergy (Unknown, Verified 01/19/25 10:10) Unknown ritonavir (From Paxlovid) Allergy (Unknown, Verified 01/19/25 10:10) Unknown lisinopril Adverse Reaction (Intermediate, Verified 01/19/25 10:10) Cough HPI HPI PO RT elbow ORIF 01/11/25 NE: Details: Ms. Zacarias an 84-year-old female who presents to the office today for follow-up status post right elbow ORIF performed on 01/11/[address] Gutierrez as well as a left nondisplaced patella fracture. She reports overall she has been doing very well. She has been weight-bearing as tolerated with the immobilizer on the left lower extremity. She has been splinted in a posterior long arm splint on the right in his wearing a sling as appropriate. She denies any pain. She does not have any concerns at this time. [facility] Medical History Subclinical hypothyroidism RLS (restless legs syndrome) Raynauds disease Prolonged QT interval Radiation proctitis Peripheral neuropathy Osteoporosis LVH (left ventricular hypertrophy) Leukopenia Insomnia Compression fracture of vertebra Ovarian cancer Small bowel obstruction Dupuytren contracture Fatty liver Chronic back pain Celiac artery stenosis Acquired lymphedema Hypertension Surgical History History of gastric surgery Social History Household Members: Spouse Housing: [facility] Do you presently have visiting nurse or other home services: No Comment: COUNTS CORRECT Patient Tobacco Use Status: Never used Tobacco Second Hand Smoke Exposure: No service: No Current occupational status: retired Review of Systems Const All systems reviewed & are unremarkable except as noted in HPI and below Physical Exam Const General: cooperative, healthy appearing and no acute distress Resp Effort & Inspection: normal respiratory effort and able to speak in complete sentences Extrem Other: Right elbow incision site is c/d/i. kade intact. No surrounding erythema or drainage. No signs of infection. Able to flex and extend at the wrist. Sensation reportedly intact. Radial pulse intact. Left knee skin clean dry and intact. No range of motion was attempted today as she has a nondisplaced patellar fracture. Sensation reportedly intact. Able to dorsiflex and plantar flex. NVI. Psych Appearance: grossly normal Mental Status: mental status grossly normal Attitude: cooperative Assessment & Plan Assessment & Plan (1) Olecranon fracture: Code(s): S52.023A - Displaced fracture of olecranon process without intraarticular extension of unspecified ulna, initial encounter for closed fracture Category: Medical (2) Nondisplaced fracture of left patella: Code(s): S82.002A - Unspecified fracture of left patella, initial encounter for closed fracture Category: Medical Plan Ms. Zacarias an 84-year-old female who presents to the office today for follow-up status post right elbow ORIF performed on 01/11/[address] Gutierrez as well as a left nondisplaced patella fracture. She reports overall she has been doing very well. She has been weight-bearing as tolerated with the immobilizer on the left lower extremity. She has been splinted in a posterior long arm splint on the right in his wearing a sling as appropriate. She denies any pain. She does not have any concerns at this time. While in the office today, the right elbow long-arm posterior splint was removed for a wound check. The incision site is clean dry and intact with no surrounding erythema, skin breakdown or signs of infection. Xeroform as well as gauze, Kerlix and an Sen wrap was placed over the incision site. She was then placed in a range of motion elbow brace off the shelf her range of motion locked 0-70 degrees. She will remain nonweightbearing right upper extremity. She will remain in the elbow brace at all times except for showering in which she will protect range of motion of the right elbow. For the patient's left nondisplaced patellar fracture she was placed into an ACL brace locked from 0-30 degrees. She may continue to weightbear as tolerated on the left lower extremity. Brace should remain on at all times except for bathing in which she will keep the leg in extension and protected. A physical therapy and occupational therapy prescription was placed in the office today with the above [id number] restrictions and bracing instructions as well as weight-bearing status as mentioned above. She will follow up in 1 week with anticipation of staple removal, sooner if needed. X-rays of the right elbow which were obtained while in the office today and were reviewed by Twila black PA-C, revealed intact orthopedic hardware with routine healing. X-rays of the left knee which were obtained while in the office today and were reviewed by Twila black PA-C, revealed minimally displaced left patellar fracture with routine healing. Orders: Orders XR knee LT 2V Today Anjana Austin PA-C M25.562 - Pain in left knee PT Evaluation and Treatment Today Twila Jimenez PA-C S82.002A - Unspecified fracture of left patella, initial encounter for closed fracture XR elbow RT min 3V Today Anjana Austin PA-C M25.521 - Pain in right elbow OT Evaluation and Treatment Today Twila Jimenez PA-C S52.023A - Displaced fracture of olecranon process without intraarticular extension of unspecified ulna, initial encounter for closed fracture Coding Level of Care Code Global (03388) Diagnoses Olecranon fracture S52.023A Nondisplaced fracture of left patella S82.002A
--- OUTSIDE RECORDS SUMMARY | 2025-01-19 11:00 | XMS_ITS | Patient Health Record ---
Author Organization Kb Asher III, MD Address [address] [address] Care Team Providers Care Document Clerk Name Role Phone Mery GALO, Chavez Primary Care Provider Kb Cook Unavailable [phone] Allergies Allergen (clinical drug ingredient) Drug/Non Drug [...] amLODIPine Besylate 5 MG (Prior Auth: Rx Ref#:[id number]) Oral Active Eliquis 5 MG as directed [...] Problem Status W/U Status Risk Notes Problem 1451109 Former smoker (Z87.891) Active confirmed She has a plan to prevent relapse in times of stress and illness. Problem 31168106 Hiatal hernia (K44.9) Active confirmed Her symptoms are mild and well controlled with wmrg-irl-jlcf ter medication. No change in her regimen is necessary. 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 His free of disease. She will be seen once a year. 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 Problem 56235826 Gastrointestinal hemorrhage, unspecified gastrointestinal hemorrhage type (K92.2) Active confirmed She gives a history of episodic bleeding. Causes unclear and she is not aware of it. She has been referred to a surgeon at [facility] to evaluate this and also a possible small bowel obstruction episode. Problem 295719982374 Acute deep vein thrombosis (DVT) of calf [...] Date Provider Diagnosis Kb Asher III, MD [address] [place] [address] DR VILLARREAL, YOLANDA [address] 07/20/2024 Kb Asher Ovarian sarcoma, unspecified laterality [...] symptoms are mild and well controlled with aioy-idb-jvazfdk medication. No change in her regimen is [...] E89.40) She remains under the care of slot host and primary care physician. 07/20/2024 Gastrointestinal hemorrhage, unspecified gastrointestinal hemorrhage type (ICD-10 - K92.2) She gives a history of episodic bleeding. Causes unclear and she is not aware of it. She has been referred to a surgeon at [facility] to evaluate this and also a possible small bowel obstruction episode. 07/20/2024 Former smoker (ICD-1 0 - Z87.891) She has a plan to prevent relapse in times of stress and illness. Plan Of Treatment Next Appt Details Provider Name:Kb Asher, 07/13/2025 10:00:00 AM, [address] [place] [address] GISELA CORONADO, [place], [address], Insurance Providers Payer Name Payer Address Payer Phone Subscriber Number Group Number Insured Name Patient Relationship to Insured Coverage Start Date Coverage End Date [facility] [address] [place], [place] [id number] [phone] [id number] Moriah Zacarias Self - patient is the insured Medical (General) History Medical History History ICD Code [id number] menopause between ages 52 and 54 In 1975 she was hospitalized for a sheba ite obtained in [place]. 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
--- OUTSIDE RECORDS SUMMARY | 2025-01-19 11:01 | XMS_ITS | Encounter Summary ---
Author Organization [facility] Address [address] [address] Phone Care Team Providers Care Rare/Endangered Species Specialist Name Role Phone Pcp, Unknown Primary Care Provider Elaine Manning NP Primary Care Provider [phone] Reason for Referral * Physical Therapy (Routine) - Closed Specialty Diagnoses / Procedures Referred By Contariana t Referred To Contact Physical Therapy Diagnoses Encounter for rehabilitation Shay Baker MD [address] [place] [address] Phone: tel: fax: [email or web address] [address] [place] [address] Phone: tel: Referral ID Status Reason Start Date Expiration Date Visits Re quested Visits Authorized [id number] Closed 08/06/2023 2024 99 99 Encounter Details Date Type Department Care Team (Latest Contact Info) Description 08/06/2023 Transcribe Orders [facility] [address] [place] [address] Shay Baker MD [address] [place] [address] [email or web address] Encounter for rehabilitation (Primary Dx) Social History [...] Date/Time Associated Diagnosis Comments AMB REFERRAL TO [facility] PHYSICAL THERAPY Routine 10/28/2023 10:13 AM EDT Encounter for rehabilitation documented in this encounter Results * Ambulatory referral to [facility] Physical Therapy (10/28/2023 10:13 AM EDT) Other us Shay Baker MD AMB [facility] REFERRALS Final R esult documented in this encounter Visit Diagnoses Diagnosis Encounter for rehabilitation- Primary documented in this encounter Care Teams Rare/Endangered Species Specialist Relationship Specialty Start Date End Date Pcp, Unknown PCP - General 08/04/23 11/01/23 Elaine Blackburn NP [address] [place] [address] PCP - General Nurse Practitioner 11/02/23 documented as of this encounter Additional Source Comments The information contained in this document represents components of the legal health record. It is not the complete legal health record.[facility]
--- OUTSIDE RECORDS SUMMARY | 2025-01-19 11:01 | XMS_ITS | Encounter Summary ---
Author Organization [facility] Address [address] [place] [address] Phone Care Team Providers Care Assembler Skylights Name Role Phone BereElaine NP Primary Care Provider [phone] Encounter Details Date Type Department Care Team (Late st Contact Info) Description 12/20/2024 Orders Only [facility] [address] [place] [address] Provider, MD Lara [address] [place] [address] Social History Tobacco Use Types Packs/Day [...] on filedocumented in this encounter Care Teams Assembler Skylights Relationship Specialty Start Date End Date Bere, CORRIE Henry [address] [place] [address] PCP - General Nurse Practitioner 11/02/23 documented as of this encounter Additional Source Comments The information contained in this document represents components of the legal health record. It is not the complete legal health record.[facility]
--- OUTSIDE RECORDS SUMMARY | 2025-01-19 11:01 | XMS_ITS | Clinical Summary ---
Author Organization [facility] Address [address] [place] [address] Phone Care Team Providers Care Wafer Production Lead Worker Name Role Phone Elaine Blackburn NP Primary Care Provider [phone] Allergies No known active allergies Medications No known medications Active Problems No known active problems Encounters Date Type Department Care Team Description 01/12/2025 Orders Only [facility] [address] [place] [id number] Homehealth, Interface ProviderMD 12/22/2024 Ancillary Orders [facility],Outside Imaging [address] [place] [address] Unknown, Nirav, 12/20/2024 12:00 PM EDT Office Visit [facility] [address] [place] [address] Alvin Tyson, GAB Primary osteoarthritis of left knee (Primary Dx) 12/20/2024 Orders Only [facility] [address] [place] [address] Provider, MD Lara from Last 3 Months Social History Tobacco [...] OUTSIDE IMAGING Routine 12/20/2024 4:10 PM EDT from Last 3 Months Results * Outside Imaging Report Only (12/20/2024 4:10 PM EDT) us Historical Provider MD LOPEZ XR CHEST Final Res ult from Last 3 Months Insurance [place]IC[place] PPO BLUE [place] [address] [place] [address] MEDICARE PPO BLUE [place] [address] [place] [address] MEDICARE PPO BLUE REPLACEMENT Member Subscriber Plan / Payer (Ef fective 2003-Present) Name:Moriah Zacarias Relation to Subscriber:Self Name:Moriah Zacarias Payer ID:[id number] (NAIC) Type:Medicare Address: [facility] [id number], [place] [address] MEDICARE PPO BLUE REPLACEMENT [place] BL[place] Care Teams Wafer Production Lead Worker Relationship Specialty Start Date End Date Elaine [place] [place] [address] PCP - General Nurse Practitioner 11/02/23 Additional Source Comments The information contained in this document represents components of the legal health record. It is not the complete legal health record.[facility]
== END 2025-01-19 11:25 | disposition home or self-care (01) ==
LOC: HO.HOS 09:25
PROVIDERS: PCP Nurse Practitioner Family; Visit Provider Physician Assistant
DX: S52.023A Displaced fracture of olecranon process without intraarticular extension of unspecified ulna, initial encounter for closed fracture (principal); S82.002A Unspecified fracture of left patella, initial encounter for closed fracture
CPT/HCPCS: 99024

== ENCOUNTER 2025-01-19 09:24 | Outpatient (REF) | payer MEDICARE, SELFPAY ==
--- NOTE | ~2025-01-19 | XR_ITS ---
EXAMINATION: XR KNEE, LEFT CLINICAL INFORMATION: M25.562 - Pain in left knee COMPARISON: 01/04/2025. TECHNIQUE: AP and lateral views of the left knee. FINDINGS: Transverse patellar fracture with minimal distraction measuring 5 mm. This is stable and unchanged. No gross healing evident at this time. Fracture lines still well defined. No additional fracture or focal bone lesion. There is normal alignment of the knee. Mild tricompartmental joint space narrowing, most notable medial compartment. There is persistent but improving anterior soft tissue swelling. There is no significant joint effusion. XR/XR knee LT 2V IMPRESSION: Stable transverse minimally distracted patellar fracture without change. Electronically signed by: Alejandro Hinojosa MD 01/19/2025 10:07 AM EDT
--- NOTE | ~2025-01-19 | XR_ITS ---
EXAMINATION: XR ELBOW 3 VIEWS RIGHT HISTORY: M25.521 - Pain in right elbow COMPARISON: Comparison is made with the prior examination dated 01/04/2025. FINDINGS: Three views of the right elbow are submitted. Osseous mineralization is normal. The patient is status post internal fixation of the previously seen comminuted fracture of the olecranon process of the ulna with a side plate and multiple orthopedic screws. The joint spaces are preserved. The soft tissues are unremarkable. XR/XR elbow RT min 3V IMPRESSION: Internal fixation of the previously seen comminuted fracture of the olecranon process of the ulna. Electronically signed by: Kb Cartwright MD 01/19/2025 10:04 AM EDT
== END 2025-01-19 09:25 | disposition home or self-care (01) ==
LOC: HO.HOSX 09:24
PROVIDERS: PCP Nurse Practitioner Family; Visit Provider Physician Assistant
DX: S52.023D Displaced fracture of olecranon process without intraarticular extension of unspecified ulna, subsequent encounter for closed fracture with routine healing (principal); S82.002D Unspecified fracture of left patella, subsequent encounter for closed fracture with routine healing; X58.XXXD Exposure to other specified factors, subsequent encounter
CPT/HCPCS: 73080; 73560; 99212

== ENCOUNTER → 2025-01-19 09:40 | Outpatient (BNV) | payer MEDICARE, SELFPAY | PROVIDERS: PCP Nurse Practitioner Family; Visit Provider Radiology Diagnostic Radiology | DX: M25.521 Pain in right elbow (principal); S82.032 Displaced transverse fracture of left patella | CPT/HCPCS: 73080; 73560 ==

== ENCOUNTER 2025-01-26 12:45 | Outpatient (AMB) | payer MEDICARE, SELFPAY ==
--- OUTSIDE RECORDS SUMMARY | 2024-07-20 05:30 | XMS_ITS ---
Author Organization Kb Asher III, MD Address [address] [place] [address] Care Team Providers Care Fisher Eel Spear Name Role Phone Mery GALO, Chavez Primary [...] amLODIPine Besylate 5 MG (Prior Auth: Rx Ref#:[id number]) Oral Active Eliquis 5 MG as directed Orally Active Social History Tobacco Use: Social History Observation Description Date Details (start date - stop date) Never Smoker NA - NA Tobacco Use/Smoking Question Answer Notes Patient is a nonsmoker Additional Findings: Tobacco Non-User Aggressive non-smoker Problems Problem Type SNOMED Code ICD Code Onset Dates Problem Status W/U Status Risk Notes Problem 6576505 Former smoker (Z87.891) Active confirmed She has [...] Date Provider Diagnosis Kb Asher III, MD [address] [place] [address] DR VELIZSARAH, YOLANDA [address] 07/20/2024 Kb Asher Ovarian sarcoma, unspecified laterality [...] symptoms are mild and well controlled with orrs-wqn-ayfvvbf medication. No change in her regimen is necessary. 07/20/2024 Ileus of unspecified type (ICD-10 - K56.7) 07/20/2024 Asymptomatic postsurgical menopause (ICD-10 - E89.40) She remains under the care of quiller machine fixer and primary care physician. 07/20/2024 Gastrointestinal hemorrhage, unspecified gastrointestinal hemorrhage type (ICD-10 - K92.2) She gives a history of episodic bleeding. Causes unclear and she is not aware of it. She has been referred to a surgeon at [facility] to evaluate this and also a possible [...] amLODIPine Besylate 5 MG (Prior Auth: Rx Ref#:[id number]) Oral Eliquis 5 MG as directed Orally Next Appt Details Follow Up: 1 Year, Reason: o v Provider Name:Kb Asher , 07/13/2025 10:00:00 AM, [address] [place] [address], [address], Progress Notes * Moriah ASHLEY ADOB:1939 (84 yo F)Acc No.[id number]:07/20/2024 Progress Notes Patient: Moriah FISHER Provider: Florencio Asher MD :1940 A ge:84 Y S ex:Female Date:07/20/2024 Address:[address] [place], [place] [phone] Pcp:Chavez Ordonez MD Subjective: * Chief Complaints: * H istory of ovarian sarcomaHistory of DVTHistory of gastrointestinal hemorrhage * HPI: C OVID-19 Screening: 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 She was treated with resection followed by adjuvant radiation therapy. He has been compliant with follow-up by INSURANCE LICENSING SUPERVISOR. She has had no new complaints since [...] ggressive non-smoker S he was born in [place], [place]. She is to Chavez for many years. * Medications: T akingVitamin B 12 100 MCG Lozenge as directed Orally once a day Acamprosate Calcium 333 MG Tablet Delayed Release 3 tablets Orally once aday Losartan Potassium 50 MG Tablet 1 tablet Orally Once a day amLODIPine Besylate 5 MG Tablet (Prior Auth: Rx Ref#:[id number]) Oral Eliquis 5 MG Tablet as directed [...] Besylate 5 MG Tablet (Prior Auth: Rx Ref#:[id number]) Oral Taking Eliquis 5 MG Tablet as [...] symptoms are mild and well controlled with megu-htu-jkkqnpz medication. No change in her regimen is necessary. 3 . I leus of unspecified type - K56.7 4 . 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 5 . G astrointestinal hemorrhage, unspecified gastrointestinal hemorrhage type - K92.2 N otes :She gives a history of episodic bleeding. Causes unclear and she is not aware of it. She has been referred to a surgeon at [facility] to evaluate this and also a possible [...] 07/20/2024 Generated for Mario burton/Michael/Joceitting on: 0 01/26/2025 05:32 PM EDT History and Physical Notes * [...]
--- NOTE | 2025-01-26 13:01 | MHC.OFFVIS ---
Vital Signs 01/26/25 13:07 Height 5 ft 5 in Weight 143 lb BMI 23.8 Intake Visit Reasons: PO RT elbow ORIF 01/11/25 NE-staple removal Intake Note: Moriah is a 84 year old female who presents today for a post op appointment for her right elbow ORIF 01/11/25 NE. Patient reports she is having some swelling in her right hand. Patient is wondering if there is something she could do to help with the swelling. Accompanied by: Spouse Allergies oxycodone Allergy (Intermediate, Verified 01/26/25 13:02) Nausea amoxicillin Allergy (Unknown, Verified 01/26/25 13:02) Unknown clavulanic acid (From Augmentin) Allergy (Unknown, Verified 01/26/25 13:02) Unknown methenamine Allergy (Unknown, Verified 01/26/25 13:02) Unknown nirmatrelvir (From Paxlovid) Allergy (Unknown, Verified 01/26/25 13:02) Unknown nitrofurantoin Allergy (Unknown, Verified 01/26/25 13:02) Unknown ritonavir (From Paxlovid) Allergy (Unknown, Verified 01/26/25 13:02) Unknown lisinopril Adverse Reaction (Intermediate, Verified 01/26/25 13:02) Cough HPI HPI PO RT elbow ORIF 01/11/25 NE-staple removal: Details: Ms. Zacarias is an 84-year-old female who presents to the office today for routine follow-up status post left elbow ORIF performed on 01/11/[address] Gutierrez. Patient has been in the elbow brace as appropriate with range of motion 0-70 degrees as discussed with Dr. Gutierrez at her prior visit. Additionally, she presents wearing a left knee immobilizer weight-bearing as tolerated on the left lower extremity for a patella fracture. Left knee range of motion restrictions 0-30 degrees. [facility] Medical History Subclinical hypothyroidism RLS (restless legs syndrome) Raynauds disease Prolonged QT interval Radiation proctitis Peripheral neuropathy Osteoporosis LVH (left ventricular hypertrophy) Leukopenia Insomnia Compression fracture of vertebra Ovarian cancer Small bowel obstruction Dupuytren contracture Fatty liver Chronic back pain Celiac artery stenosis Acquired lymphedema Hypertension Surgical History History of gastric surgery Social History Household Members: Spouse Housing: Condominium Do you presently have visiting nurse or other home services: No Comment: COUNTS CORRECT Patient Tobacco Use Status: Never used Tobacco Second Hand Smoke Exposure: No service: No Current occupational status: retired Review of Systems Const All systems reviewed & are unremarkable except as noted in HPI and below Assessment & Plan Assessment & Plan (1) Nondisplaced fracture of left patella: Code(s): S82.002A - Unspecified fracture of left patella, initial encounter for closed fracture Category: Medical (2) Olecranon fracture: Code(s): S52.023A - Displaced fracture of olecranon process without intraarticular extension of unspecified ulna, initial encounter for closed fracture Category: Medical Plan Ms. Zacarias is an 84-year-old female who presents to the office today for routine follow-up status post left elbow ORIF performed on 01/11/[address] Gutierrez. Patient has been in the elbow brace as appropriate with range of motion 0-70 degrees as discussed with Dr. Gutierrez at her prior visit. Additionally, she presents wearing a left knee immobilizer weight-bearing as tolerated on the left lower extremity for a patella fracture. Left knee range of motion restrictions 0-30 degrees. While in the office today, the kade were removed from the right elbow and Steri-Strips were applied. The area was padded with an ABD and Sen wrap. Patient was placed back into the elbow zgrfs-xq-qgyohm brace. Extension at 0 degrees flexion to 60 degrees. She will continue working with physical therapy and increase 10 degrees of flexion per week in the ROM brace with active assisted range of motion. In regards to the left knee, range of motion may continue 0-30 degrees and increase range of motion by 10 degrees each week as it has been 4 weeks since the date of injury. She may continue to weightbear as tolerated in the knee brace. I have provided the patient with a print off physical therapy prescription order that she can hand to the [facility]NA for instructions. I would like to see the patient back in 4 weeks with repeat x-rays of the right elbow and left knee, sooner if needed. Orders: Orders PT Evaluation and Treatment Today S52.023A - Displaced fracture of olecranon process without intraarticular extension of unspecified ulna, initial encounter for closed fracture, S82.002A - Unspecified fracture of left patella, initial encounter for closed fracture Coding Level of Care Code Global (60503) Diagnoses Nondisplaced fracture of left patella S82.002A Olecranon fracture S52.023A
[2025-01-26 13:07] VITALS: BMI 23.8
--- OUTSIDE RECORDS SUMMARY | 2025-01-26 17:32 | XMS_ITS | Patient Health Record ---
Author Organization Kb Asher III, MD Address [address] [place] [address] [place] [address] Care Team Providers Care Ramp Boss Name Role Phone Mery GALO, Chavez Primary Care Provider Dr. Kb Cook III Unavailable [phone] Allergies Allergen (clinical drug ingredient) Drug/Non Drug [...] amLODIPine Besylate 5 MG (Prior Auth: Rx Ref#:[id number]) Oral Active Eliquis 5 MG as directed [...] Problem Status W/U Status Risk Notes Problem 8545818 Former smoker (Z87.891) Active confirmed She has a plan to prevent relapse in times of stress and illness. Problem 42760297 Hiatal hernia (K44.9) Active confirmed Her symptoms are mild and well controlled with jids-auq-uzsb ter medication. No change in her regimen is necessary. 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 His free of disease. She will be seen once a year. 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 Problem 61367003 Gastrointestinal hemorrhage, unspecified gastrointestinal hemorrhage type (K92.2) Active confirmed She gives a history of episodic bleeding. Causes unclear and she is not aware of it. She has been referred to a surgeon at [facility] to evaluate this and also a possible small bowel obstruction episode. Problem [id number] Acute deep vein thrombosis (DVT) of calf [...] Provider Diagnosis Kb Asher III, MD [address] [place] [address] DR [place], YOLANDA [address] 07/20/2024 Kb Asher Ovarian sarcoma, unspecified laterality [...] symptoms are mild and well controlled with ikti-hwv-fwkzbic medication. No change in her regimen is [...] E89.40) She remains under the care of trash truck driver and primary care physician. 07/20/2024 Gastrointestinal hemorrhage, unspecified gastrointestinal hemorrhage type (ICD-10 - K92.2) She gives a history of episodic bleeding. Causes unclear and she is not aware of it. She has been referred to a surgeon at [facility] to evaluate this and also a possible small bowel obstruction episode. 07/20/2024 Former smoker (ICD-1 0 - Z87.891) She has a plan to prevent relapse in times of stress and illness. Plan Of Treatment Next Appt Details Provider Name:Kb Asher , 07/13/2025 10:00:00 AM, [address] [place] [address] [address], [address], [place], [address], Insurance Providers Payer Name Payer Address Payer Phone Subscriber Number Group Number Insured Name Patient Relationship to Insured Coverage Start Date Coverage End Date [facility] [address] [place], [place] [id number] [phone] [id number] Moriah Zacarias Self - patient is the insured Medical (General) History Medical History History ICD Code [id number] menopause between ages 52 and 54 In 1975 she was hospitalized for a sheba ite obtained in [place]. 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
--- OUTSIDE RECORDS SUMMARY | 2025-01-26 17:32 | XMS_ITS | Encounter Summary ---
Author Organization [facility] Address [address] [address] Phone Care Team Providers Care Building Insulation Supervisor Name Role Phone Pcp, Unknown Primary Care Provider Elaine Manning NP Primary Care Provider [phone] Reason for Referral * Physical Therapy (Routine) - Closed Specialty Diagnoses / Procedures Referred By Contariana t Referred To Contact Physical Therapy Diagnoses Encounter for rehabilitation Shay Baker MD [address] [place] [address] Phone: tel: fax: [email or web address] [place] [address] Phone: tel: Referral ID Status Reason Start Date Expiration Date Visits Re quested Visits Authorized [id number] Closed 08/06/2023 2024 99 99 Encounter Details Date Type Department Care Team (Latest Contact Info) Description 08/06/2023 Transcribe Orders [facility] [address] [place] [address] Shay Baker MD [address] [place] [address] [email or web address] Encounter for rehabilitation (Primary Dx) Social History [...] Date/Time Associated Diagnosis Comments AMB REFERRAL TO [facility] PHYSICAL THERAPY Routine 10/28/2023 10:13 AM EDT Encounter for rehabilitation documented in this encounter Results * Ambulatory referral to [facility] Physical Therapy (10/28/2023 10:13 AM EDT) Other us Shay Baker MD AMB [facility] REFERRALS Final R esult documented in this encounter Visit Diagnoses Diagnosis Encounter for rehabilitation- Primary documented in this encounter Care Teams Building Insulation Supervisor Relationship Specialty Start Date End Date Pcp, Unknown PCP - General 08/04/23 11/01/23 Elaine Blackburn NP [address] [place] [address] PCP - General Nurse Practitioner 11/02/23 documented as of this encounter Additional Source Comments The information contained in this document represents components of the legal health record. It is not the complete legal health record.[facility]
--- OUTSIDE RECORDS SUMMARY | 2025-01-26 17:32 | XMS_ITS | Clinical Summary ---
Author Organization [facility] Address [address] [place] [address] Phone Care Team Providers Care Heel Builder Machine Name Role Phone Elaine Blackburn NP Primary Care Provider [phone] Allergies No known active allergies Medications No known medications Active Problems No known active problems Encounters Date Type Department Care Team Description 01/12/2025 Orders Only [facility] [address] [place] [phone] Homehealth, Interface Provider, 12/22/2024 Ancillary Orders [facility],Outside Imaging [address] [place] [address] Unknown, Nirav, 12/20/2024 12:00 PM EDT Office Visit [facility] [address] [place] [address] Alvin Tyson, GAB Primary osteoarthritis of left knee (Primary Dx) 12/20/2024 Orders Only [facility] [address] [place] [address] Provider, MD Lara from Last 3 Months [...] [place] PPO [place]UE [place] [address] [place] [address] MED[address] [address] [place] [address] MEDICARE PPO BLUE REPLACEMENT Member Subscriber Plan / Payer (Ef fective 2003-Present) Name:Moriah Zacarias Relation to Subscriber:Self Name:Moriah Zacarias Payer ID:[id number] (NAIC) Type:Medicare Address: [facility] [id number] [place], [place] [address] MEDICARE PPO BLUE REPLACEMENT [place] BL[place] BL[place]PLACEMENT Care Teams Heel Builder Machine Relationship Specialty Start Date End Date Elaine [place]burn [place] [address] PCP - General Nurse Practitioner 11/02/23 Additional Source Comments The information contained in this document represents components of the legal health record. It is not the complete legal health record.[facility]
== END 2025-01-26 13:57 | disposition home or self-care (01) ==
LOC: HO.HOS 12:46
PROVIDERS: PCP Nurse Practitioner Family; Visit Provider Physician Assistant
DX: S82.002A Unspecified fracture of left patella, initial encounter for closed fracture (principal); S52.023A Displaced fracture of olecranon process without intraarticular extension of unspecified ulna, initial encounter for closed fracture
CPT/HCPCS: 99024

== ENCOUNTER → 2025-01-26 12:45 | Outpatient (BNVA) | payer MEDICARE, SELFPAY | PROVIDERS: PCP Nurse Practitioner Family; Visit Provider Physician Assistant | DX: Z48.02 Encounter for removal of sutures (principal); R22.31 Localized swelling, mass and lump, right upper limb; Z98.890 Other specified postprocedural states; S82.002D Unspecified fracture of left patella, subsequent encounter for closed fracture with routine healing; S52.021D Displaced fracture of olecranon process without intraarticular extension of right ulna, subsequent encounter for closed fracture with routine healing | CPT/HCPCS: 99212 ==

== ENCOUNTER 2025-02-24 08:04 | Outpatient (REF) | payer MEDICARE, SELFPAY ==
--- OUTSIDE RECORDS SUMMARY | 2024-07-20 05:30 | XMS_ITS ---
Author Organization Kb Asher III, MD Address [address] [place] [address] Care Team Providers Care Silk Screen Processor Name Role Phone Mery GALO, Chavez Primary Care Provider Dr. Kb Cook III Unavailable Allergies Allergen (clinical drug ingredient) Drug/Non Drug Allergy documented on EMR Reaction Allergy Type Onset Date Status amoxicillin / clavulanate Augmentin Unknown Drug Allergy Active amoxicillin Amoxicillin Rash Drug Allergy Act adalberto acetaminophen / oxycodone Percocet nausea/ hives Drug Allergy Active REASON FOR VISIT History of ovarian sarcoma, History of DVT, History of gastrointestinal hemorrhage Medications Medication SIG (Take, Route, Frequency, Duration) Notes Start Date End Date Status Vitamin D 1000 UNIT 1 tablet Orally Once a day Active Acamprosate Calcium 333 MG 3 tablets Ora lly once aday Active Losartan Potassium 50 MG 1 tablet Orally Once a day Active Vitamin B 12 100 MCG as directed Orally once a day Active Calcium 150 MG as directed Orally Active Aspirin 81 81 MG 1 tablet Orally Once a day Active amLODIPine Besylate 5 MG (Prior Auth: Rx Ref#:[id number]) Oral Active Eliquis 5 MG as directed Orally Active Social History Tobacco Use: Social History Observation Description Date Details (start date - stop date) Never Smoker NA - NA Tobacco Use/Smoking Question Answer Notes Patient is a nonsmoker Additional Findings: Tobacco Non-User Aggressive non-smoker Problems Problem Type SNOMED Code ICD Code Onset Dates Problem Status W/U Status Risk Notes Problem 7833132 Former smoker (Z87.891) Active confirmed She has a plan to prevent relapse in times of stress and illness. 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 His free of disease. She will be seen once a year. 07/20/2024 Hiatal hernia (ICD-1 0 - K44.9) Her symptoms are mild and well controlled with gqnh-uuv-vjpjrjz medication. No change in her regimen is necessary. 07/20/2024 Ileus of unspecified type (ICD-10 - K56.7) 07/20/2024 Asymptomatic postsurgical menopause (ICD-10 - E89.40) She remains under the care of tool and die assembler and primary care physician. 07/20/2024 Gastrointestinal hemorrhage, unspecified gastrointestinal hemorrhage type (ICD-10 - K92.2) She gives a history of episodic bleeding. Causes unclear and she is not aware of it. She has been referred to a surgeon at [facility] to evaluate this and also a possible small bowel obstruction episode. 07/20/2024 Former smoker (ICD-1 0 - Z87.891) She has a plan to prevent relapse in times of stress and illness. Plan Of Treatment Medication Medication Name Sig Start Date Stop Date Notes Vitamin D 1000 UNIT 1 tablet Orally Once a day Acamprosate Calcium 333 MG 3 tablets Orally once aday Losartan Potassium 50 MG 1 tablet Orally Once a day Vitamin B 12 100 MCG as directed Orally once a day Calcium 150 MG as directed Orally Aspirin 81 81 MG 1 tablet Orally Once a day amLODIPine Besylate 5 MG (Prior Auth: Rx Ref#:[id number]) Oral Eliquis 5 MG as directed Orally Next Appt Details Follow Up: 1 Year, Reason: o v Provider Name:Kb Asher , 07/13/2025 10:00:00 AM, [address] [place] [address], [address], Progress Notes * Moriah ASHLEY ADOB:1939 (84 yo F)Acc No.[id number]:07/20/2024 Progress Notes Patient: Moriah FISHER Provider: Florencio Asher MD :1940 A ge:84 Y S ex:Female Date:07/20/2024 Address:[address] [place], [place] [id number] Pcp:Chavez Ordonez MD Subjective: * Chief Complaints: * H istory of ovarian sarcomaHistory of DVTHistory of gastrointestinal hemorrhage * HPI: C OVID-19 Screening: 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 She was treated with resection followed by adjuvant radiation therapy. He has been compliant with follow-up by AUTOMOTIVE PARTS ADVISOR. She has had no new complaints since her last visit. He denies any new problems. She has had no further blood clots. Questions H ave you had any new onset fever, chills, cough, congestion, sore throat, shortness of breath, muscle aches? N o * ROS: G eneral/Constitutional: pain o nly normal aches and pains. C hills d enies.?Fatigue a dmits. F ever d enies. E NT: Decreased hearing d enies. R espiratory: Cough d enies. C ardiovascular: Chest pain with exertion d enies. D yspnea on exertion?denies. S hortness of breath d enies. G astrointestinal: Constipation o ccasional. D ecreased appetite d enies. D iarrhea d enies. H eartburn c ontrolled with medications. N ausea d enies. R ectal bleeding d enies. V omiting d enies. H ematology: bruising d enies. p etechiae d enies. S wollen glands n one have been noted. G enitourinary: Frequent urination d enies. M usculoskeletal: Muscle aches d enies. P [...] ggressive non-smoker S he was born in [place], [place]. She is to Chavez for many years. * Medications: T akingVitamin B 12 100 MCG Lozenge as directed Orally once a day Acamprosate Calcium 333 MG Tablet Delayed Release 3 tablets Orally once aday Losartan Potassium 50 MG Tablet 1 tablet Orally Once a day amLODIPine Besylate 5 MG Tablet (Prior Auth: Rx Ref#:[id number]) Oral Eliquis 5 MG Tablet as directed Orally Aspirin 81 81 MG Tablet Delayed Release 1 tablet Orally Once a day Vitamin D 1000 UNIT Tablet 1 tablet Orally Once a day Calcium 150 MG Tablet as directed Orally Medication List reviewed and reconciled with the patientTaking Vitamin B 12 100 MCG Lozenge as directed Orally once a day Taking Acamprosate Calcium 333 MG Tablet Delayed Release 3 tablets Orally once aday Taking Losartan Potassium 50 MG Tablet 1 tablet Orally Once a day Taking amLODIPine Besylate 5 MG Tablet (Prior Auth: Rx Ref#:[id number]) Oral Taking Eliquis 5 MG Tablet as directed Orally Taking Aspirin 81 81 MG Tablet Delayed Release 1 tablet Orally Once a day Taking Vitamin D 1000 UNIT Tablet 1 tablet Orally Once a day Taking Calcium 150 MG Tablet as directed Orally Medication List reviewed and reconciled with the patient * Allergies: P ercocet: nausea/ hives - Side EffectsAmoxicillin: DavidAuari[Allergies Verified] Objective: * Vitals: H t: 64, Wt:149, BMI:25.57, BP:138/78, HR:78, Temp:97.7, Wt-k.59. * Examination: G eneral Examination: GENERAL APPEARANCE: p leasant, well nourished, well developed, in no acute distress, calm and relaxed, overweight, woman. HEAD: a traumatic, normocephalic. EYES: e [...] LUNGS: c lear to auscultation . BREASTS: no masses palpable bilaterally. ABDOMEN: b owel sounds normal, no ascites, no organomegaly, no mass, overweight. RECTAL EXAM: n ot examined. MUSCULOSKELETAL: e xtremities unremarkable, no clubbing, cyanosis or edema. PERIPHERAL PULSES: n ormal. NEUROLOGIC: a lert and oriented, cranial nerves 2-12 grossly intact, deep tendon reflexes 2+ symmetrical, motor strength normal upper and lower extremities, sensory exam intact. PSYCH: a lert, oriented. Assessment: * Assessment: 1. 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 His free of disease. She will be seen once a year. 2 . H iatal hernia - K44.9 N otes :Her symptoms are mild and well controlled with jzhq-evk-reamttq medication. No change in her regimen is necessary. 3 . I leus of unspecified type - K56.7 4 . 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 5 . G astrointestinal hemorrhage, unspecified gastrointestinal hemorrhage type - K92.2 N otes :She gives a history of episodic bleeding. Causes unclear and she is not aware of it. She has been referred to a surgeon at [facility] to evaluate this and also a possible small bowel obstruction episode. 6 . F ormer smoker - Z87.891 N otes :She has a plan to prevent relapse in times of stress and illness. Plan: * Treatment: 2. O thers Continue Aspirin 81 Tablet Delayed Release, 81 MG, 1 tablet, Orally, Once a day; C ontinue Vitamin D Tablet, 1000 UNIT, 1 tablet, Orally, Once a day; C ontinue Calcium Tablet, 150 MG, as directed, Orally. * Procedure Codes: * Preventive Medicine: Counseling: C are goal follow-up plan: Counseling for abnormal BMI given Y es Above Normal BMI Follow-up D ietary management education, guidance, and counseling S moking/Tobacco Use Patient counseled on the dangers of tobacco use and urged to quit. 0 07/20/2024 * Follow Up: 1 Year (Reason: ov) * Images: * Sign off status: Completed true * Provider: Florencio Asher MD Date: 0 07/20/2024 Generated for Mario burton/Michael/Joceitting on: 1 08:12 AM EDT History and Physical Notes * HPI (History of Present Illness) Category Sub-Category Detail Notes COVID-19 Screening Questions Have you had any new onset fever, chills, cough, congestion, sore throat, shortness of breath, muscle aches?: No Examination Category Sub-Category Detail Notes General Examination GENERAL APPEARANCE: pleasant , well nourished, well developed, in no acute distress, calm and relaxed, overweight, woman HEAD: atraumatic, normocep halic EYES: eomi, perrla, anicte ascencion, conjugate EARS: normal NOSE: septum intact NECK/THYROID: no jugular venous di stention, no carotid bruit, thyroid normal HEART: no clicks, gallops, murmurs, or rubs, regular rhythm, S1, S2 normal, no s3, or vascular bruits LUNGS: clear to auscultatio n ABDOMEN: bowel sounds normal, no ascites, no organomegaly, no mass, overweight NEUROLOGIC: alert and oriented, cranial nerves 2-12 grossly intact, deep tendon reflexes 2+ symmetrical, motor strength normal upper and lower extremities, sensory exam intact SKIN: no suspicious lesion s, anicteric PERIPHERAL PULSES: normal BREASTS: no masses palpable b ilaterally MUSCULOSKELETAL: extremities unremark able, no clubbing, cyanosis or edema LYMPH NODES: no enlarged lymph no hermes,spleen normal RECTAL EXAM: not examined PSYCH: alert, oriented ORAL CAVITY: normal, unremarkable
--- NOTE | ~2025-02-24 | XR_ITS ---
EXAMINATION: XR KNEE, LEFT CLINICAL INFORMATION: M25.569 - Pain in unspecified knee COMPARISON: January 19, 2025. TECHNIQUE: AP view in standing position both knees. Lateral and sunrise view of the left knee. FINDINGS: There is a transverse oriented to the fracture through the patella with persistent 2.6 mm gap between the fragments. No periosteal bone reaction or callus formation. There is joint space narrowing involving mostly the medial compartments of the knees with sclerosis along the articular surface of the tibial plateau. No gross suprapatellar bursa joint effusion, left knee. . XR/XR elbow RT min 3V IMPRESSION: Nonunion fracture, patella. Medial compartment osteoarthrosis/osteoarthritis, bilaterally. EXAMINATION: XR ELBOW, RIGHT CLINICAL INFORMATION: M25.569 - Pain in unspecified knee COMPARISON: January 19, 2025 TECHNIQUE: AP, lateral, and oblique views of the right elbow. FINDINGS: Intact metallic plate placed along the dorsal aspect of proximal ulna extending from the olecranon to the proximal diaphysis. There is a persistent 1.4 mm gap between the fragments of the olecranon fracture without periosteal bone reaction or callus formation. The distal humerus is intact. The radial head is intact. There is normal alignment. No joint effusion. No subcutaneous emphysema. IMPRESSION: Status post open reduction and internal fixation of an olecranon fracture without gross healing. Electronically signed by: José Borden MD 02/24/2025 09:16 AM EDT
--- NOTE | ~2025-02-24 | XR_ITS ---
EXAMINATION: XR KNEE, LEFT CLINICAL INFORMATION: M25.569 - Pain in unspecified knee COMPARISON: January 19, 2025. TECHNIQUE: AP view in standing position both knees. Lateral and sunrise view of the left knee. FINDINGS: There is a transverse oriented to the fracture through the patella with persistent 2.6 mm gap between the fragments. No periosteal bone reaction or callus formation. There is joint space narrowing involving mostly the medial compartments of the knees with sclerosis along the articular surface of the tibial plateau. No gross suprapatellar bursa joint effusion, left knee. . XR/XR knee LT 3V IMPRESSION: Nonunion fracture, patella. Medial compartment osteoarthrosis/osteoarthritis, bilaterally. EXAMINATION: XR ELBOW, RIGHT CLINICAL INFORMATION: M25.569 - Pain in unspecified knee COMPARISON: January 19, 2025 TECHNIQUE: AP, lateral, and oblique views of the right elbow. FINDINGS: Intact metallic plate placed along the dorsal aspect of proximal ulna extending from the olecranon to the proximal diaphysis. There is a persistent 1.4 mm gap between the fragments of the olecranon fracture without periosteal bone reaction or callus formation. The distal humerus is intact. The radial head is intact. There is normal alignment. No joint effusion. No subcutaneous emphysema. IMPRESSION: Status post open reduction and internal fixation of an olecranon fracture without gross healing. Electronically signed by: José Borden MD 02/24/2025 09:16 AM EDT
--- OUTSIDE RECORDS SUMMARY | 2025-02-27 08:11 | XMS_ITS | Patient Health Record ---
Author Organization Kb Asher III, MD Address [address] [place] [address] [place] [address] Care Team Providers Care Pediatric Nurse Practitioner Name Role Phone Mery GALO, Chavez Primary Care Provider Dr. 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 Problem 81479785 Hiatal hernia (K44.9) Active confirmed Her symptoms are mild and well controlled with yixr-yvx-aobo ter medication. No change in her regimen is necessary. 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 His free of disease. She will be seen once a year. 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 Problem 63574853 Gastrointestinal hemorrhage, unspecified gastrointestinal hemorrhage type (K92.2) Active confirmed She gives a history of episodic bleeding. Causes unclear and she is not aware of it. She has been referred to a surgeon at [facility] to evaluate this and also a possible small bowel obstruction episode. Problem [id number] Acute deep vein thrombosis (DVT) of calf [...] Date Provider Diagnosis Kb Asher III, MD [address] [place] [address] DR [place], YOLANDA [id number] 07/20/2024 Kb Asher Ovarian sarcoma, unspecified laterality [...] symptoms are mild and well controlled with trxg-xqz-xgppmyv medication. No change in her regimen is [...] E89.40) She remains under the care of audograph operator and primary care physician. 07/20/2024 Gastrointestinal hemorrhage, unspecified gastrointestinal hemorrhage type (ICD-10 - K92.2) She gives a history of episodic bleeding. Causes unclear and she is not aware of it. She has been referred to a surgeon at [facility] to evaluate this and also a possible small bowel obstruction episode. 07/20/2024 Former smoker (ICD-1 0 - Z87.891) She has a plan to prevent relapse in times of stress and illness. Plan Of Treatment Next Appt Details Provider Name:Kb Asher , 07/13/2025 10:00:00 AM, [address] [place] [address] DR, [address], [place], [address], Insurance Providers Payer Name Payer Address Payer Phone Subscriber Number Group Number Insured Name Patient Relationship to Insured Coverage Start Date Coverage End Date [facility] [address] [place], [place] [id number] [phone] [id number] Moriah Zacarias Self - patient is the insured Medical (General) History Medical History History ICD Code [id number] menopause between ages 52 and 54 In 1975 she was hospitalized for a sheba ite obtained in [place]. 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
--- OUTSIDE RECORDS SUMMARY | 2025-02-27 08:11 | XMS_ITS | Encounter Summary ---
Author Organization [facility] Address [address] [address] Phone Care Team Providers Care Telesales Specialist Name Role Phone Pcp, Unknown Primary Care Provider Elaine Manning NP Primary Care Provider [phone] Reason for Referral * Physical Therapy (Routine) - Closed Specialty Diagnoses / Procedures Referred By Contariana t Referred To Contact Physical Therapy Diagnoses Encounter for rehabilitation Shay Baker MD [email or web address] [place] [address] Phone: tel: fax: mailto:[email or web address] [email or web address] [address] [place] [address] Phone: tel: Referral ID Status Reason Start Date Expiration Date Visits Re quested Visits Authorized [id number] Closed 08/06/2023 2024 99 99 Encounter Details Date Type Department Care Team (Latest Contact Info) Description 08/06/2023 Transcribe Orders [facility] [address] [place] [address] Shay Baker MD [email or web address] [place] [address] [email or web address] Encounter for rehabilitation (Primary Dx) Social History [...] Date/Time Associated Diagnosis Comments AMB REFERRAL TO [facility] PHYSICAL THERAPY Routine 10/28/2023 10:13 AM EDT Encounter for rehabilitation documented in this encounter Results * Ambulatory referral to [facility] Physical Therapy (10/28/2023 10:13 AM EDT) Other us Shay Baker MD AMB [facility] REFERRALS Final R esult documented in this encounter Visit Diagnoses Diagnosis Encounter for rehabilitation- Primary documented in this encounter Care Teams Telesales Specialist Relationship Specialty Start Date End Date Pcp, Unknown PCP - General 08/04/23 11/01/23 Elaine Blackburn NP [address] [place] [address] PCP - General Nurse Practitioner 11/02/23 documented as of this encounter Additional Source Comments The information contained in this document represents components of the legal health record. It is not the complete legal health record.[facility]
--- OUTSIDE RECORDS SUMMARY | 2025-02-27 08:12 | XMS_ITS | Clinical Summary ---
Author Organization [facility] Address [address] [place] [address] Phone Care Team Providers Care Microfabrication Engineer Manager Name Role Phone Elaine Blackburn NP Primary Care Provider [phone] Allergies No known active allergies Medications No known medications Active Problems No known active problems Encounters Date Type Department Care Team Description 01/12/2025 Orders Only [facility] [address] [place] [id number] Homehealth, Interface Provider, 12/22/2024 Ancillary Orders [facility] [place],Outside Imaging [address] [place] [address] Unknown, Nirav, 12/20/2024 12:00 PM EDT Office Visit [facility] [address] [place] [address] Alvin Tyson, GAB Primary osteoarthritis of left knee (Primary Dx) 12/20/2024 Orders Only [facility] [address] [place] [address] Provider, MD Lara from Last 3 Months [...] [place] BLUE [place]PLACEMENT [address] [address] [address] MEDICARE PPO BLUE [place] [address] MEDICARE PPO BLUE REPLACEMENT Member Subscriber Plan / Payer (Ef fective 2003-Present) Name:Moriah Zacarias Relation to Subscriber:Self Name:Moriah Zacarias Payer ID:[id number] (NAIC) Type:Medicare Address: [facility] [id number] [place], [place] [address] MEDICARE PPO BLUE [place]AC[place] BL[place] Care Teams Microfabrication Engineer Manager Relationship Specialty Start Date End Date [place] [address] PCP - General Nurse Practitioner 11/02/23 Additional Source Comments The information contained in this document represents components of the legal health record. It is not the complete legal health record.[facility]
--- OUTSIDE RECORDS SUMMARY | 2025-03-15 20:00 | XMS_ITS | Clinical Summary ---
Author Organization Unknown Care Team Providers Care Playground Equipment Erector Name Role Phone FRANCIA RECOVERY COORDINATOR, MIGUEL ÁNGEL Unavailable Unavailable LAISA GANDHI, LEIDY Unavailable Unavailsheri YOUNG RN, DEBBIE Unavailable Unavailable DENI PT, CHUCKY Unavailable Unavailable Payers Payer Name Policy Type Policy Number Effective Date Expira tion Date [place] - ORDER DRIVEN [id number] MEDICARE - NGS [place] - PDGM [id number] Problems Condition Name Condition Details Condition Category Status Onset Date Resolution Date Last Treatment Date Treating Clinician Comments AGE-REL OSTEOPOR W CRNT PATH FX, R FOREARM, 7THD Active 05-04 00:00: 00 AGE-REL OSTEOPOR W CRNT PATH FX, L LOW LEG, 7THD Active 05-04 00:00: 00 UNSPECIFIED ATRIAL FIBRILLATION Active 05-04 00:00: 00 GASTRO-ESOPH AGEAL REFLUX DISEASE WITHOUT ESOPHAGITIS Active 05-04 00:00: 00 RESTLESS LEGS SYNDROME Active 05-04 00:00: 00 RAYNAUD'S SYNDROME WITHOUT GANGRENE Active 05-04 00:00: 00 POLYNEUROPAT HY, UNSPECIFIED Active 05-04 00:00: 00 INSOMNIA, UNSPECIFIED Active 05-04 00:00: 00 FATTY (CHANGE OF) LIVER, NOT ELSEWHERE CLASSIFIED Active 05-04 00:00: 00 LYMPHEDEMA, NOT ELSEWHERE CLASSIFIED Active 05-04 00:00: 00 OTHER SPECIFIED HYPOTHYROIDI SM Active 05-04 00:00: 00 HYPERTENSIVE HEART DISEASE WITHOUT HEART FAILURE Active 05-04 00:00: 00 MEDICAL COLLECTIONS REPRESENTATIVE (CURRENT) USE OF ASPIRIN Active 05-04 00:00: 00 SKILLED NURSING (CURRENT) USE OF NON-STEROIDA L NON-INFLAM (NSAID) Active 05-04 00:00: 00 Problems related to health literacy Active 05-04 00:00: 00 OTHER SKILLED NURSING (CURRENT) DRUG THERAPY Active 05-04 00:00: 00 Allergies, Adverse Reactions, Alerts Allergy Name Allergy Type Status Severity Reaction(s) Onset Date Inactive Date Treating Clinician Comments LISINOPRIL Propensity to adverse reactions Active 01-16 12:16: 30 OXYCODONE Propensity to adverse reactions Active 01-16 12:16: 48 CLAVULANIC Propensity to adverse reactions Active 01-16 12:17: 45 NITROFURANTO IN Propensity to adverse reactions Active 01-16 12:17: 57 METHENAMINE Propensity to adverse reactions Active 01-16 12:18: 16 AMOXICILLIN Propensity to adverse reactions Active 01-16 12:18: 25 RITONAVIR Propensity to adverse reactions Active 01-16 12:18: 32 NIRMALTREVIR Propensity to adverse reactions Active 01-17 15:39: 37 Medications Ordered Medication Name Filled Medication Name Start Date Stop Date Current Medication? Ordering Clinician Indication Dosage Frequency Signature (SIG) Comments Components amlodipine 5 mg tablet 12-15 00:00: 00 Yes [id number] 1 tablet DAILY 1 tablet DAILY (route: oral) Med Classific ation: Cardiovas cular Therapy Agents acetaminoph en 325 mg tablet 01-16 00:00: 00 Yes [id number] 2 tablet EVERY 6 HOURS 2 tablet EVERY 6 HOURS (route: oral) Med Classific ation: Analgesic , Anti-infl ammatory or Antipyret ic aspirin 325 mg tablet,jerri yed release 01-16 00:00: 00 Yes [id number] 1 tablet 2 TIMES DAILY 1 tablet 2 TIMES DAILY (route: oral) Med Classific ation: Analgesic , Anti-infl ammatory or Antipyret ic B12 Active 1,000 mcg chewable tablet 01-16 00:00: 00 Yes [id number] 1 tablet DAILY 1 tablet DAILY (route: oral) Med Classific ation: Electroly te Balance-N utritiona l Products docusate sodium 100 mg capsule 01-16 00:00: 00 Yes [id number] 1 capsule 2 TIMES DAILY 1 capsule 2 TIMES DAILY (route: oral) Med Classific ation: Gastroint estinal Therapy Agents famotidine 40 mg tablet 01-16 00:00: 00 Yes [id number] 1 tablet DAILY 1 tablet DAILY (route: oral) Med Classific ation: Gastroint estinal Therapy Agents fluticasone propionate 50 mcg/actuati on nasal spray,suspe nsion 01-16 00:00: 00 Yes [id number] 1 spray DAILY 1 spray DAILY (route: nasal) Med Classific ation: Respirato ry Therapy Agents losartan 50 mg tablet 01-16 00:00: 00 Yes [id number] 1 tablet DAILY 1 tablet DAILY (route: oral) Med Classific ation: Cardiovas cular Therapy Agents mirtazapine 15 mg tablet 01-16 00:00: 00 Yes [id number] 1 tablet BEDTIME 1 tablet BEDTIME (route: oral) Med Classific ation: Central Nervous System Agents oxycodone 5 mg tablet 01-16 00:00: 00 Yes [id number] 1 tablet EVERY 4-6 HOURS NEEDED 1 tablet EVERY 4-6 HOURS NEEDED (route: oral) Med Classific ation: Analgesic , Anti-infl ammatory or Antipyret ic Prolia 60 mg/mL subcutaneou s syringe 01-16 00:00: 00 Yes [id number] Per instruc tions DIRECTED Per instructio ns DIRECTED (route: subcutaneo us) Med Classific ation: Endocrine Vitamin D3 50 mcg (2,000 unit) capsule 01-16 00:00: 00 Yes [id number] 2 capsule DAILY 2 capsule DAILY (route: oral) Med Classific ation: Electroly te Balance-N utritiona l Products celecoxib 200 mg capsule 01-16 00:00: 00 Yes [id number] 1 capsule 2 TIMES DAILY 1 capsule 2 TIMES DAILY (route: oral) Med Classific ation: Analgesic , Anti-infl ammatory or Antipyret ic Vital Signs Vital Name Observation Time Observation Value Commen ts Temperature 2025-02-20 13:21:00.000 98 [degF] Temperature 2025-02-17 10:20:00.000 96.7 [degF] Temperature 2025-02-13 09:35:00.000 97.4 [degF] Temperature 2025-02-10 10:12:00.000 96.9 [degF] Temperature 2025-02-06 10:31:00.000 97 [degF] Temperature 2025-02-03 10:18:00.000 96.7 [degF] Temperature 2025-02-01 09:15:00.000 98.2 [degF] Temperature 2025-01-31 09:55:00.000 97.6 [degF] Temperature 2025-01-27 10:21:00.000 96.6 [degF] Temperature 2025-01-24 09:17:00.000 97 [degF] Temperature 2025-01-20 09:41:00.000 97.7 [degF] Temperature 2025-01-20 09:19:00.000 97.7 [degF] Temperature 2025-01-16 12:52:00.000 96.9 [degF] BMI (%) 2025-01-16 13:00:00.000 23 kg/m2 Height 2025-01-16 13:00:00.000 65 [in_us] Pulse 2025-02-21 09:10:00.000 74 /min Pulse 2025-02-20 13:21:00.000 76 /min Pulse 2025-02-17 10:20:00.000 60 /min Pulse 2025-02-16 15:00:00.000 78 /min Pulse 2025-02-13 09:35:00.000 76 /min Pulse 2025-02-10 10:12:00.000 86 /min Pulse 2025-02-09 11:29:00.000 70 /min Pulse 2025-02-07 09:52:00.000 78 /min Pulse 2025-02-06 10:31:00.000 74 /min Pulse 2025-02-03 10:18:00.000 64 /min Pulse 2025-02-01 09:15:00.000 60 /min Pulse 2025-01-31 09:55:00.000 76 /min Pulse 2025-01-27 10:21:00.000 60 /min Pulse 2025-01-24 09:17:00.000 76 /min Pulse 2025-01-20 09:41:00.000 74 /min Pulse 2025-01-20 09:19:00.000 74 /min Pulse 2025-01-16 12:52:00.000 74 /min O2 Saturation (%) 2025-02-21 09:10:00.000 98 % O2 Saturation (%) 2025-02-20 13:21:00.000 97 % O2 Saturation (%) 2025-02-17 10:20:00.000 98 % O2 Saturation (%) 2025-02-16 15:00:00.000 97 % O2 Saturation (%) 2025-02-13 09:35:00.000 97 % O2 Saturation (%) 2025-02-10 10:12:00.000 97 % O2 Saturation (%) 2025-02-09 11:29:00.000 99 % O2 Saturation (%) 2025-02-07 09:52:00.000 98 % O2 Saturation (%) 2025-02-06 10:31:00.000 97 % O2 Saturation (%) 2025-02-03 10:18:00.000 95 % O2 Saturation (%) 2025-02-01 09:15:00.000 100 % O2 Saturation (%) 2025-01-31 09:55:00.000 97 % O2 Saturation (%) 2025-01-27 10:21:00.000 95 % O2 Saturation (%) 2025-01-24 09:17:00.000 97 % O2 Saturation (%) 2025-01-20 09:41:00.000 98 % O2 Saturation (%) 2025-01-20 09:19:00.000 98 % O2 Saturation (%) 2025-01-16 12:52:00.000 97 % Respirations 2025-02-20 13:21:00.000 18 /min Respirations 2025-02-17 10:20:00.000 18 /min Respirations 2025-02-13 09:35:00.000 18 /min Respirations 2025-02-10 10:12:00.000 18 /min Respirations 2025-02-06 10:31:00.000 18 /min Respirations 2025-02-03 10:18:00.000 18 /min Respirations 2025-01-31 09:55:00.000 18 /min Respirations 2025-01-27 10:21:00.000 18 /min Respirations 2025-01-24 09:17:00.000 18 /min Respirations 2025-01-20 09:41:00.000 16 /min Respirations 2025-01-20 09:19:00.000 18 /min Respirations 2025-01-16 12:52:00.000 16 /min Weight (lbs) 2025-01-16 13:00:00.000 143.3 [lb_av] Systolic Blood Pressure 2025-02-21 09:10:00.000 118 mm [Hg] Systolic Blood Pressure 2025-02-20 13:21:00.000 132 mm [Hg] Systolic Blood Pressure 2025-02-17 10:20:00.000 120 mm [Hg] Systolic Blood Pressure 2025-02-16 15:00:00.000 128 mm [Hg] Systolic Blood Pressure 2025-02-13 09:35:00.000 132 mm [Hg] Systolic Blood Pressure 2025-02-10 10:12:00.000 116 mm [Hg] Systolic Blood Pressure 2025-02-09 11:29:00.000 130 mm [Hg] Systolic Blood Pressure 2025-02-07 09:52:00.000 122 mm [Hg] Systolic Blood Pressure 2025-02-06 10:31:00.000 120 mm [Hg] Systolic Blood Pressure 2025-02-03 10:18:00.000 114 mm [Hg] Systolic Blood Pressure 2025-02-01 09:15:00.000 122 mm [Hg] Systolic Blood Pressure 2025-01-31 09:55:00.000 128 mm [Hg] Systolic Blood Pressure 2025-01-27 10:21:00.000 110 mm [Hg] Systolic Blood Pressure 2025-01-24 09:17:00.000 132 mm [Hg] Systolic Blood Pressure 2025-01-20 09:41:00.000 122 mm [Hg] Systolic Blood Pressure 2025-01-20 09:19:00.000 122 mm [Hg] Systolic Blood Pressure 2025-01-16 12:52:00.000 114 mm [Hg] Diastolic Blood Pressure 2025-02-21 09:10:00.000 64 mm [Hg] Diastolic Blood Pressure 2025-02-20 13:21:00.000 70 mm [Hg] Diastolic Blood Pressure 2025-02-17 10:20:00.000 66 mm [Hg] Diastolic Blood Pressure 2025-02-16 15:00:00.000 76 mm [Hg] Diastolic Blood Pressure 2025-02-13 09:35:00.000 70 mm [Hg] Diastolic Blood Pressure 2025-02-10 10:12:00.000 64 mm [Hg] Diastolic Blood Pressure 2025-02-09 11:29:00.000 76 mm [Hg] Diastolic Blood Pressure 2025-02-07 09:52:00.000 66 mm [Hg] Diastolic Blood Pressure 2025-02-06 10:31:00.000 62 mm [Hg] Diastolic Blood Pressure 2025-02-03 10:18:00.000 76 mm [Hg] Diastolic Blood Pressure 2025-02-01 09:15:00.000 66 mm [Hg] Diastolic Blood Pressure 2025-01-31 09:55:00.000 78 mm [Hg] Diastolic Blood Pressure 2025-01-27 10:21:00.000 68 mm [Hg] Diastolic Blood Pressure 2025-01-24 09:17:00.000 78 mm [Hg] Diastolic Blood Pressure 2025-01-20 09:41:00.000 64 mm [Hg] Diastolic Blood Pressure 2025-01-20 09:19:00.000 64 mm [Hg] Diastolic Blood Pressure 2025-01-16 12:52:00.000 70 mm [Hg] Plan of Treatment Planned Activity Planned Date Details Comments Future Scheduled Test PHYSICAL T HERAPIST TO EVALUATE PATIENT SECONDARY TO FUNCTIONAL DEFICITS/SAFETY CONCERNS. [code = PHYSICAL THERAPIST TO EVALUATE PATIENT SECONDARY TO FUNCTIONAL DEFICITS/SAFETY CONCERNS.] Future Scheduled Test PHYSICAL T HERAPIST TO ASSESS BEST PRACTICE INTERVENTIONS TO ASSIST PATIENTS TO IMPROVE OR STABILIZE MEDICAL STATUS AND PREVENT RE-HOSPITALIZATION. MEASURES INCLUDING REVIEW AND IDENTIFICATION OF CONCERNS FOR THE FOLLOWING AREAS: DRUG REGIMEN, ENVIRONMENTAL SAFETY ISSUES AND FALLS, PRESSURE ULCERS, PAIN, AND DISEASE MANAGEMENT. [code = PHYSICAL THERAPIST TO ASSESS BEST PRACTICE INTERVENTIONS TO ASSIST PATIENTS TO IMPROVE OR STABILIZE MEDICAL STATUS AND PREVENT RE-HOSPITALIZATION. MEASURES INCLUDING REVIEW AND IDENTIFICATION OF CONCERNS FOR THE FOLLOWING AREAS: DRUG REGIMEN, ENVIRONMENTAL SAFETY ISSUES AND FALLS, PRESSURE ULCERS, PAIN, AND DISEASE MANAGEMENT.] Future Scheduled Test THERAPIST TO REVIEW PATIENT MEDICATIONS (PRESCRIPTION/OTC). INSTRUCT PATIENT/CAREGIVER ON ALL MEDICATIONS INCLUDING PURPOSE, WHEN TO TAKE, IMPORTANCE OF MEDICATION ADHERENCE, MONITORING OF EFFECTIVENESS, ADVERSE DRUG EVENTS, POSSIBLE SIDE EFFECTS, AND WHEN TO NOTIFY AGENCY OR PHYSICIAN/PROVIDER OF ANY CONCERNS. THERAPIST TO PROVIDE FUNCTIONAL STRATEGIES/TECHNIQUES FOR MANAGING MEDICATIONS. [code = THERAPIST TO REVIEW PATIENT MEDICATIONS (PRESCRIPTION/OTC). INSTRUCT PATIENT/CAREGIVER ON ALL MEDICATIONS INCLUDING PURPOSE, WHEN TO TAKE, IMPORTANCE OF MEDICATION ADHERENCE, MONITORING OF EFFECTIVENESS, ADVERSE DRUG EVENTS, POSSIBLE SIDE EFFECTS, AND WHEN TO NOTIFY AGENCY OR PHYSICIAN/PROVIDER OF ANY CONCERNS. THERAPIST TO PROVIDE FUNCTIONAL STRATEGIES/TECHNIQUES FOR MANAGING MEDICATIONS.] Future Scheduled Test PHYSICAL T HERAPY FOR OBSERVATION AND ASSESSMENT OF PAIN, EFFECTIVENESS OF PAIN MANAGEMENT REGIMEN AND SKILLED TEACHING RELATED TO PAIN MANAGEMENT. THERAPIST TO REPORT INCREASED PAIN LEVEL TO PHYSICIAN FOR PROMPT INTERVENTION. [code = PHYSICAL THERAPY FOR OBSERVATION AND ASSESSMENT OF PAIN, EFFECTIVENESS OF PAIN MANAGEMENT REGIMEN AND SKILLED TEACHING RELATED TO PAIN MANAGEMENT. THERAPIST TO REPORT INCREASED PAIN LEVEL TO PHYSICIAN FOR PROMPT INTERVENTION.] Future Scheduled Test PHYSICAL T HERAPY TO ESTABLISH /UPGRADE/DOWNGRADE THERAPEUTIC EXERCISE PROGRAM AND INSTRUCT PATIENT/CAREGIVER ON EXERCISE PRECAUTIONS WITH WRITTEN HOME PROGRAM. MAY INCLUDE PROM, AAROM, AROM, RROM APPROPRIATE TO IMPROVE FUNCTIONAL STRENGTH AND RANGE OF MOTION. [code = PHYSICAL THERAPY TO ESTABLISH /UPGRADE/DOWNGRADE THERAPEUTIC EXERCISE PROGRAM AND INSTRUCT PATIENT/CAREGIVER ON EXERCISE PRECAUTIONS WITH WRITTEN HOME PROGRAM. MAY INCLUDE PROM, AAROM, AROM, RROM APPROPRIATE TO IMPROVE FUNCTIONAL STRENGTH AND RANGE OF MOTION.] Future Scheduled Test PHYSICAL T HERAPY TO INSTRUCT PATIENT/CAREGIVER ON BED MOBILITY TECHNIQUES TO IMPROVE PATIENT MOBILITY AND POSITIONING TECHNIQUES IN ORDER TO INCREASE PATIENT S COMFORT AND DECREASE RISK OF SKIN BREAKDOWN. [code = PHYSICAL THERAPY TO INSTRUCT PATIENT/CAREGIVER ON BED MOBILITY TECHNIQUES TO IMPROVE PATIENT MOBILITY AND POSITIONING TECHNIQUES IN ORDER TO INCREASE PATIENT S COMFORT AND DECREASE RISK OF SKIN BREAKDOWN.] Future Scheduled Test PHYSICAL T HERAPY TO INSTRUCT PATIENT/CAREGIVER ON SAFE TRANSFER TECHNIQUES USING PROPER BODY MECHANICS AND EQUIPMENT. [code = PHYSICAL THERAPY TO INSTRUCT PATIENT/CAREGIVER ON SAFE TRANSFER TECHNIQUES USING PROPER BODY MECHANICS AND EQUIPMENT.] Future Scheduled Test PHYSICAL T HERAPY TO INSTRUCT PATIENT/CAREGIVER ON GAIT TRAINING TECHNIQUES USING APPROPRIATE ASSISTIVE DEVICE, PROPER BODY MECHANICS TO IMPROVE MOBILITY, AND PREVENT INJURY OF PATIENT AND/OR CAREGIVER. [code = PHYSICAL THERAPY TO INSTRUCT PATIENT/CAREGIVER ON GAIT TRAINING TECHNIQUES USING APPROPRIATE ASSISTIVE DEVICE, PROPER BODY MECHANICS TO IMPROVE MOBILITY, AND PREVENT INJURY OF PATIENT AND/OR CAREGIVER.] Future Scheduled Test PHYSICAL T HERAPY TO INSTRUCT PATIENT/CAREGIVER ON BALANCE AND BALANCE STRATEGIES TO IMPROVE SAFE MOBILITY AND REDUCE RISK FOR FALL AND INJURY [code = PHYSICAL THERAPY TO INSTRUCT PATIENT/CAREGIVER ON BALANCE AND BALANCE STRATEGIES TO IMPROVE SAFE MOBILITY AND REDUCE RISK FOR FALL AND INJURY] Future Scheduled Test PHYSICAL T HERAPY TO ASSESS AND RECOMMEND HOME SAFETY ADAPTATIONS AND EDUCATE PATIENT /CAREGIVER ON FALL PREVENTION STRATEGIES. [code = PHYSICAL THERAPY TO ASSESS AND RECOMMEND HOME SAFETY ADAPTATIONS AND EDUCATE PATIENT /CAREGIVER ON FALL PREVENTION STRATEGIES.] Future Scheduled Test CONTINUE G OALS FROM CURRENT POC WITH EXPECTED DATE OF COMPLETION SPECIFIED ON ORDER FREQUENCY AND DURATION. [code = CONTINUE GOALS FROM CURRENT POC WITH EXPECTED DATE OF COMPLETION SPECIFIED ON ORDER FREQUENCY AND DURATION.] Future Scheduled Test RN TO EVAL UATE PATIENT SECONDARY TO DEFICITS/CONCERNS FOUND DURING EVALUATION INCLUDING MEDICATION MGMT, SURGICAL WOUND MONITORING. [code = RN TO EVALUATE PATIENT SECONDARY TO DEFICITS/CONCERNS FOUND DURING EVALUATION INCLUDING MEDICATION MGMT, SURGICAL WOUND MONITORING.] Future Scheduled Test OCCUPATION AL THERAPIST TO EVALUATE PATIENT SECONDARY TO DEFICITS/CONCERNS FOUND DURING EVALUATION INCLUDING IMMOBILIZED R UE AND DEFICITS WITH ADLS/IADLS COMPLETION. [code = OCCUPATIONAL THERAPIST TO EVALUATE PATIENT SECONDARY TO DEFICITS/CONCERNS FOUND DURING EVALUATION INCLUDING IMMOBILIZED R UE AND DEFICITS WITH ADLS/IADLS COMPLETION.] Future Scheduled Test SUMMARY OF THERAPY EVAL/ASSESSMENT FINDINGS AND REASON(S) SKILLS OF A THERAPIST ARE INDICATED: PHYSICAL THERAPY START OF CARE (01/16/25) RECENT HOSPITALIZATION/INPATIENT ADMISSION RELATED TO: [facility]ITALIZATION DUE TO MD DX: DISPLACED FRACTURE OF RIGHT OLECRANON. PATIENT IS A RIGHT HAND DOMINANT 84 YO FEMALE WITH PHYSICAL THERAPY REFERRAL AFTER [facility]ITALIZATION 01/11 - 01/13/25), FOR ELECTIVE RIGHT OLECRANON ORIF SURGERY BY MD RICH. PATIENT EXPERIENCED MECHANICAL FALL IN DRUG STORE ON 12/25/24 RESULTING IN DISPLACED FRACTURE OF RIGHT OLECRANON PROCES AND NON-DISPLACED FX LEFT PATELLAR. PREVIOUS [facility] HOSPITALIZATION 12/25 - 12/28/24, THEN TRANSITIONED TO [facility] ([facility] 12/28 - 01/11/25), TRANSPORTED TO [facility] FOR RIGHT OLECRANON ORIF. NON-DISPLACED FX LEFT PATELLA TREATED CONSERVATIVELY WITH LEFT KNEE IMMOBILIZER. PAST MD HX: OSTEOPORISIS, COMPRESSION FX OF VERTEBRAE, CHRONIC BACK PAIN, SUBCLINICAL HYPOTHYROIDISM, RESTLESS LEGS SYNDROME, RAYNAUD'S DISEASE, PROLONGED QT INTERFAL, OVARIAN CA, RADIATION PROCTITIS, PERIPHERAL NEUROPATHY, LVH, LEUKOPENIA, INSOMNIA, SBO, DUPUYTREN CONTRACTURE, FATTY LIVER DISEASE, CELIAC ARTERY STENOSIS, ACUIRED LYMPHEDEMA, HTN. [facility] MD RICH DISCHARGE INSTRUCTIONS: NWB RUE, ELEVATE THROUGHOUT DAY, NO LIFTING RUE, PERFORM WRIST AND FINGER EXERCISES. DO NOT BATHE OR SHOWER, KEEP SPLINT CLEAN, DRY AND INTACT. WEAR LEFT KNEE IMMOBILIZER AT ALL TIMES, WBAT LEFT LE PATIENT HAS ORTHO MD RICH FOLLOWUP ON 01/19 WITH CEZAR SHAH AT 9:30 AM NEW OR CHANGED MEDICATIONS PERTINENT TO THE PLAN OF CARE: 5 MG OXYCODONE, ASPIRIN 325 INSTEAD OF 81, CELECOXIB 100 MG 2X DAY, DOCUSATE SODIUM, ACETAMINOPHEN 650 MG PATIENT LIVING SITUATION/CAREGIVER STATUS: PATIENT LIVES WITH STEPHANIE IN SINGLE FAMILY HOME, 2 THRESHOLD STEPS WITHOUT RAIL TO NEGOTIATE. RECENT FALLS: LAST FALL ON 12/25/24 WHEN PATIENT WAS AMB WITHOUT AD IN DRUG STORE PLOF: AMB WITHOUT AD, AMB OUTDOORS WITHOUT AD CLOF: WELCOME VIDEO PLAYED FOR PATIENT, REVIEWED ON-CALL HOURS, SURVEY, SAFETY HANDOUT, ACTION PLAN FOR FALL PREVENTION/HOME SAFETY. PATIENT VERBALIZED UNDERSTANDING. MEDICATIONS RECONCILED WITH NO ISSUES FOUND. DME: TRANSPORT WHEELCHAIR, SBQC, R UE SLING, LEFT KNEE IMMOBILIZER, RAISED TOILET SEAT WITH ARM BARS, WALK IN SHOWER, HANDHELD SHOWERHEAD. PATIENT WEARING R ELBOW IN SLING WITH PROPER APPLICATION, NON-REMOVABLE DRESSING R ELBOW. PATIENT WEARING LEFT KNEE IMMOBLIZER WITH PROPER APPLICATION. SAFETY RECOM [code = SUMMARY OF THERAPY EVAL/ASSESSMENT FINDINGS AND REASON(S) SKILLS OF A THERAPIST ARE INDICATED: PHYSICAL THERAPY START OF CARE (01/16/25) RECENT HOSPITALIZATION/INPATIENT ADMISSION RELATED TO: [facility] DUE TO MD DX: DISPLACED FRACTURE OF RIGHT OLECRANON. PATIENT IS A RIGHT HAND DOMINANT 84 YO FEMALE WITH PHYSICAL THERAPY REFERRAL AFTER [facility] 01/11 - 01/13/25), FOR ELECTIVE RIGHT OLECRANON ORIF SURGERY BY MD RICH. PATIENT EXPERIENCED MECHANICAL FALL IN DRUG STORE ON 12/25/24 RESULTING IN DISPLACED FRACTURE OF RIGHT OLECRANON PROCES AND NON-DISPLACED FX LEFT PATELLAR. PREVIOUS [facility] H[facility]PITALIZATION 12/25 - 12/28/24, THEN TRANSITIONED TO SNF ([facility] 12/28 - 01/11/25), TRANSPORTED TO [facility] FOR RIGHT OLECRANON ORIF. NON-DISPLACED FX LEFT PATELLA TREATED CONSERVATIVELY WITH LEFT KNEE IMMOBILIZER. PAST MD HX: OSTEOPORISIS, COMPRESSION FX OF VERTEBRAE, CHRONIC BACK PAIN, SUBCLINICAL HYPOTHYROIDISM, RESTLESS LEGS SYNDROME, RAYNAUD'S DISEASE, PROLONGED QT INTERFAL, OVARIAN CA, RADIATION PROCTITIS, PERIPHERAL NEUROPATHY, LVH, LEUKOPENIA, INSOMNIA, SBO, DUPUYTREN CONTRACTURE, FATTY LIVER DISEASE, CELIAC ARTERY STENOSIS, ACUIRED LYMPHEDEMA, HTN. [facility] MD RICH DISCHARGE INSTRUCTIONS: NWB RUE, ELEVATE THROUGHOUT DAY, NO LIFTING RUE, PERFORM WRIST AND FINGER EXERCISES. DO NOT BATHE OR SHOWER, KEEP SPLINT CLEAN, DRY AND INTACT. WEAR LEFT KNEE IMMOBILIZER AT ALL TIMES, WBAT LEFT LE PATIENT HAS ORTHO MD RICH FOLLOWUP ON 01/19 WITH CEZAR SHAH AT 9:30 AM NEW OR CHANGED MEDICATIONS PERTINENT TO THE PLAN OF CARE: 5 MG OXYCODONE, ASPIRIN 325 INSTEAD OF 81, CELECOXIB 100 MG 2X DAY, DOCUSATE SODIUM, ACETAMINOPHEN 650 MG PATIENT LIVING SITUATION/CAREGIVER STATUS: PATIENT LIVES WITH STEPHANIE IN SINGLE FAMILY HOME, 2 THRESHOLD STEPS WITHOUT RAIL TO NEGOTIATE. RECENT FALLS: LAST FALL ON 12/25/24 WHEN PATIENT WAS AMB WITHOUT AD IN DRUG STORE PLOF: AMB WITHOUT AD, AMB OUTDOORS WITHOUT AD CLOF: WELCOME VIDEO PLAYED FOR PATIENT, REVIEWED ON-CALL HOURS, SURVEY, SAFETY HANDOUT, ACTION PLAN FOR FALL PREVENTION/HOME SAFETY. PATIENT VERBALIZED UNDERSTANDING. MEDICATIONS RECONCILED WITH NO ISSUES FOUND. DME: TRANSPORT WHEELCHAIR, SBQC, R UE SLING, LEFT KNEE IMMOBILIZER, RAISED TOILET SEAT WITH ARM BARS, WALK IN SHOWER, HANDHELD SHOWERHEAD. PATIENT WEARING R ELBOW IN SLING WITH PROPER APPLICATION, NON-REMOVABLE DRESSING R ELBOW. PATIENT WEARING LEFT KNEE IMMOBLIZER WITH PROPER APPLICATION. SAFETY RECOM] Future Scheduled Test SKILLED NU RSE TO EVALUATE PATIENT, IDENTIFY PRIMARY AND CO-MORBID CONDITIONS CODED PER CODING GUIDELINES, AND DEVELOP PATIENT SPECIFIC PLAN OF CARE THAT INCLUDES PATIENT GOAL FOR HOME HEALTH. PATIENT HAS A RISK OF HOSPITALIZATION AND ED USE. SKILLED NURSE TO ESTABLISH SUPPORT MEASURES TO MINIMIZE RISK OF HOSPITALIZATION AND ED USE, AND INSTRUCT PATIENT/CAREGIVER ON METHODS TO REDUCE AVOIDABLE HOSPITALIZATION AND ED USE. SKILLED NURSE TO PROVIDE INSTRUCTION TO PATIENT/CAREGIVER RELATED TO DISCHARGE PLANNING. SKILLED NURSE TO PERFORM ENVIRONMENTAL SAFETY RISK ASSESSMENT AND FALL RISK ASSESSMENT AND PROVIDE INSTRUCTION TO IMPLEMENT ENVIRONMENTAL SAFETY AND FALL PREVENTION STRATEGIES THROUGHOUT THE CERTIFICATION PERIOD. SKILLED NURSE WILL MAINTAIN SITUATIONAL AWARENESS AND WILL NOTIFY CLINICAL NETWORK SERVICES PROJECT MANAGER AND PHYSICIAN/PROVIDER WITH ANY CHANGE IN CONDITION. SKILLED NURSE FOR OBSERVATION AND ASSESSMENT OF PATIENT S PAIN LEVEL AND EFFECTIVENESS OF PAIN MANAGEMENT REGIMEN. SKILLED NURSE TO INSTRUCT PATIENT/CAREGIVER REGARDING PHARMACOLOGIC AND NON-PHARMACOLOGIC PAIN CONTROL MEASURES. SKILLED NURSE TO REPORT TO PHYSICIAN IF PAIN LEVEL IS OUTSIDE OF ESTABLISHED PARAMETERS. SKILLED NURSE TO ASSESS PATIENT'S SKIN INTEGRITY AND INSTRUCT PATIENT/CAREGIVER ON MEASURES TO PREVENT PRESSURE ULCERS. SKILLED NURSE TO REVIEW PATIENT MEDICATIONS (PRESCRIPTION/OTC). INSTRUCT PATIENT/CAREGIVER ON ALL MEDICATIONS INCLUDING PURPOSE, WHEN TO TAKE, IMPORTANCE OF MEDICATION ADHERENCE, MONITORING OF EFFECTIVENESS, ADVERSE DRUG REACTIONS, POSSIBLE SIDE EFFECTS, AND WHEN TO NOTIFY AGENCY OR PHYSICIAN/PROVIDER OF ANY CONCERNS. SKILLED NURSE TO PROVIDE TEACHING ON SIGNS AND SYMPTOMS AND MANAGEMENT OF HYPERTENSION. SKILLED NURSE FOR O/A AND SKILLED TEACHING RELATED TO ALTERED SKIN INTEGRITY R ELBOW SURGICAL INCISON SKILLED NURSE FOR O/A OF SELF-CARE DEFICITS AND TO PROVIDE TEACHING RELATED TO SAFE PROVISION OF ADLS. SKILLED NURSE TO INSTRUCT PATIENT/CAREGIVER ON S/S OF NEUROPATHY AND METHODS TO MANAGE. SKILLED NURSE FOR O/A, TEACHING RELATED TO SBO, FATTY LIVER FOR EARLY IDENTIFICATION OF EXACERBATION OF DISEASE PROCESS. SKILLED NURSE FOR O/A OF MUSCULOSKELETAL STATUS AND TEACHING ON MEASURES TO MANAGE OSTEOPOROSIS AND TO MAINTAIN SAFETY WITH ACTIVITY SKILLED NURSE FOR O/A AND TEACHING OF ENDOCRINE SYSTEM TO IDENTIFY CHANGES ASSOCIATED WITH EXACERBATION OF HYPOTHYROIDISM FOR EARLY INTERVENTION OF COMPLICATIONS. SKILLED NURSE FOR O/A AND SKILLED TEACHING IN MANAGEMENT OF LEUKOPENIA, LYMPHEDEMA DISEASE. [code = SKILLED NURSE TO EVALUATE PATIENT, IDENTIFY PRIMARY AND CO-MORBID CONDITIONS CODED PER CODING GUIDELINES, AND DEVELOP PATIENT SPECIFIC PLAN OF CARE THAT INCLUDES PATIENT GOAL FOR HOME HEALTH. PATIENT HAS A RISK OF HOSPITALIZATION AND ED USE. SKILLED NURSE TO ESTABLISH SUPPORT MEASURES TO MINIMIZE RISK OF HOSPITALIZATION AND ED USE, AND INSTRUCT PATIENT/CAREGIVER ON METHODS TO REDUCE AVOIDABLE HOSPITALIZATION AND ED USE. SKILLED NURSE TO PROVIDE INSTRUCTION TO PATIENT/CAREGIVER RELATED TO DISCHARGE PLANNING. SKILLED NURSE TO PERFORM ENVIRONMENTAL SAFETY RISK ASSESSMENT AND FALL RISK ASSESSMENT AND PROVIDE INSTRUCTION TO IMPLEMENT ENVIRONMENTAL SAFETY AND FALL PREVENTION STRATEGIES THROUGHOUT THE CERTIFICATION PERIOD. SKILLED NURSE WILL MAINTAIN SITUATIONAL AWARENESS AND WILL NOTIFY CLINICAL NETWORK SERVICES PROJECT MANAGER AND PHYSICIAN/PROVIDER WITH ANY CHANGE IN CONDITION. SKILLED NURSE FOR OBSERVATION AND ASSESSMENT OF PATIENT S PAIN LEVEL AND EFFECTIVENESS OF PAIN MANAGEMENT REGIMEN. SKILLED NURSE TO INSTRUCT PATIENT/CAREGIVER REGARDING PHARMACOLOGIC AND NON-PHARMACOLOGIC PAIN CONTROL MEASURES. SKILLED NURSE TO REPORT TO PHYSICIAN IF PAIN LEVEL IS OUTSIDE OF ESTABLISHED PARAMETERS. SKILLED NURSE TO ASSESS PATIENT'S SKIN INTEGRITY AND INSTRUCT PATIENT/CAREGIVER ON MEASURES TO PREVENT PRESSURE ULCERS. SKILLED NURSE TO REVIEW PATIENT MEDICATIONS (PRESCRIPTION/OTC). INSTRUCT PATIENT/CAREGIVER ON ALL MEDICATIONS INCLUDING PURPOSE, WHEN TO TAKE, IMPORTANCE OF MEDICATION ADHERENCE, MONITORING OF EFFECTIVENESS, ADVERSE DRUG REACTIONS, POSSIBLE SIDE EFFECTS, AND WHEN TO NOTIFY AGENCY OR PHYSICIAN/PROVIDER OF ANY CONCERNS. SKILLED NURSE TO PROVIDE TEACHING ON SIGNS AND SYMPTOMS AND MANAGEMENT OF HYPERTENSION. SKILLED NURSE FOR O/A AND SKILLED TEACHING RELATED TO ALTERED SKIN INTEGRITY R ELBOW SURGICAL INCISON SKILLED NURSE FOR O/A OF SELF-CARE DEFICITS AND TO PROVIDE TEACHING RELATED TO SAFE PROVISION OF ADLS. SKILLED NURSE TO INSTRUCT PATIENT/CAREGIVER ON S/S OF NEUROPATHY AND METHODS TO MANAGE. SKILLED NURSE FOR O/A, TEACHING RELATED TO SBO, FATTY LIVER FOR EARLY IDENTIFICATION OF EXACERBATION OF DISEASE PROCESS. SKILLED NURSE FOR O/A OF MUSCULOSKELETAL STATUS AND TEACHING ON MEASURES TO MANAGE OSTEOPOROSIS AND TO MAINTAIN SAFETY WITH ACTIVITY SKILLED NURSE FOR O/A AND TEACHING OF ENDOCRINE SYSTEM TO IDENTIFY CHANGES ASSOCIATED WITH EXACERBATION OF HYPOTHYROIDISM FOR EARLY INTERVENTION OF COMPLICATIONS. SKILLED NURSE FOR O/A AND SKILLED TEACHING IN MANAGEMENT OF LEUKOPENIA, LYMPHEDEMA DISEASE.] Goal Patient Goal - I WANT TO WAL K BETTER. Goal Provider Goal - PHYSICAL THERAPY EVALUATION TO BE COMPLETED WITH RECOMMENDATIONS AND/OR WRITTEN TREATMENT PLAN OF CARE ESTABLISHED FOR THE PHYSICIAN S SIGNATURE Goal Provider Goal - PATIENT/CAREGIVER VERBALIZES UNDERSTANDING OF THE INITIAL BEST PRACTICE RECOMMENDATIONS. PHYSICIAN TO BE NOTIFIED APPROPRIATE FOR ANY CHANGES OR COMPLICATIONS THROUGHOUT THE CERTIFICATION PERIOD. Goal Provider Goal - PATIENT/CAREGIVER WILL VERBALIZE/DEMONSTRATE UNDERSTANDING OF MEDICATIONS AND STRATEGIES/TECHNIQUES FOR MEDICATION MANAGEMENT BY THE END OF THE CERTIFICATION PERIOD. Goal Provider Goal - INCREASED PAIN OR INEFFECTIVE PAIN CONTROL MEASURES WILL BE IDENTIFIED AND PROMPTLY REPORTED TO THE PHYSICIAN. PATIENT/CAREGIVER WILL DEMONSTRATE EFFECTIVE PAIN MANAGEMENT. Goal Provider Goal - PATIENT/CAREGIVER WILL PERFORM THERAPEUTIC EXERCISE/S AND DEMONSTRATE PARTICIPATION IN A HOME PROGRAM. Goal Provider Goal - PATIENT/CAREGIVER WILL DEMONSTRATE IMPROVED BED MOBILITY TECHNIQUES. Goal Provider Goal - PATIENT/CAREGIVER WILL DEMONSTRATE SAFE TRANSFERS USING APPROPRIATE ASSISTIVE DEVICE, BODY MECHANICS AND EQUIPMENT. Goal Provider Goal - PATIENT/CAREGIVER WILL DEMONSTRATE IMPROVED GAIT TECHNIQUES TO MINIMIZE RISK OF INJURY. Goal Provider Goal - PATIENT/CAREGIVER WILL DEMONSTRATE IMPROVED BALANCE AND REDUCE THE RISK OF FALLS AND INJURY. Goal Provider Goal - PATIENT/CAREGIVER WILL DEMONSTRATE/VERBALIZE UNDERSTANDING OF RECOMMENDATIONS TO INCREASE SAFETY IN THE HOME AND FALL PREVENTION. Goal Provider Goal - PHYSICAL THERAPY REASSESSMENT WILL BE COMPLETED WITH ESTABLISHMENT OF CONTINUED POC. Goal Provider Goal - NURSING EVALUATION TO BE COMPLETE WITH RECOMMENDATIONS AND WRITTEN TREATMENT PLAN OF CARE ESTABLISHED FOR PHYSICIAN S SIGNATURE Goal Provider Goal - OCCUPATIONAL THERAPY EVALUATION TO BE COMPLETED WITH RECOMMENDATIONS AND/OR WRITTEN TREATMENT PLAN OF CARE ESTABLISHED FOR THE PHYSICIAN S SIGNATURE. Goal Provider Goal - Goal Provider Goal - A PLAN OF CARE WILL BE ESTABLISHED THAT MEETS PATIENT'S MCC NEEDS AND INCLUDES PATIENT GOAL FOR HOME HEALTH. PATIENT WILL HAVE SUPPORT MEASURES ESTABLISHED TO PREVENT HOSPITALIZATION AND ED USE AND PATIENT/CAREGIVER WILL VERBALIZE/DEMONSTRATE METHODS TO REDUCE AVOIDABLE HOSPITALIZATION AND ED USE BY END OF EPISODE. PATIENT/CAREGIVER WILL VERBALIZE UNDERSTANDING OF DISCHARGE PLANNING INSTRUCTIONS BY DATE OF DISCHARGE. PATIENT/CAREGIVER WILL VERBALIZE/DEMONSTRATE EFFECTIVE ENVIRONMENTAL SAFETY AND FALL PREVENTION STRATEGIES, WILL REMAIN SAFE IN THE COMMUNITY, AND WILL BE FREE OF DANGER TO SELF AND OTHERS THROUGHOUT THE CERTIFICATION PERIOD. PATIENT/CAREGIVER WILL DEMONSTRATE UNDERSTANDING OF PHARMACOLOGIC AND NONPHARMACOLOGIC PAIN CONTROL MEASURES AND PATIENT WILL HAVE IMPROVEMENT IN PAIN INTERFERING WITH ACTIVITY EVIDENCED BY PAIN AT A LEVEL THAT IS ACCEPTABLE TO THE PATIENT AND PAIN LEVEL WITHIN ESTABLISHED PARAMETERS BY END OF CERTIFICATION PERIOD. PATIENT/CAREGIVER WILL VERBALIZE UNDERSTANDING OF PRESSURE ULCER PREVENTION BY END OF THE EPISODE. PATIENT/CAREGIVER WILL VERBALIZE UNDERSTANDING OF EDUCATION PROVIDED ON MEDICATIONS BY THE END OF THE CERTIFICATION PERIOD. PATIENT/CAREGIVER WILL VERBALIZE SIGNS AND SYMPTOMS OF HYPERTENSION AND WILL BE ABLE TO DEMONSTRATE ABILITY TO MANAGE EXACERBATION BY END OF THE EPISODE. PATIENT/CAREGIVER WILL VERBALIZE/DEMONSTRATE UNDERSTANDING OF TEACHING RELATED TO ALTERED SKIN INTEGRITY BY END OF CERTIFICATION PERIOD. PATIENT/CAREGIVER WILL VERBALIZE/DEMONSTRATE UNDERSTANDING OF SAFE PROVISION OF ADLS BY THE END OF THE CERTIFICATION PERIOD. PATIENT/CAREGIVER WILL VERBALIZE S/S OF NEUROPATHY AND METHODS TO MANAGE BY END OF CERTIFICATION PERIOD. EXACERBATIONS OF GASTROINTESTINAL DISEASE WILL BE PROMPTLY IDENTIFIED AND INTERVENTIONS IMPLEMENTED TO MINIMIZE RISKS TO PATIENT BY END OF EPISODE. PATIENT/CAREGIVER WILL VERBALIZE/DEMONSTRATE ABILITY TO MANAGE MUSCULOSKELETAL DISEASE WHILE MAINTAINING SAFETY THROUGHOUT THE EPISODE. PATIENT/CAREGIVER WILL VERBALIZE SIGNS AND SYMPTOMS OF EXACERBATION OF ENDOCRINE DIAGNOSIS TO REPORT TO NURSE/PHYSICIAN THROUGHOUT THE CERTIFICATION PERIOD. PATIENT/CAREGIVER WILL VERBALIZE/DEMONSTRATE THE ABILITY TO MANAGE CIRCULATORY DISEASE PROCESS AND EXACERBATIONS WILL BE IDENTIFIED FOR EARLY INTERVENTION THROUGHOUT THE CERTIFICATION PERIOD. Encounters Start Date/Time End Date/Time Encounter Type Admission Type Attending Clinicians [facility] Facility Care Department Encounter ID Discharge Date Discharge Status Discharge Condition Discharge Reason Percent Goals Met 2025-01-16 00:00:00 2025-03-16 00:00:00 Outpatient NEW ADMISSION [facility] [id number] 54.90
== END 2025-02-24 08:05 | disposition home or self-care (01) ==
LOC: HO.HOSX 08:04
PROVIDERS: Visit Provider Physician Assistant
DX: S82.002D Unspecified fracture of left patella, subsequent encounter for closed fracture with routine healing (principal); S52.021D Displaced fracture of olecranon process without intraarticular extension of right ulna, subsequent encounter for closed fracture with routine healing; X58.XXXD Exposure to other specified factors, subsequent encounter
CPT/HCPCS: 73080; 73562; 99212

== ENCOUNTER 2025-02-24 08:43 | Outpatient (AMB) | payer MEDICARE, SELFPAY ==
--- NOTE | 2025-02-24 09:09 | A.OFFVIS_ITS ---
Intake Visit Reasons: PO RT elbow ORIF 01/11/25 NE-w/XR+LT knee Intake Note: Moriah is a 84 year old female who presents today for a post op appointment for her right elbow ORIF 01/11/25 NE. At the last visit kade and steri strips were placed. Patient reports she is doing great. She is hoping to get rid of her braces. Allergies oxycodone Allergy (Intermediate, Verified 02/24/25 09:09) Nausea amoxicillin Allergy (Unknown, Verified 02/24/25 09:09) Unknown clavulanic acid (From Augmentin) Allergy (Unknown, Verified 02/24/25 09:09) Unknown methenamine Allergy (Unknown, Verified 02/24/25 09:09) Unknown nirmatrelvir (From Paxlovid) Allergy (Unknown, Verified 02/24/25 09:09) Unknown nitrofurantoin Allergy (Unknown, Verified 02/24/25 09:09) Unknown ritonavir (From Paxlovid) Allergy (Unknown, Verified 02/24/25 09:09) Unknown lisinopril Adverse Reaction (Intermediate, Verified 02/24/25 09:09) Cough HPI HPI PO RT elbow ORIF 01/11/25 NE-w/XR+LT knee: Details: Ms. Zacarias is an 84-year-old female who presents to the office today for routine followup s/p right elbow ORIF performed on 01/11/25 as week as a left patella nondisplaced fracture. Patient has been working with physical therapy on elbow ROM. She has not been working on any knee ROM and the brace is still locked in extension. She is WBAT on the left lower extremity. NWB on the right upper extremity. [facility] Medical History Subclinical hypothyroidism RLS (restless legs syndrome) Raynauds disease Prolonged QT interval Radiation proctitis Peripheral neuropathy Osteoporosis LVH (left ventricular hypertrophy) Leukopenia Insomnia Compression fracture of vertebra Ovarian cancer Small bowel obstruction Dupuytren contracture Fatty liver Chronic back pain Celiac artery stenosis Acquired lymphedema Hypertension Surgical History History of gastric surgery Social History Household Members: Spouse Housing: [facility] Do you presently have visiting nurse or other home services: No Comment: COUNTS CORRECT Patient Tobacco Use Status: Never used Tobacco Second Hand Smoke Exposure: No service: No Current occupational status: retired Review of Systems Const All systems reviewed & are unremarkable except as noted in HPI and below Physical Exam Const General: cooperative, healthy appearing and no acute distress Resp Effort & Inspection: normal respiratory effort and able to speak in complete sentences Extrem Other: Right elbow incision site is c/d/i. No surrounding erythema or drainage. No signs of infection. Able to flex and extend the elbow with limitation due to stiffness. Able to flex and extend at the wrist. Sensation reportedly intact. Radial pulse intact. Left knee skin clean dry and intact. No tenderness to the patella over the fracture site. Sensation reportedly intact. Able to dorsiflex and plantar flex. NVI. Psych Appearance: grossly normal Mental Status: mental status grossly normal Attitude: cooperative Assessment & Plan Assessment & Plan (1) Nondisplaced fracture of left patella: Code(s): S82.002A - Unspecified fracture of left patella, initial encounter for closed fracture Category: Medical (2) Olecranon fracture: Code(s): S52.023A - Displaced fracture of olecranon process without intraarticular extension of unspecified ulna, initial encounter for closed fracture Category: Medical Plan Ms. Zacarias is an 84-year-old female who presents to the office today for routine followup s/p right elbow ORIF performed on 01/11/25 as week as a left patella nondisplaced fracture. Patient has been working with physical therapy on elbow ROM. She has not been working on any knee ROM and the brace is still locked in extension. She is WBAT on the left lower extremity. NWB on the right upper extremity. While in the office today, we discussed continuing physical therapy for right elbow ijrcw-su-yspson. The brace may be fully unlocked with no lqzno-yf-yulzyq restrictions with the goal to wean her out of the brace within the next 2 weeks. Patient should still be mindful of weight-bearing activities on the right upper extremity and refrain from weight-bearing for a total of 3 months postoperatively. In regards to the left knee physical therapy should has been w orking on range of motion since the last visit. I would like them to work on range of motion unlocking the ACL brace by 10 degrees each week until full range of motion has been achieved. Once full range of motion has been achieved and patient has good quad control she may discontinue the brace. I would like the patient to follow up in 6 weeks with repeat x-rays of the right elbow and left knee, sooner if needed. Orders: Orders XR elbow RT min 3V Today M25.529 - Pain in unspecified elbow XR knee LT 3V Today M25.569 - Pain in unspecified knee PT Evaluation and Treatment Today S52.023A - Displaced fracture of olecranon process without intraarticular extension of unspecified ulna, initial encounter for closed fracture PT Evaluation and Treatment Today S82.002A - Unspecified fracture of left patella, initial encounter for closed fracture Coding Level of Care Code Global (39273) Diagnoses Nondisplaced fracture of left patella S82.002A Olecranon fracture S52.023A
== END 2025-02-24 10:05 | disposition home or self-care (01) ==
LOC: HO.HOS 08:44
PROVIDERS: PCP Nurse Practitioner Family; Visit Provider Physician Assistant
DX: S82.002A Unspecified fracture of left patella, initial encounter for closed fracture (principal); S52.023A Displaced fracture of olecranon process without intraarticular extension of unspecified ulna, initial encounter for closed fracture
CPT/HCPCS: 99024

== ENCOUNTER → 2025-02-24 08:48 | Outpatient (BNV) | payer MEDICARE, SELFPAY | PROVIDERS: Visit Provider Radiology Diagnostic Radiology | DX: S82.002K Unspecified fracture of left patella, subsequent encounter for closed fracture with nonunion (principal); S52.031K Displaced fracture of olecranon process with intraarticular extension of right ulna, subsequent encounter for closed fracture with nonunion | CPT/HCPCS: 73080; 73562 ==

== ENCOUNTER 2025-03-27 11:30 | Outpatient (REF) | payer MEDICARE, SELFPAY ==
--- NOTE | ~2025-03-27 | XR_ITS ---
EXAMINATION: XR ELBOW 3 VIEWS RIGHT HISTORY: M25.529 - Pain in unspecified elbow COMPARISON: Comparison is made with the prior examination dated 02/24/2025. FINDINGS: Three views of the right elbow are submitted. Osseous mineralization is normal. The patient is again noted to be status post internal fixation of a fracture of the olecranon process of the ulna. The fracture line remains visible. The joint spaces are preserved. There is a persistent joint effusion. XR/XR elbow RT min 3V IMPRESSION: Internal fixation of a fracture of the olecranon process of the ulna without change. Electronically signed by: Kb Cartwright MD 03/27/2025 01:14 PM EST
--- NOTE | ~2025-03-27 | XR_ITS ---
EXAMINATION: XR KNEE 3 VIEWS LEFT HISTORY: M25.569 - Pain in unspecified knee COMPARISON: Comparison is made with the prior examination dated 02/24/2025. FINDINGS: Standing AP views of both knees and additional lateral and sunrise patellar views of the left knee are submitted. Osseous mineralization is normal. Again seen is a fracture of the patella. The fracture line remains visible. There is mild narrowing of the medial compartment. The soft tissues are unremarkable. XR/XR knee LT 3V IMPRESSION: Fracture of the patella without significant change. Electronically signed by: Kb Cartwright MD 03/27/2025 01:16 PM MENDY
--- OUTSIDE RECORDS SUMMARY | 2025-03-27 15:15 | XMS_ITS | Clinical Summary ---
Author Organization [facility] Address [address] [place] [id number] Phone Care Team Providers Care Solar Pv Installer Name Role Phone Elaine Blackburn NP Primary Care Provider [phone] Allergies No known active allergies Medications No known medications Active Problems No known active problems Encounters Date Type Department Care Team Description 01/12/2025 Orders Only [facility] [address] [place] [id number] Homehealth, Interface ProviderMD from Last 3 Months Social History Tobacco [...] this topic Medical Devices Not on file Insurance [place] BL[place]AC[place] BL[place] RE[place]ACEMENT [facility] MEDICARE PPO BLUE REPLACEMENT [facility] MEDICARE PPO BLUE REPLACEMENT [facility] MEDICARE PPO BLUE REPLACEMENT [employer] [place] [place] Care Teams Solar Pv Installer Relationship Specialty Start Date End Date Elaine Blackburn NP [address] [place] [address] PCP - General Nurse Practitioner 11/02/23 Additional Source Comments The information contained in this document represents components of the legal health record. It is not the complete legal health record.[facility]
--- OUTSIDE RECORDS SUMMARY | 2025-03-27 15:15 | XMS_ITS | Encounter Summary ---
Author Organization [facility] Address [address] [address] Phone Care Team Providers Care Lpn Rn Hospice Name Role Phone Pcp, Unknown Primary Care Provider Elaine Manning NP Primary Care Provider [phone] Reason for Referral * Physical Therapy (Routine) - Closed Specialty Diagnoses / Procedures Referred By Contariana t Referred To Contact Physical Therapy Diagnoses Encounter for rehabilitation Shay Baker MD [address] [place] [address] Phone: tel: fax: mailto:[email or web address] [place] [address] Phone: tel: Referral ID Status Reason Start Date Expiration Date Visits Re quested Visits Authorized [id number] Closed 08/06/2023 2024 99 99 Encounter Details Date Type Department Care Team (Latest Contact Info) Description 08/06/2023 Transcribe Orders [facility] [address] [place] [address] Shay Baker MD [address] [place] [address] [email or web address] Encounter for rehabilitation (Primary Dx) Social History [...] Date/Time Associated Diagnosis Comments AMB REFERRAL TO [facility] PHYSICAL THERAPY Routine 10/28/2023 10:13 AM EDT Encounter for rehabilitation documented in this encounter Results * Ambulatory referral to [facility] Physical Therapy (10/28/2023 10:13 AM EDT) Other us Shay Baker MD AMB [facility] REFERRALS Final R esult documented in this encounter Visit Diagnoses Diagnosis Encounter for rehabilitation- Primary documented in this encounter Care Teams Lpn Rn Hospice Relationship Specialty Start Date End Date Pcp, Unknown PCP - General 08/04/23 11/01/23 Elaine Blackburn NP [address] [place] [address] PCP - General Nurse Practitioner 11/02/23 documented as of this encounter Additional Source Comments The information contained in this document represents components of the legal health record. It is not the complete legal health record.[facility]
== END 2025-03-27 11:31 | disposition home or self-care (01) ==
LOC: HO.HOSX 11:30
PROVIDERS: Visit Provider Physician Assistant
DX: S52.021D Displaced fracture of olecranon process without intraarticular extension of right ulna, subsequent encounter for closed fracture with routine healing (principal); S82.002D Unspecified fracture of left patella, subsequent encounter for closed fracture with routine healing; Z98.890 Other specified postprocedural states; X58.XXXD Exposure to other specified factors, subsequent encounter
CPT/HCPCS: 73080; 73562; 99212

== ENCOUNTER 2025-03-27 12:51 | Outpatient (AMB) | payer MEDICARE, SELFPAY ==
--- NOTE | 2025-03-27 13:03 | MHC.OFFVIS ---
Intake Visit Reasons: PO -RT elbow ORIF 01/11/25 NE-w/XR+LT knee Intake Note: Moriah is a 84 year old female who presents today as a PO RT elbow ORIF 01/11/25 NE-w/XR+LT knee. At last visit on 02/24/25 we referred her to physical therapy. At today's visit she states that physical therapy is going well and she feels that she no longer needs the knee brace. Patient states that physical therapy's goal was to DC her from wearing the brace on 03/29 but she would like to discuss her options today. She noted the right elbow is feeling great today, no pain or discomfort to report. Allergies oxycodone Allergy (Intermediate, Verified 02/24/25 09:09) Nausea amoxicillin Allergy (Unknown, Verified 02/24/25 09:09) Unknown clavulanic acid (From Augmentin) Allergy (Unknown, Verified 02/24/25 09:09) Unknown methenamine Allergy (Unknown, Verified 02/24/25 09:09) Unknown nirmatrelvir (From Paxlovid) Allergy (Unknown, Verified 02/24/25 09:09) Unknown nitrofurantoin Allergy (Unknown, Verified 02/24/25 09:09) Unknown ritonavir (From Paxlovid) Allergy (Unknown, Verified 02/24/25 09:09) Unknown lisinopril Adverse Reaction (Intermediate, Verified 02/24/25 09:09) Cough HPI HPI PO -RT elbow ORIF 01/11/25 NE-w/XR+LT knee: Details: Ms. Zacarias is an 84-year-old female who presents to the office today for routine followup s/p right elbow ORIF performed on 01/11/25 as week as a left patella nondisplaced fracture. Patient has been working with physical therapy on elbow ROM. She has not been working on any knee ROM with physical therapy as well. She is WBAT on the left lower extremity. NWB on the right upper extremity. [facility] Medical History Subclinical hypothyroidism RLS (restless legs syndrome) Raynauds disease Prolonged QT interval Radiation proctitis Peripheral neuropathy Osteoporosis LVH (left ventricular hypertrophy) Leukopenia Insomnia Compression fracture of vertebra Ovarian cancer Small bowel obstruction Dupuytren contracture Fatty liver Chronic back pain Celiac artery stenosis Acquired lymphedema Hypertension Surgical History History of gastric surgery Social History Household Members: Spouse [facility] Do you presently have visiting nurse or other home services: No Comment: COUNTS CORRECT Patient Tobacco Use Status: Never used Tobacco Second Hand Smoke Exposure: No service: No Current occupational status: retired Review of Systems Const All systems reviewed & are unremarkable except as noted in HPI and below Physical Exam Const General: cooperative, healthy appearing and no acute distress Resp Effort & Inspection: normal respiratory effort and able to speak in complete sentences Extrem Other: Right elbow incision site is c/d/i. No surrounding erythema or drainage. No signs of infection. Able to flex and extend the elbow with limitation due to stiffness. Able to flex and extend at the wrist. Sensation reportedly intact. Radial pulse intact. Left knee skin clean dry and intact. No tenderness to the patella over the fracture site. Sensation reportedly intact. Able to dorsiflex and plantar flex. NVI. Psych Appearance: grossly normal Mental Status: mental status grossly normal Attitude: cooperative Assessment & Plan Assessment & Plan (1) Nondisplaced fracture of left patella: Code(s): S82.002A - Unspecified fracture of left patella, initial encounter for closed fracture Category: Medical (2) Olecranon fracture: Code(s): S52.023A - Displaced fracture of olecranon process without intraarticular extension of unspecified ulna, initial encounter for closed fracture Category: Medical Plan Ms. Zacarias is an 84-year-old female who presents to the office today for routine followup s/p right elbow ORIF performed on 01/11/25 as week as a left patella nondisplaced fracture. Patient has been working with physical therapy on elbow ROM. She has not been working on any knee ROM with physical therapy as well. She is WBAT on the left lower extremity. NWB on the right upper extremity. While in the office today, I have recommended discontinuing the knee braces the patient has full range of motion. She will continue working on physical therapy to achieve strengthening of the right lower extremity. She may also progress to light strengthening of the left upper extremity. She should remain nonweightbearing on the left upper extremity for a total of 3 months postoperatively in which the patient understands and accepts. She will use pain as her guide with return to normal activities. She reports no discomfort/pain with ambulation or right upper extremity activities. Follow up with Orthopedics will be PRN, sooner if needed. X-rays of the right elbow which were obtained while in the office today and were reviewed by me, Twila Jimenez PA-C, revealed intact orthopedic hardware with routine healing. X-rays of the left knee which were obtained while in the office today and were reviewed by me, Twila Jimenez PA-C, revealed routine healing left patellar fracture. Orders: Orders XR elbow RT min 3V Today M25.529 - Pain in unspecified elbow XR knee LT 3V Today M25.569 - Pain in unspecified knee Coding Level of Care Code Global (39355) Diagnoses Nondisplaced fracture of left patella S82.002A Olecranon fracture S52.023A
== END 2025-03-27 14:03 | disposition home or self-care (01) ==
LOC: HO.HOS 12:51
PROVIDERS: Visit Provider Physician Assistant
DX: S82.002A Unspecified fracture of left patella, initial encounter for closed fracture (principal); S52.023A Displaced fracture of olecranon process without intraarticular extension of unspecified ulna, initial encounter for closed fracture
CPT/HCPCS: 99024

== ENCOUNTER → 2025-03-27 12:56 | Outpatient (BNV) | payer MEDICARE, SELFPAY | PROVIDERS: Visit Provider Radiology Diagnostic Radiology | DX: S82.002D Unspecified fracture of left patella, subsequent encounter for closed fracture with routine healing (principal); S52.001D Unspecified fracture of upper end of right ulna, subsequent encounter for closed fracture with routine healing | CPT/HCPCS: 73080; 73562 ==